=== PATIENT | female | born 1945 | race Caucasian/White ===

== ENCOUNTER 2016-08-18 09:17 | Emergency (ER) | payer MEDICARE, OTHER ==
[2016-08-18 09:34] VITALS: BP 166/71
--- NOTE | 2016-08-18 09:51 | ERNOTE ---
Upper Extremity HPI - General Extremities Pain Location: shoulder: left Time Seen by Provider: 08/18/16 09:39 Source: patient, family Exam Limitations: no limitations - Immun/Allergies/Home Medications Immunizations: IMMUNIZATION HX Immunizations Up to Date Yes History of Influenza Vaccine Yes Hx Pneumococcal Vaccination Yes Allergies/Adverse Reactions: Allergies Allergy/AdvReac Type Severity Reaction Status Date / Time morphine Allergy Intermediate Itching Verified 08/18/16 09:35 nortriptyline Allergy Verified 08/18/16 09:35 sulfamethoxazole AdvReac Verified 08/18/16 09:35 [From Bactrim] trimethoprim [From Bactrim] AdvReac Verified 08/18/16 09:35 Home Medications: HOME MEDICATIONS ALPRAZolam [Xanax] 1 mg PO QID PRN 12/14/14 [Last Taken Unknown] Amiodarone HCl [Cordarone] 100 mg PO DAILY 12/14/14 [Last Taken Unknown] Aspirin [Aspirin Enteric Coated] 81 mg PO DAILY 12/14/14 [Last Taken Unknown] Atorvastatin Calcium [Lipitor] 10 mg PO DAILY 12/14/14 [Last Taken Unknown] Diphenoxylate HCl/Atropine [Lomotil 2.5-0.025 mg Tablet] 2 each PO QID PRN 12/14 [Last Taken Unknown] Insulin Glargine,Hum.rec.anlog [Lantus] 14 units SC HS 12/14/14 [Last Taken Unknown] Mycophenolate Mofetil [Cellcept] 1,000 mg PO BID 12/14/14 [Last Taken Unknown] Saccharomyces Boulardii [Florastor] 250 mg PO BID 12/14/14 [Last Taken Unknown] Tacrolimus [Prograf] 2 mg PO BID 12/14/14 [Last Taken Unknown] Baclofen 10 mg PO Q6H PRN 01/24/15 [Last Taken Unknown] Calcium Phosphate Trib/Vit D3 [Citracal + D3 Gummies] 1 each PO QAM 01/24/15 [ Last Taken Unknown] Levothyroxine Sodium [Synthroid] 100 mcg PO DAILY 04/03/15 [Last Taken Unknown] Acetaminophen [Tylenol] 1,000 mg PO Q6H PRN #0 tablet 04/11/15 [Last Taken Unknown] Ferrous Sulfate 325 mg PO BIDWM #60 tablet 04/11/15 [Last Taken Unknown] Hydrocodone/Acetaminophen [Lorcet 5-325 mg Tablet] 1 each PO Q6H PRN #40 tablet 04/11/15 [Last Taken Unknown] Insulin Regular, Human [Humulin R] 10 unit SC AC #1 vial 04/11/15 [Last Taken Unknown] Multivitamins [Multivitamin Shawn] 1 cap PO DAILY #30 capsule 04/11/15 [Last Taken Unknown] Ondansetron HCl [Zofran] 4 mg PO Q6H PRN #100 tablet 04/11/15 [Last Taken Unknown] Lisinopril 5 mg PO DAILY 07/31/16 [Last Taken Unknown] Mirtazapine [Remeron] 30 mg PO HS 07/31/16 [Last Taken Unknown] - History of Present Illness Narrative: Patient tripped over a dog toy in the kitchen and hit her shoulder. The shoulder is bruised, pain 2/10 at rest 8/10 with movement. she thinks that she might have hit her head as well but denies any pain at this time. The patient has an extensive past history with diabetes, renal transplant and chronic neck pain. Most recently she was admitted for dehydration, UTI and tacrolimus toxicity Date (Duration): 08/18/16 Time (Timing): 01:30 Occurred: this morning Location of Incident: home Severity: moderate Method of Injury: Reports: fell Reason for Fall: Reports: tripped Loss of Consciousness: Reports: no loss of consciousness Modifying Factors - (Improves): Reports: rest Modifying Factors - (Worsens): Reports: movement Associated Symptoms: Denies: tingling, weakness, numbness distally, loss of power (rt arm) Other Injuries: Reports: none Prior Treament: Reports: recently hospitalized Review of Systems - Review of Systems Constitutional: Present: recent illness. Absent: fever, chills EYE: Absent: double vision ENT: Absent: sore throat, throat swelling Respiratory: Absent: shortness of breath Cardiology: Absent: chest pain Gastrointestinal/Abdominal: Absent: nausea, vomiting, abdominal pain Genitourinary: Present: no symptoms reported Musculoskeletal: Present: See HPI, neck pain - chronic, no new Skin: Absent: rash Neurological: Absent: weakness, numbness - Patient's Past Medical History Patient History - Medical: Anxiety, Arthritis, Diabetes Type 2, Depression, GERD , Hypothyroidism, Renal Disease, Renal Failure, UTI'S, Other Patient History - Cardiac/Respiratory: Atrial Fibrillation, Hypertension, Hyperlipidemia Patient History - Cancer: Kidney, Other Patient History - Surgical Procedures: Cataracts, Cholecystectomy, Hysterectomy , Total Hip Replacement, Total Knee Replacement, T & A, Other LMP (females 10-50): Menopausal - Social History Living Situations: home Smoking Status: Never smoker Alcohol Use: sober Drug Use: none - Immunizations Immunizations Up to Date: Yes Physical Exam - Physical Exam General Appearance: Present: wd/wn, alert, no apparent distress Eye Exam: Normal inspection: bilateral, PERRL: bilateral Ears, Nose, Throat: Present: other - superficial abrasion on left yarsani, no swelling, no bleeding Neck: Present: normal inspection, nontender, full range of motion Respiratory: Present: no respiratory distress, no accessory muscle use, lungs clear, decreased breath sounds Cardiovascular/Chest: Present: regular rate, rhythm, no murmur Gastrointestinal/Abdominal: Present: nontender, nondistended, soft Extremity Exam: Present: normal inspection, non-tender, no edema, normal range of motion, other - left shoulder ecchymosis and tenderness, normal passive ROM, pain on active ROM, other joint exams normal Neurological Exam: Present: alert, oriented, normal mood/affect, no motor/ sensory deficits Skin Exam: Present: normal color, warm/dry ED Progress - Vital Signs Patient's Vital Signs:: I have reviewed the patient's vital signs. Vital Signs: Vital Signs 08/18/16 09:29 Temperature 35.5 C L Pulse Rate 68 Respiratory 16 Rate Blood Pressure 166/71 O2 Sat by Pulse 98 Oximetry - X-Ray X-Ray #1 X-Ray: shoulder - clavicle fx Interpretation: Reviewed by me X-Ray #2 X-Ray: clavicle - clavicle fx Interpretation: Reviewed by me - Progress/Reassessment Chief Complaint: Shoulder Injury/Pain Progress Note-Subjective: 08/18/16 10:25 discussed Xray results with patient and 08/18/16 10:28 discussed with Williams Casillas, arm sling is okay, follow up in one week Departure Clinical Impression: Clavicle fracture Qualifiers: Encounter type: initial encounter Clavicle location: lateral end Fracture type : closed Fracture alignment: displaced Laterality: left Qualified Code(s): S42.032A - Displaced fracture of lateral end of left clavicle, initial encounter for closed fracture - Departure Disposition: Home self-care Condition: Good Instructions: Clavicle Fracture, [id number] Referrals: Frank Fisher, PAC [[facility]] - 08/26/16 2:00 pm
== END 2016-08-18 10:45 | disposition home or self-care (01) ==
LOC: ER 09:17
DX: S42.032A Displaced fracture of lateral end of left clavicle, initial encounter for closed fracture (principal); Z78.0 Asymptomatic menopausal state; Z90.710 Acquired absence of both cervix and uterus; Z90.49 Acquired absence of other specified parts of digestive tract; Z96.649 Presence of unspecified artificial hip joint; Z96.659 Presence of unspecified artificial knee joint; W18.09XA Striking against other object with subsequent fall, initial encounter; Y92.000 Kitchen of unspecified non-institutional (private) residence as the place of occurrence of the external cause

== ENCOUNTER 2016-09-21 15:27 | Emergency (ER) | payer MEDICARE, OTHER ==
--- OUTSIDE RECORDS SUMMARY | 2016-09-21 16:23 | XMS REPORT | Continuity of Care Document ---
:1945 Author Organization [facility] ([facility]) Address [address] [place] [address] Phone [phone] Care Team Providers Name Role Phone Dwaine Niño Primary Care Provider [phone] Source Comments This disclosure is being made pursuant to the Care Everywhere program, applicable federal and state laws, and may not contain all informaitonavailable regarding this patient.[facility] ([facility]) Active Allergies and Adverse Reactions Allergen Noted Date Severity Reactions Comments Nortriptyline Urticaria (Hives) Current Medications Prescription Sig. Disp. Refills Start Date End Date Status atorvastatin take 10 mg by mouth Active (LIPITOR) 10 mg at bedtime. tablet esomeprazole take 40 mg by mouth Active (NEXIUM) 40 mg every morning capsule before breakfast. glucose blood 1 Strip by 1 Each 11 01/22/2009 Active test strips Miscellaneous route (ACCU-CHEK RUBIO) before each meal strip and at bedtime. Indications: Abnormal Glucose Tolerance aspirin 81 mg tablet take 1 Tab by mouth Active daily. MULTIVITAMINS take 1 Tab by mouth Active (MULTIVITAMIN PO) daily. levothyroxine Take 100 mcg by Active (SYNTHROID) 100 mcg mouth every morning tablet before breakfast. Indications: Hypothyroidism amiodarone 200 mg Take 100 mg by Active tablet mouth daily CALCIUM PHOSPHATE Take 1 Tab by mouth Active TRIB/VIT D3 daily (CITRACAL + D3, CALCIUM PHOS, PO) Walker ( ROLLING 1 Device daily 1 Each 0 12/20/2014 Active WALKER) misc ALPRAZolam 1 mg Take 1 Tab (1 mg 90 Tab 0 12/22/2014 Active tablet total) by mouth 3 times daily as needed baclofen 10 mg Take 1 Tab (10 mg 60 Tab 0 12/22/2014 Active tablet total) by mouth 2 times daily as needed insulin glargine Inject 15 Units 1 Vial 11 12/22/2014 Active (LanTUS) 100 unit/mL subcutaneously at injection vial bedtime insulin regular Inject 2-10 Units 1 Vial 11 12/22/2014 Active (HumuLIN R) 100 subcutaneously 3 unit/mL injection times daily before vial meals 2 units for BS 150-200; 4 units for BS 201-250; 6 units for BS 251-300; 8 units for BS 301-350; 10 units for BS > 350 and call HYDROCODONE-ACETAMIN 12/14/2014 Active OPHEN 5-325 mg per tablet diphenoxylate-atropi Active ne PO lisinopril 5 mg Take 5 mg by mouth Active tablet daily. SERTraline 50 mg Take 100 mg by Active tablet mouth at bedtime. mirtazapine 30 mg Take 30 mg by mouth Active tablet at bedtime. ferrous sulfate 325 Take 325 mg by Active mg (65 mg iron) mouth 2 times tablet daily. ondansetron 4 mg Take 4 mg by mouth Active tablet 4 times daily as needed. HYDROmorphone 2 mg Take 2 mg by mouth 0 07/18/2015 Active tablet 2 times daily as needed. NOVOLOG FLEXPEN 100 5 09/07/2015 Active unit/mL (3 mL) injection pen FLORASTOR 250 mg Take 250 mg by 5 10/31/2015 Active capsule mouth 2 times daily. tacrolimus 0.5 mg Take 4 capsules (2 240 capsule 12/19/2015 Active capsule mg total) by mouth 2 times daily. mycophenolate Take 2 tablets 120 tablet 11 01/01/2016 Active mofetil 500 mg (1,000 mg total) by tablet mouth 2 times daily. ranitidine 150 mg Take 150 mg by 5 04/02/2016 Active tablet mouth 2 times daily. denosumab (PROLIA) Inject 1 mL (60 mg 1 Syringe 2 05/16/2016 Active 60 mg/mL injection total) subcutaneously once. Every 6 months. cholecalciferol Take 2,000 Units by Active (VITAMIN D3) 2,000 mouth daily. unit tablet acetaminophen 325 mg Take 325 mg by Active tablet mouth every 4 hours as needed. Active Problems Problem Noted Date Abdominal wall hernia 04/08/2016 Periprosthetic fracture around internal prosthetic left hip joint 01/18/2015 Fracture of left femur 12/14/2014 Left leg pain 09/07/2014 Cellulitis 09/07/2014 Venous stasis dermatitis of left lower extremity 09/07/2014 Facet arthropathy, cervical 06/21/2013 Small bowel obstruction, partial 09/07/2011 Aftercare following organ transplant 11/05/2009 Anemia associated with chronic renal failure 07/18/2009 Encounter for long-term (current) use of medications 04/09/2009 Overview: icd10 HTN 02/06/2009 Hyperlipidemia 02/06/2009 Type II DM 02/06/2009 IBD 02/06/2009 Depression 02/06/2009 Diverticulosis 02/06/2009 Sleep apnea 02/06/2009 Renal Cell Carcinoma s/p nephrectomy 10/10/2008 Kidney Transplant 08/14/2008 Overview: ESRD from Diabetic nephropathy. kidney transplant 01/18/2009 Headache(784.0) 08/20/2007 Cervical spondylosis without myelopathy 05/27/2007 Most Recent Encounters Date Type Specialty Providers Description 09/18/2016 Ancillary Orders Radiology Alhyari, Dx: Lymphadenopathy MD Yael (Primary Dx) 09/11/2016 Orders Only Transplant Praveen Forte, Dx: Aftercare MD following organ transplant (Primary Dx) 08/25/2016 Telephone Med GI/Hepatology Adeelc, Provider, Chief Comp: Results 08/12/2016 Nurse Triage Med GI/Hepatology Brianna Chief Comp: Post-op Huey Guzman RN Follow-up Call 08/11/2016 [facility] Med GI/Hepatology Sreedhar Zhou, Dx: Other iron Encounter deficiency anemias Provider, Ddc Capsule 08/04/2016 Telephone Renal and Stephanie Hoffman Chief Comp: Medication Hypertension MD Question 07/25/2016 - Hospital Patient Services 07/26/2016 Encounter 07/23/2016 Telephone Transplant Mary Anne Zuluaga Chief Comp: UNRULY Guzman Coordination Of Care 07/14/2016 Telephone Med GI/Hepatology Xavier Hunter, Chief Comp: Results 07/10/2016 Telephone Transplant Mary Anne Zuluaga Chief Comp: Megan RN Coordination Of Care 07/01/2016 Orders/Notes Med GI/Hepatology Sreedhar Zhou, Dx: Other iron MD deficiency anemias (Primary Dx) Immunizations Name Dates Previously Given Next Due Influenza 05/15/2009 Influenza, unspecified 06/03/2011 Pneumococcal, unspecified 04/03/2014 Social History Tobacco Use Types Packs/Day Years Used Date Never Smoker Smokeless Tobacco: Never Used Tobacco Cessation:Counseling Given: Yes Comments: Alcohol Use Drinks/Week oz/Week Comments No Last Filed Vital Signs Vital Sign Reading Time Taken Blood Pressure 148/55 06/12/2016 10:32 AM [facility] [employer] Pulse 64 06/12/2016 8:10 AM [employer] Temperature 36.8 C (98.2 F) 06/12/2016 8:10 AM [employer] [employer] Respiratory Rate 18 05/19/2016 3:18 PM CDT Height 1.753 m (5' 9") 06/12/2016 8:10 AM [employer] [employer] Weight 65 kg (143 lb 4.8 oz) 06/12/2016 8:10 AM [employer] Body Mass Index 21.15 06/12/2016 8:10 AM [employer] [employer] Oxygen Saturation 97% 06/12/2016 10:32 AM [facility] [employer] Plan of Care Date Type Specialty Providers Description 10/31/2016 Appointment Med GI/Hepatology Xavier Hunter MD Subj: Appointment [address] [place] [address] [phone] (Fax) 02/26/2017 Appointment Anesthesiology 1, [facility] Subj: Appointment Provider Scheduled Health Maintenance Due Date Last Done Comments Hepatitis B Vaccine (1 of 3 - 1945 Primary Series) Tdap Vaccine 01/12/1956 DIABETIC: Microalbumin 1963 Td Vaccine 1963 Mammogram 1985 Colonoscopy 1995 Zoster Vaccine 2005 Pneumococcal Vaccine (1 of 2 2010 - PCV13) DIABETIC: Hemoglobin A1C 02/18/2010 08/21/2009, 10/10/2008 DIABETIC: Cholesterol 12/11/2010 12/11/2009, Additional history exists 06/18/2009, 04/16/2009 Diabetic: Hdl 12/11/2010 12/11/2009, Additional history exists 06/18/2009, 04/16/2009 Diabetic: Ldl 12/11/2010 12/11/2009, Additional history exists 06/18/2009, 04/16/2009 DIABETIC: Triglycerides 12/11/2010 12/11/2009, Additional history exists 06/18/2009, 04/16/2009 DIABETIC: Foot Exam 01/14/2011 DIABETIC: Retinal Eye Exam 01/14/2011 Influenza Vaccine: Seasonal 03/03/2016 06/03/2011, (#1) 05/15/2009 [facility] Annual Coding Diabetes 08/03/2016 12/14/2014, Additional history exists without Complication 12/14/2014, 09/07/2014 [facility] Annual Coding Paraplegia 08/03/2016 HCV Screening Completed 10/10/2008, 04/22/2006 Osteoporosis Screening (DXA Completed 05/13/2016 Bone Density) Results from Last 3 Months EXTERNAL CO2 (09/15/2016) Component Value Range Ext CO2 27.4 24-32 MEQ/L EXTERNAL PLATELET COUNT (09/15/2016) Component Value Range Ext Platelet Count 148 EXTERNAL WBC (09/15/2016) Component Value Range Ext WBC 3.3 K/MM3 EXTERNAL HEMOGLOBIN (09/15/2016) Component Value Range Ext Hemoglobin 8.8 G/DL EXTERNAL POTASSIUM (09/15/2016) Component Value Range Ext Potassium 4.9 3.5-5.0 MEQ/L EXTERNAL CREATININE (09/15/2016) Component Value Range Ext Creatinine 0.99 0.7-1.4 MG/DL EXTERNAL BLOOD UREA NITROGEN (BUN) (09/15/2016) Component Value Range Ext BUN 22(A) 10-20 MG/DL EXTERNAL TACROLIMUS DRUG LEVEL (09/15/2016) Component Value Range Ext Tacrolimus 5.0 5-15 NG/ML ENDOSCOPY CAPSULE (08/12/2016 2:53 PM) Jackie Bowers MD 08/12/20162:53 PM ENDOSCOPY CAPSULE DATE OF PROCEDURE: 08/11/2016 OPERATION/PROCEDURE Video Capsule Endoscopy INDICATIONS: Iron deficiency anemia, chronic diarrhea ATTENDING STAFF Jackie Narvaez MD FELLOW Rafal Valadez MD REFERRING PHYSICIAN: Angel Quintanilla MD CONSENT FOR OPERATION OR PROCEDURE Informed consent was obtained from the patient. HISTORY OF PRESENT ILLNESS Briefly, Giselle Martino is a 71 y.o. female with ELI and chronic diarrhea, hx of renal transplantation, immunosuppressed EGD 01/2016: anteritis, gastric polyp Colon 01/2016: mild diverticulosis, small hemorrhoid PHYSICAL EXAM General: Alert, oriented and in no acute distress. HEENT: Oropharynx normal. Lungs clear bilaterally. Heart regular. Abdomen soft, nontender, nondistended, with normal bowel sounds. PROCEDURAL MEDICATIONS None DESCRIPTION OF OPERATION/PROCEDURE The patient was prepped in standard fashion prior to capsule administration. The capsule was administered on 08/11/2016 830AM. Images were recorded on a mobile recording device, and subsequently transferred to a computer, then analyzed with the use of proprietary software. FINDINGS Total recording time: 07:46:55 The first gastric image was at 00:01:04 The first duodenal image was at 02:51:54 The first cecal image was at 07:05:34 Limited views of the esophagus showed normal Limited views of the stomach showed gastritis Deformed pylorus with a fresh hematin Small bowel prep was good Duodenum, normal mucosa Normal mucosa, mid small bowel Normal mucosa, small bowel A solitary linear ulcer in the TI Colonic evaluation was limited by retained stool. Visualized mucosa appeared normal COMPLICATIONS None reported. IMPRESSIONS 1. Gastritis with deformed pylorus. A small fresh hematin was seen around the area. 2. A solitary linear ulcer in the TI Initial Reviewer Rafal Valadez MD Fellow Physician Department of Internal Medicine Division of Gastroenterology and Hepatology Teaching Statement I have personally reviewed images on this study and confirm the pertinent findings.I have discussed the case with the resident/fellow and agree with the findings and plan as documented. Final Reviewer: Jackie Narvaez MD
[2016-09-21 16:41] LABS: Hematocrit 28.2 % (37.0-47.0); Hemoglobin 8.7 gm/dL (12.5-16.0); Mean Cell Volume 94.3 fl (78-100); Mean Corpuscular Hemoglobin 29.1 pg (27-31); Mean Corpuscular Hgb Conc 30.9 g/dl (32-36); Neutrophil # 3.7 K/mm3 (1.3-6.0); Neutrophil % 72.5 % (42-75.0); Platelet Count 143 K/mm3 (150-450); Red Blood Count 2.99 M/mm3 (4.2-5.4); Red Cell Distribution Width 16.7 % (11.5-14.0); White Blood Count 5.1 K/mm3 (4.0-10.5)
[2016-09-21 17:01] LABS: Albumin * 3.6 gm/dl (3.4-5.0); Anion Gap 11.4 mmol/L (6.8-13.8); BUN/Creatinine Ratio 15.6 (9.0-21.6); Bilirubin, Total 0.2 mg/dL (0.0-1.1); Ca. Corrected For Albumin 8.2 mg/dL (8.4-10.2); Calcium * 8.2 mg/dL (7.9-10.9); Carbon Dioxide 28.2 mmol/L (24-32.6); Potassium 4.6 mmol/L (3.4-4.6); T4 Free * 1.22 ng/dL (0.76-1.46); TSH * 1.457 uIU/mL (0.358-3.74); Total Protein 6.9 gm/dL (6.2-8.2)
--- NOTE | 2016-09-21 17:06 | ERNOTE ---
Trauma/Assault HPI - Narrative Date of Service: 09/21/16 - General Stated Complaint: FALL ON THURSDAY - DIZZINESS, VOMITTING Time Seen by Provider: 09/21/16 16:12 Source: patient, family Exam Limitations: clinical condition - Immun/Allergies/Home Medications Immunizations: IMMUNIZATION HX Immunizations Up to Date Yes History of Influenza Vaccine Yes Hx Pneumococcal Vaccination Yes Allergies/Adverse Reactions: Allergies morphine Allergy (Intermediate, Verified 09/21/16 16:10) Itching nortriptyline Allergy (Verified 09/21/16 16:10) sulfamethoxazole [From Bactrim] Adverse Reaction (Verified 09/21/16 16:10) trimethoprim [From Bactrim] Adverse Reaction (Verified 09/21/16 16:10) Home Medications: HOME MEDICATIONS ALPRAZolam [Xanax] 1 mg PO QID PRN 12/14/14 [Last Taken Unknown] Amiodarone HCl [Cordarone] 100 mg PO DAILY 12/14/14 [Last Taken Unknown] Aspirin [Aspirin Enteric Coated] 81 mg PO DAILY 12/14/14 [Last Taken Unknown] Atorvastatin Calcium [Lipitor] 10 mg PO DAILY 12/14/14 [Last Taken Unknown] Diphenoxylate HCl/Atropine [Lomotil 2.5-0.025 mg Tablet] 2 each PO QID PRN 12/14 [Last Taken Unknown] Insulin Glargine,Hum.rec.anlog [Lantus] 14 units SC HS 12/14/14 [Last Taken Unknown] Mycophenolate Mofetil [Cellcept] 1,000 mg PO BID 12/14/14 [Last Taken Unknown] Saccharomyces Boulardii [Florastor] 250 mg PO BID 12/14/14 [Last Taken Unknown] Tacrolimus [Prograf] 2 mg PO BID 12/14/14 [Last Taken Unknown] Baclofen 10 mg PO Q6H PRN 01/24/15 [Last Taken Unknown] Calcium Phosphate Trib/Vit D3 [Citracal + D3 Gummies] 1 each PO QAM 01/24/15 [ Last Taken Unknown] Levothyroxine Sodium [Synthroid] 100 mcg PO DAILY 04/03/15 [Last Taken Unknown] Acetaminophen [Tylenol] 1,000 mg PO Q6H PRN #0 tablet 04/11/15 [Last Taken Unknown] Ferrous Sulfate 325 mg PO BIDWM #60 tablet 04/11/15 [Last Taken Unknown] Hydrocodone/Acetaminophen [Lorcet 5-325 mg Tablet] 1 each PO Q6H PRN #40 tablet 04/11/15 [Last Taken Unknown] Insulin Regular, Human [Humulin R] 10 unit SC AC #1 vial 04/11/15 [Last Taken Unknown] Multivitamins [Multivitamin Shawn] 1 cap PO DAILY #30 capsule 04/11/15 [Last Taken Unknown] Ondansetron HCl [Zofran] 4 mg PO Q6H PRN #100 tablet 04/11/15 [Last Taken Unknown] Lisinopril 5 mg PO DAILY 07/31/16 [Last Taken Unknown] Mirtazapine [Remeron] 30 mg PO HS 07/31/16 [Last Taken Unknown] - History of Present Illness Narrative: About one week ago she slipped on the carpet at home, falling backward, hitting the back of her head on the bathroom linoleum floor. Unknown if there was loss of consciousness. Disoriented for about a half hour afterwards. Headaches, neck pain and dizziness since, along with nausea. 3 or 4 days ago, vomited once. Today worse, so came by private vehicle to the [facility] ER. There is also ongoing investigation of anemia, as to where her blood is going. Hgb hanging out about 8. Gastroenterology involved in that process. Location Occurred: Reports: home Pain Location: Reports: head, neck Method of Injury: Reports: fall Severity: mild, moderate Modifying Factors - (Improves): Reports: other - nothing Modifying Factors - (Worsens): Reports: jarring, movement Loss of Consciousness: Reports: unsure Associated Symptoms - Trauma: Reports: headache, dizziness Review of Systems - Review of Systems Constitutional: Present: no symptoms reported EYE: Present: no symptoms reported ENT: Present: no symptoms reported Respiratory: Present: no symptoms reported Cardiology: Present: no symptoms reported Gastrointestinal/Abdominal: Present: nausea, vomiting Genitourinary: Present: no symptoms reported Musculoskeletal: Present: See HPI Skin: Present: no symptoms reported Neurological: Present: See HPI Endocrine: Present: no symptoms reported Hematologic/Lymphatic: Present: no symptoms reported Psych: Present: no symptoms reported All Other Systems: All systems neg except as marked - Patient's Past Medical History Patient History - Medical: Anxiety, Arthritis, Diabetes Type 2, Depression, GERD , Hypothyroidism, Renal Disease, Renal Failure, UTI'S Patient History - Cardiac/Respiratory: Atrial Fibrillation Patient History - Cancer: Kidney, Other Patient History - Surgical Procedures: Cataracts, Cholecystectomy, Hysterectomy , Total Hip Replacement, Total Knee Replacement, T & A, Other Patient History - Other: None LMP (females 10-50): Menopausal - Social History Living Situations: home Abuse History: No History of abuse Psych History: No pertinent hx Alcohol Use: sober Drug Use: none - Immunizations Immunizations Up to Date: Yes Hx Pneumococcal Vaccination: Yes History of Influenza Vaccine: Yes Physical Exam - Physical Exam General Appearance: Present: wd/wn, alert, no apparent distress Eye Exam: Normal inspection: bilateral, PERRL: bilateral, EOMI: bilateral Ears, Nose, Throat: Present: normal ENT inspection, hearing decreased Neck: Present: normal inspection, tender posterior midline Respiratory: Present: no respiratory distress, normal breath sounds Cardiovascular/Chest: Present: regular rate, rhythm, no murmur Gastrointestinal/Abdominal: Present: normal bowel sounds, nontender, nondistended, soft, no organomegaly Back Exam: Present: normal inspection, no CVA tenderness, no vertebral tenderness Extremity Exam: Present: normal inspection, no edema Neurological Exam: Present: alert, oriented, normal mood/affect, no motor/ sensory deficits Skin Exam: Present: normal color, warm/dry ED Progress - Results and Orders Patient's Lab Results:: I have reviewed the patient's lab results. - Vital Signs Patient's Vital Signs:: I have reviewed the patient's vital signs. Vital Signs: Vital Signs 09/21/16 16:03 Temperature 36.4 C L Pulse Rate 73 Respiratory 16 Rate Blood Pressure 121/58 O2 Sat by Pulse 99 Oximetry - CT/Ultrasound CT/Ultrasound Narrative: I spoke with the radiologist about her neck and head CT. Neck ok. Head CT shows a very small subarrachnoid hemorrhage with now mass effect. - Progress/Reassessment Chief Complaint: Fall Departure Clinical Impression: Subarachnoid hemorrhage Concussion Qualifiers: Encounter type: initial encounter Loss of consciousness presence/duration: with LOC of 30 min or less Qualified Code(s): S06.0X1A - Concussion with loss of consciousness of 30 minutes or less, initial encounter - Departure Disposition: Home self-care Condition: Good Instructions: Traumatic Brain Injury Additional Instructions: No aspirin till further notice. No medicine like ibuprofen till further notice. Followup with your doctor sometime next week. Rest. Referrals: Dwaine Niño MD [Primary Care Provider] -
[2016-09-21 18:10] VITALS: BP 121/52
== END 2016-09-21 18:20 | disposition home or self-care (01) ==
LOC: ER 15:27
DX: S06.5X1A Traumatic subdural hemorrhage with loss of consciousness of 30 minutes or less, initial encounter (principal); S06.0X1A Concussion with loss of consciousness of 30 minutes or less, initial encounter; W01.198A Fall on same level from slipping, tripping and stumbling with subsequent striking against other object, initial encounter; Y92.002 Bathroom of unspecified non-institutional (private) residence as the place of occurrence of the external cause; E03.9 Hypothyroidism, unspecified

== ENCOUNTER 2017-02-14 11:48 | Observation (INO) | payer MEDICARE, OTHER ==
[2017-02-14] MEDS ORDERED: DIPHTH,PERTUSS(ACELL),TET VAC 0.5 ML VIAL IM ONE ×2 (12:21→12:25)
[2017-02-14] MEDS ORDERED: NORMAL SALINE 500 ML IV ONE (13:39)
[2017-02-14 13:53] LABS: Hematocrit 32.5 % (37.0-47.0); Hemoglobin 9.9 gm/dL (12.5-16.0); Mean Corpuscular Hemoglobin 29.6 pg (27-31); Mean Corpuscular Hgb Conc 30.5 g/dl (32-36); Mean Platelet Volume 10.4 fl (6.0-9.5); Neutrophil # 4.1 K/mm3 (1.3-6.0); Neutrophil % 69.5 % (42-75.0); Platelet Count 135 K/mm3 (150-450); Red Blood Count 3.35 M/mm3 (4.2-5.4); Red Cell Distribution Width 14.6 % (11.5-14.0); White Blood Count 5.8 K/mm3 (4.0-10.5)
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
[2017-02-14 14:15] LABS: Albumin * 3.6 gm/dl (3.4-5.0); Anion Gap 10.9 mmol/L (6.8-13.8); BUN/Creatinine Ratio 18.8 (9.0-21.6); Bilirubin, Total 0.3 mg/dL (0.0-1.1); CKMB 2.5 ng/mL (0.0-9.0); Ca. Corrected For Albumin 9.5 mg/dL (8.4-10.2); Calcium * 9.5 mg/dL (7.9-10.9); Carbon Dioxide 31.5 mmol/L (24-32.6); Potassium 5.4 mmol/L (3.4-4.6); T4 Free * 1.27 ng/dL (0.76-1.46); TSH * 0.535 uIU/mL (0.358-3.74); Total Protein 6.9 gm/dL (6.2-8.2); Troponin I 0.022 ng/ml (0.00-0.10)
[2017-02-14] MEDS ORDERED: ENOXAPARIN SODIUM 30 MG/0.3 ML SYRG SC ONE ×3 (15:07→15:13)
[2017-02-14] MEDS ORDERED: METOPROLOL TARTRATE 25 MG TABLET PO ONE (15:08)
[2017-02-14] MEDS ORDERED: METOPROLOL TARTRATE 25 MG TABLET ONE (15:10)
[2017-02-14] MEDS ORDERED: AMIODARONE HCL 200 MG TABLET PO STA (15:34)
[2017-02-14] MEDS ORDERED: WARFARIN SODIUM 10 MG TABLET PO STA (15:36)
[2017-02-14] MEDS ORDERED: ACETAMINOPHEN 325 MG TABLET PO PRN (15:36)
[2017-02-14 15:41] LABS: INR 1.07 INR (0.90-1.10); Prothrombin Time (Patient) 11.1 Seconds (9.4-11.4)
[2017-02-14] MEDS ORDERED: ONDANSETRON HCL 4 MG TABLET PO PRN (15:43)
[2017-02-14] MEDS ORDERED: DIPHENOXYLATE HCL/ATROP SULF 2.5 MG TABLET PO PRN (15:43)
[2017-02-14] MEDS ORDERED: ALPRAZolam 1 MG TABLET PO PRN (15:43)
--- NOTE | 2017-02-14 15:58 | HP ---
Chief Complaint - Chief Complaint Date of Service: 02/14/17 Time of Service: 15:47 Chief Complaint: Fell History of Present Illness: The patient is a 72 year old female who presented to the [facility] ED with her ex . She stated she was sitting on the toilet last night and fell asleep, falling forward face first into the ground. She awoke when she hit ground and was able to crawl into her bedroom, but unable to get up off floor. She laid there from 2100 to about 0730 this morning until her ex found her. Her ex said she was awake and alert yet asking repetitive questions, but she has improved as the day has progressed. He stated he helped her back into bed and she "fell right asleep". She said she was feeling lightheaded and dizzy while sitting on the toilet. She has been alert and awake, and knows that she is in the ER, thinks the month is November, knows correct year and president. She follows all commands. Denies CP, SOB or neck tenderness. Her monitor however, showed uncontrolled atrial fibrillation 110-140. Her ex stated she was treated for a fib 2 years ago, but that it resolved. She has been on amiodarone to keep it controlled. She is not on an anticoagulant at the present time. Her usual sees Dr. Niño in [place] and her centrifuge separator tender is Dr. Schneider. - Patient's Past Medical History Patient History - Medical: Anxiety, Arthritis, Diabetes Type 2, Depression, GERD , Hypothyroidism, Renal Disease, Renal Failure, UTI'S Patient History - Cardiac/Respiratory: Atrial Fibrillation Patient History - Cancer: Kidney, Other Patient History - Surgical Procedures: Cataracts, Cholecystectomy, Hysterectomy , Total Hip Replacement, Total Knee Replacement, T & A, Other Patient History - Other: None LMP (females 10-50): Menopausal - Social History Living Situations: home Abuse History: No History of abuse Psych History: No pertinent hx Alcohol Use: sober Drug Use: none - Immunizations Immunizations Up to Date: Yes Hx Pneumococcal Vaccination: Yes History of Influenza Vaccine: Yes Review Of Systems (GEN) - Review of Systems Generalized/Overall Review: Present: Malaise EENTM: Present: No Symptoms Reported Respiratory: Present: No Symptoms Reported Cardiac: Present: No Symptoms Reported Abdominal: Present: No Symptoms Reported Genitourinary: Present: No Symptoms Reported Musculoskeletal: Present: No Symptoms Reported Neurological: Present: Headache Skin: Present: No Symptoms Reported Endocrine: Present: No Symptoms Reported Misc: All systems neg except as marked Allergies/Adverse Reactions: Allergies Allergy/AdvReac Type Severity Reaction Status Date / Time morphine Allergy Intermediate Itching Verified 02/14/17 11:58 nortriptyline Allergy Verified 02/14/17 11:58 sulfamethoxazole AdvReac Verified 02/14/17 11:58 [From Bactrim] trimethoprim [From Bactrim] AdvReac Verified 02/14/17 11:58 Home Medications: HOME MEDICATIONS ALPRAZolam [Xanax] 1 mg PO QID PRN 12/14/14 [Last Taken Unknown] Amiodarone HCl [Cordarone] 100 mg PO DAILY 12/14/14 [Last Taken Unknown] Aspirin [Aspirin Enteric Coated] 81 mg PO DAILY 12/14/14 [Last Taken Unknown] Atorvastatin Calcium [Lipitor] 10 mg PO DAILY 12/14/14 [Last Taken Unknown] Diphenoxylate HCl/Atropine [Lomotil 2.5-0.025 mg Tablet] 2 each PO QID PRN 12/14 [Last Taken Unknown] Insulin Glargine,Hum.rec.anlog [Lantus] 14 units SC HS 12/14/14 [Last Taken Unknown] Mycophenolate Mofetil [Cellcept] 1,000 mg PO BID 12/14/14 [Last Taken Unknown] Saccharomyces Boulardii [Florastor] 250 mg PO BID 12/14/14 [Last Taken Unknown] Tacrolimus [Prograf] 2 mg PO BID 12/14/14 [Last Taken Unknown] Baclofen 10 mg PO Q6H PRN 01/24/15 [Last Taken Unknown] Calcium Phosphate Trib/Vit D3 [Citracal + D3 Gummies] 1 each PO QAM 01/24/15 [ Last Taken Unknown] Levothyroxine Sodium [Synthroid] 100 mcg PO DAILY 04/03/15 [Last Taken Unknown] Acetaminophen [Tylenol] 1,000 mg PO Q6H PRN #0 tablet 04/11/15 [Last Taken Unknown] Ferrous Sulfate 325 mg PO BIDWM #60 tablet 04/11/15 [Last Taken Unknown] HYDROcodone/ACETAMINOPHEN [Lorcet 5-325 mg Tablet] 1 each PO Q6H PRN #40 tablet 04/11/15 [Last Taken Unknown] Insulin Regular, Human [Humulin R] 10 unit SC AC #1 vial 04/11/15 [Last Taken Unknown] Multivitamins [Multivitamin Shawn] 1 cap PO DAILY #30 capsule 04/11/15 [Last Taken Unknown] Ondansetron HCl [Zofran] 4 mg PO Q6H PRN #100 tablet 04/11/15 [Last Taken Unknown] Lisinopril 5 mg PO DAILY 07/31/16 [Last Taken Unknown] Mirtazapine [Remeron] 30 mg PO HS 07/31/16 [Last Taken Unknown] Exam - Exam Vital Signs: Vital Signs - Last Taken Temp 36.8 C 02/14/17 15:33 Pulse 129 H 02/14/17 15:33 Resp 18 02/14/17 15:33 BP 149/91 02/14/17 15:33 Pulse Ox 94 02/14/17 15:33 Constitutional: Present: Alert, Oriented x3, Cooperative, Well developed, Well nourished, No distress ENT Exam: Present: normal ENT inspection, hearing grossly normal Eye Exam: bilateral eye: normal inspection, PERRL, EOMI Neck: Present: normal inspection Back Exam: Present: normal inspection, no CVA tenderness, no vertebral tenderness Respiratory: Present: normal breath sounds, no respiratory distress Cardiovascular/Chest: Present: no chest tenderness, tachycardia, irregularly irregular Abdomen: Present: Normal bowel sounds, soft, nontender, nondistended, no rebound tenderness, no hepatospenomegaly, no masses Extremity: Present: normal range of motion, non-tender, normal inspection, no pedal edema Skin Exam: Present: no cyanosis, cool/dry Neurologic: Present: alert, oriented x 3 Appearance: Present: appropriate appearance, appropriate insight, neat, no memory impairment Eye contact: Present: cooperative, good eye contact, normal speech Thoughts: Present: normal thought pattern Diagnostic Studies: Laboratory Results WBC 5.8 K/mm3 (4.0-10.5) 02/14/17 13:43 RBC 3.35 M/mm3 (4.2-5.4) L 02/14/17 13:43 Hgb 9.9 gm/dL (12.5-16.0) L 02/14/17 13:43 Hct 32.5 % (37.0-47.0) L 02/14/17 13:43 MCV 97.0 fl (78-100) 02/14/17 13:43 MCH 29.6 pg (27-31) 02/14/17 13:43 MCHC 30.5 g/dl (32-36) L 02/14/17 13:43 RDW 14.6 % (11.5-14.0) H 02/14/17 13:43 Plt Count 135 K/mm3 (150-450) L 02/14/17 13:43 MPV 10.4 fl (6.0-9.5) H 02/14/17 13:43 Immature Gran % (Auto) 0.30 % (0.001-0.429) 02/14/17 13:43 Immature Gran # (Auto) 0.02 K/mm3 (0.000-0.0310) 02/14/17 13:43 Neutrophils % 69.5 % (42-75.0) 02/14/17 13:43 Lymphocytes % 18.4 % (20-51) L 02/14/17 13:43 Monocytes % 11.0 % (0.0-9) H 02/14/17 13:43 Eosinophils % 0.3 % (0.0-3.0) 02/14/17 13:43 Basophils % 0.5 % (0.0-1.0) 02/14/17 13:43 Nucleated RBC % 0.0 k/mm3 (0-1) 02/14/17 13:43 Neutrophils # 4.1 K/mm3 (1.3-6.0) 02/14/17 13:43 Lymphocytes # 1.1 k/mm3 (1.5-3.5) L 02/14/17 13:43 Monocytes # 0.6 k/mm3 (0.0-1.0) 02/14/17 13:43 Eosinophils # 0.0 k/mm3 (0.0-0.7) 02/14/17 13:43 Absolute Basophils 0.0 k/mm3 (0.0-0.1) 02/14/17 13:43 PT 11.1 Seconds (9.4-11.4) 02/14/17 13:43 INR (Anticoag Therapy) 1.07 INR (0.90-1.10) 02/14/17 13:43 PTT (Rachele) 28.8 Seconds (24-32) 02/14/17 13:43 Sodium 145 mmol/L (132-142) H 02/14/17 13:43 Plasma Sodium 145 mmol/L (130-142) H 02/14/17 13:43 Potassium 5.4 mmol/L (3.4-4.6) H 02/14/17 13:43 Chloride 108 mmol/L (97-106) H 02/14/17 13:43 Carbon Dioxide 31.5 mmol/L (24-32.6) 02/14/17 13:43 Anion Gap 10.9 mmol/L (6.8-13.8) 02/14/17 13:43 BUN 22 mg/dL (3-23) 02/14/17 13:43 Creatinine 1.17 mg/dL (0.4-1.4) 02/14/17 13:43 Est GFR (Non-Af Amer) 48 mL/min (60-130) L D 02/14/17 13:43 BUN/Creatinine Ratio 18.8 (9.0-21.6) 02/14/17 13:43 Random Glucose 112 mg/dL (70-110) H 02/14/17 13:43 Calcium 9.5 mg/dL (7.9-10.9) 02/14/17 13:43 Calcium Adj for Albumin 9.5 mg/dL (8.4-10.2) 02/14/17 13:43 Total Bilirubin 0.3 mg/dL (0.0-1.1) 02/14/17 13:43 AST 18 U/L (0-48) 02/14/17 13:43 ALT 19 U/L (19-67) 02/14/17 13:43 Alkaline Phosphatase 224 U/L (50-170) H 02/14/17 13:43 Creatine Kinase 141 U/L (0-259) 02/14/17 13:43 CK-MB (CK-2) 2.5 ng/mL (0.0-9.0) 02/14/17 13:43 Troponin I 0.022 ng/ml (0.00-0.10) 02/14/17 13:43 Total Protein 6.9 gm/dL (6.2-8.2) 02/14/17 13:43 Albumin 3.6 gm/dl (3.4-5.0) 02/14/17 13:43 TSH 0.535 uIU/mL (0.358-3.74) 02/14/17 13:43 Free T4 1.27 ng/dL (0.76-1.46) 02/14/17 13:43 Assessment/Plan - Narrative Narrative: Admit. Lovenox. Coumadin. Follow labs. Control rate. Increase amiodarone. - Assessment/Plan (1) Atrial fibrillation with RVR Problem: Acute (2) Fall Problem: Acute Qualifiers: Encounter type: initial encounter Qualified Code(s): W19.XXXA - Unspecified fall, initial encounter (3) Head contusion Problem: Acute Qualifiers: Encounter type: initial encounter Contusion of head detail: other part of head Qualified Code(s): S00.83XA - Contusion of other part of head, initial encounter (4) Hyperlipidemia Problem: Chronic (5) Hypertension Problem: Chronic (6) Hypothyroidism Problem: Chronic (7) SARAH (obstructive sleep apnea) Problem: Chronic (8) Renal transplant recipient Problem: Chronic
[2017-02-14 16:22] LABS: Urine Appearance Clear; Urine Bacteria 1+; Urine Bilirubin Negative (NEGATIVE); Urine Blood Negative /ul (NEGATIVE); Urine Color Yellow; Urine Ketone Negative (NEGATIVE); Urine Nitrite Negative (NEGATIVE); Urine Protein Negative (NEGATIVE); Urine RBC None Seen /hpf (0-5); Urine Urobilinogen Normal (NORMAL); Urine WBC None Seen /hpf (0-5); Urine pH 5.5 pH (5.0-7.0)
[2017-02-14] MEDS: INSULIN REGULAR, HUMAN 100 UNITS/ML VIAL SC SCH (18:10)
--- NOTE | 2017-02-14 18:11 | OR ---
Anesthesia Procedure Note - Anesthesia Procedure Note Narrative: Vital Signs - Last Taken Temp 36.8 C 02/14/17 15:33 Pulse 129 H 02/14/17 15:33 Resp 18 02/14/17 15:33 BP 149/91 02/14/17 15:33 Pulse Ox 94 02/14/17 15:33 O2 Oxygen Delivery Method Room Air 02/14/17 18:08 ANESTHESIA PROCEDURE NOTE Date of procedure: 02/14/2017. Time of procedure: 1750. Performed by: Malcolm Cash CRNA Track Production Engineer: None . Preprocedure diagnosis: A. fib. Difficult venous access.. Post procedure diagnosis: Same. Procedure: IV start Indications: Difficult venous access. Findings: 22-gauge Angiocath IV started in right wrist. EBL: Minimal. Fluids: N/A. Specimen: N/A. Post procedure condition: The patient tolerated the procedure well. No complications were noted. Thank you for this consultation Malcolm Cash CRNA
[2017-02-14] MEDS: FERROUS SULFATE 325 MG TABLET PO SCH ×2 (18:15→18:16)
[2017-02-14] MEDS ORDERED: AMIODARONE HCL 200 MG TABLET ONE (18:37)
[2017-02-14] MEDS ORDERED: WARFARIN SODIUM 5 MG TABLET ONE (18:37)
[2017-02-14] MEDS: HYDROcodone/ACETAMINOPHEN 1 EACH TABLET PO PRN (18:57)
[2017-02-14] MEDS: METOPROLOL TARTRATE 50 MG TABLET PO SCH (20:43)
[2017-02-14] MEDS ORDERED: MIRTAZAPINE 15 MG TABLET PO SCH (21:00)
[2017-02-14] MEDS ORDERED: INSULIN GLARGINE,HUM.REC.ANLOG 100 UNITS/ML VIAL SC SCH (21:00)
[2017-02-14] MEDS: TACROLIMUS ANHYDROUS 0.5 MG CAPSULE PO SCH (21:45)
[2017-02-14] MEDS: MYCOPHENOLATE MOFETIL 500 MG TABLET PO SCH (21:45)
[2017-02-14] MEDS: SACCHAROMYCES BOULARDII 250 MG CAPSULE PO SCH (21:46)
[2017-02-15] MEDS ORDERED: ENOXAPARIN SODIUM 30 MG/0.3 ML SYRG SC ONE (02:50)
[2017-02-15] MEDS: HYDROcodone/ACETAMINOPHEN 1 EACH TABLET PO PRN (02:51)
[2017-02-15] MEDS ORDERED: ENOXAPARIN SODIUM 60 MG/0.6 ML SYRG SC SCH (03:00)
[2017-02-15 06:17] LABS: Hematocrit 30.6 % (37.0-47.0); Hemoglobin 9.3 gm/dL (12.5-16.0); Mean Cell Volume 96.8 fl (78-100); Mean Corpuscular Hemoglobin 29.4 pg (27-31); Mean Corpuscular Hgb Conc 30.4 g/dl (32-36); Neutrophil # 2.4 K/mm3 (1.3-6.0); Neutrophil % 58.1 % (42-75.0); Platelet Count 134 K/mm3 (150-450); Red Blood Count 3.16 M/mm3 (4.2-5.4); Red Cell Distribution Width 14.7 % (11.5-14.0); White Blood Count 4.2 K/mm3 (4.0-10.5)
[2017-02-15 06:23] LABS: Anion Gap 8.8 mmol/L (6.8-13.8); BUN/Creatinine Ratio 17.6 (9.0-21.6); Calcium * 8.6 mg/dL (7.9-10.9); Carbon Dioxide 31.4 mmol/L (24-32.6); Estimated Creat Clear 49.2; Potassium 5.2 mmol/L (3.4-4.6); Prothrombin Time (Patient) 13.8 Seconds (9.4-11.4)
[2017-02-15 06:24] LABS: INR 1.33 INR (0.90-1.10)
[2017-02-15 06:35] VITALS: BP 144/76
[2017-02-15] MEDS ORDERED: LEVOTHYROXINE SODIUM 100 MCG TABLET PO SCH (07:00)
[2017-02-15] MEDS: INSULIN REGULAR, HUMAN 100 UNITS/ML VIAL SC SCH (07:12)
[2017-02-15] MEDS: FERROUS SULFATE 325 MG TABLET PO SCH (08:38)
[2017-02-15] MEDS: MYCOPHENOLATE MOFETIL 500 MG TABLET PO SCH (08:40)
[2017-02-15] MEDS: SACCHAROMYCES BOULARDII 250 MG CAPSULE PO SCH (08:40)
[2017-02-15] MEDS: METOPROLOL TARTRATE 50 MG TABLET PO SCH (08:40)
[2017-02-15] MEDS: TACROLIMUS ANHYDROUS 0.5 MG CAPSULE PO SCH (08:42)
--- NOTE | 2017-02-15 08:46 | DS ---
(1) Atrial fibrillation with RVR Problem: Acute (2) Fall Problem: Acute Qualifiers: Encounter type: initial encounter Qualified Code(s): W19.XXXA - Unspecified fall, initial encounter (3) Head contusion Problem: Acute Qualifiers: Encounter type: initial encounter Contusion of head detail: other part of head Qualified Code(s): S00.83XA - Contusion of other part of head, initial encounter (4) Hyperlipidemia Problem: Chronic (5) Hypertension Problem: Chronic (6) Hypothyroidism Problem: Chronic (7) SARAH (obstructive sleep apnea) Problem: Chronic (8) Renal transplant recipient Problem: Chronic (9) Hyperkalemia Problem: Acute Description of Stay: Following admission, amiodarone increased to 200 mg daily. Remained in a fib. Given therapeutic doses of lovenox. Started on coumadin. Is to followup with Dr. Schneider no later than tomorrow or the next day. Procedures Performed: see notes below - Anesthesia placed peripheral IV Discharge Disposition: Home self care Disposition: Home self-care Condition: Good Discharge Activity: Activity as tolerated Discharge Diet: General/regular food Referrals: Dwaine Niño MD [Primary Care Provider] - Problem Oriented Discharge Instructions to Patient/Family: Fall Prevention in the Home, [id number], Atrial Fibrillation, [id number] Additional Patient Instructions (free text): Followup with Dr. Schneider no later than tomorrow or the next day Prescriptions (Any new or edited meds): Amiodarone HCl [Cordarone] 200 mg PO DAILY #1 tablet Enoxaparin Sodium [Lovenox] 60 mg SC Q12H #6 disp.syrin Ferrous Sulfate 325 mg PO BIDWM #60 tablet Metoprolol Tartrate [Lopressor] 50 mg PO Q12H #60 tablet Warfarin Sodium [Coumadin] 2 mg PO DAILY #30 tablet Complete Home Medications List: Complete Home Medication List: ALPRAZolam [Xanax] 1 mg PO QID PRN 12/14/14 Atorvastatin Calcium [Lipitor] 10 mg PO DAILY 12/14/14 Diphenoxylate HCl/Atropine [Lomotil 2.5-0.025 mg Tablet] 2 each PO QID PRN 12/14 Insulin Glargine,Hum.rec.anlog [Lantus] 14 units SC 12/14/14 Mycophenolate Mofetil [Cellcept] 1,000 mg PO BID 12/14/14 Saccharomyces Boulardii [Florastor] 250 mg PO BID 12/14/14 Tacrolimus [Prograf] 2 mg PO BID 12/14/14 Baclofen 10 mg PO Q6H PRN 01/24/15 Calcium Phosphate Trib/Vit D3 [Citracal + D3 Gummies] 1 each PO QAM 01/24/15 Levothyroxine Sodium [Synthroid] 100 mcg PO DAILY 04/03/15 HYDROcodone/ACETAMINOPHEN [Lorcet 5-325 mg Tablet] 1 each PO Q6H PRN #40 tablet 04/11/15 Insulin Regular, Human [Humulin R] 10 unit SC AC #1 vial 04/11/15 Multivitamins [Multivitamin Shawn] 1 cap PO DAILY #30 capsule 04/11/15 Ondansetron HCl [Zofran] 4 mg PO Q6H PRN #100 tablet 04/11/15 Mirtazapine [Remeron] 30 mg PO HS 07/31/16 Vitamin D 2,000 PO BID 02/14/17 Acetaminophen [Tylenol] 650 mg PO QID PRN #0 tablet 02/15/17 Amiodarone HCl [Cordarone] 200 mg PO DAILY #1 tablet 02/15/17 Enoxaparin Sodium [Lovenox] 60 mg SC Q12H #6 disp.syrin 02/15/17 Ferrous Sulfate 325 mg PO BIDWM #60 tablet 02/15/17 Metoprolol Tartrate [Lopressor] 50 mg PO Q12H #60 tablet 02/15/17 Warfarin Sodium [Coumadin] 2 mg PO DAILY #30 tablet 02/15/17
[2017-02-15] MEDS ORDERED: ATORVASTATIN CALCIUM 10 MG TABLET PO SCH (09:00)
[2017-02-15] MEDS ORDERED: CALCIUM CARBONATE/VITAMIN D3 1 TAB TABLET PO SCH (09:00)
[2017-02-15] MEDS ORDERED: MULTIVITAMINS 1 CAP CAPSULE PO SCH (09:00)
[2017-02-15] MEDS ORDERED: ROSUVASTATIN CALCIUM 10 MG TABLET PO SCH (21:00)
== END 2017-02-15 09:59 | disposition home or self-care (01) ==
LOC: ER 11:48 → MS 15:28
PROVIDERS: ADMIT Family Medicine; ATTEND Family Medicine
DX: I48.2 Chronic atrial fibrillation (principal); S00.03XA Contusion of scalp, initial encounter; S50.01XA Contusion of right elbow, initial encounter; S80.02XA Contusion of left knee, initial encounter; S80.01XA Contusion of right knee, initial encounter; W18.11XA Fall from or off toilet without subsequent striking against object, initial encounter; Y92.002 Bathroom of unspecified non-institutional (private) residence as the place of occurrence of the external cause; E11.9 Type 2 diabetes mellitus without complications; Z79.4 Long term (current) use of insulin; E03.9 Hypothyroidism, unspecified; F41.8 Other specified anxiety disorders; I10 Essential (primary) hypertension; K21.9 Gastro-esophageal reflux disease without esophagitis; G47.33 Obstructive sleep apnea (adult) (pediatric); E78.5 Hyperlipidemia, unspecified; Z94.0 Kidney transplant status; Z23 Encounter for immunization
CPT/HCPCS: 36415; 70450; 73080; 80048; 80053; 81001; 82550; 82553; 84439; 84443; 84484; 85025; 85610; 85730; 90471; 90715; 93005; 96372; 99285; G0378

== ENCOUNTER 2017-03-26 17:30 | Emergency (ER) | payer MEDICARE, OTHER ==
[2017-03-26 19:00] VITALS: BP 164/63
--- NOTE | 2017-03-26 19:00 | ERNOTE ---
Upper Extremity HPI - Narrative Date of Service: 03/26/17 - General Extremities Pain Location: elbow: right Time Seen by Provider: 03/26/17 17:54 Source: patient Exam Limitations: no limitations - Immun/Allergies/Home Medications Immunizations: IMMUNIZATION HX Immunizations Up to Date Yes History of Influenza Vaccine Yes Hx Pneumococcal Vaccination Yes Allergies/Adverse Reactions: Allergies Allergy/AdvReac Type Severity Reaction Status Date / Time morphine Allergy Intermediate Itching Verified 03/26/17 17:50 nortriptyline Allergy Verified 03/26/17 17:50 sulfamethoxazole AdvReac Verified 03/26/17 17:50 [From Bactrim] trimethoprim [From Bactrim] AdvReac Verified 03/26/17 17:50 Home Medications: HOME MEDICATIONS ALPRAZolam [Xanax] 1 mg PO QID PRN 12/14/14 [Last Taken 02/14/17 01:00] Atorvastatin Calcium [Lipitor] 10 mg PO DAILY 12/14/14 [Last Taken 02/13/17 20: 00] Diphenoxylate HCl/Atropine [Lomotil 2.5-0.025 mg Tablet] 2 each PO QID PRN 12/14 [Last Taken 02/11/17 06:00] Insulin Glargine,Hum.rec.anlog [Lantus] 14 units SC HS 12/14/14 [Last Taken Unknown] Mycophenolate Mofetil [Cellcept] 1,000 mg PO BID 12/14/14 [Last Taken 02/13/17 20:00] Saccharomyces Boulardii [Florastor] 250 mg PO BID 12/14/14 [Last Taken 02/13/17 20:00] Tacrolimus [Prograf] 2 mg PO BID 12/14/14 [Last Taken 02/13/17 20:00] Baclofen 10 mg PO Q6H PRN 01/24/15 [Last Taken 02/13/17 20:00] Calcium Phosphate Trib/Vit D3 [Citracal + D3 Gummies] 1 each PO QAM 01/24/15 [ Last Taken 02/13/17 08:00] Levothyroxine Sodium [Synthroid] 100 mcg PO DAILY 04/03/15 [Last Taken 02/13/17 08:00] HYDROcodone/ACETAMINOPHEN [Lorcet 5-325 mg Tablet] 1 each PO Q6H PRN #40 tablet 04/11/15 [Last Taken 02/13/17 20:00] Insulin Regular, Human [Humulin R] 10 unit SC AC #1 vial 04/11/15 [Last Taken Unknown] Multivitamins [Multivitamin Shawn] 1 cap PO DAILY #30 capsule 04/11/15 [Last Taken 02/13/17 08:00] Ondansetron HCl [Zofran] 4 mg PO Q6H PRN #100 tablet 04/11/15 [Last Taken 20:00] Mirtazapine [Remeron] 30 mg PO HS 07/31/16 [Last Taken 02/13/17 20:00] Vitamin D 2,000 PO BID 02/14/17 [Last Taken 02/13/17 20:00] Acetaminophen [Tylenol] 650 mg PO QID PRN #0 tablet 02/15/17 [Last Taken Unknown ] Amiodarone HCl [Cordarone] 200 mg PO DAILY #1 tablet 02/15/17 [Last Taken Unknown] Enoxaparin Sodium [Lovenox] 60 mg SC Q12H #6 disp.syrin 02/15/17 [Last Taken Unknown] Ferrous Sulfate 325 mg PO BIDWM #60 tablet 02/15/17 [Last Taken Unknown] Metoprolol Tartrate [Lopressor] 50 mg PO Q12H #60 tablet 02/15/17 [Last Taken Unknown] Warfarin Sodium [Coumadin] 2 mg PO DAILY #30 tablet 02/15/17 [Last Taken Unknown ] - History of Present Illness Narrative: Patient presents to the ED for right elbow pain. She relates that she was going to the dentist this am and tripped falling onto her right elbow. dT UTD. She noticed increased swelling and pain right elbow since this am so came in to get checked. Denies other injuries. No fever. No shoulder, wrist or hand pain. She has not seen anyone else for this. No acute focal N/T/W. No CP or SOB. No head injury. No new neck or back pain. Occurred: this morning Location of Incident: other - dentist office Severity: mild Method of Injury: Reports: fell Reason for Fall: Reports: tripped Loss of Consciousness: Reports: no loss of consciousness Modifying Factors - (Improves): Reports: rest Modifying Factors - (Worsens): Reports: movement Associated Symptoms: Denies: tingling, weakness, numbness distally, loss of feeling Other Injuries: Reports: none Prior Treament: Denies: recently hospitalized Review of Systems - Review of Systems Constitutional: Absent: fever Respiratory: Absent: shortness of breath Cardiology: Absent: chest pain Gastrointestinal/Abdominal: Absent: abdominal pain Neurological: Absent: weakness - Patient's Past Medical History Patient History - Medical: Anxiety, Arthritis, Diabetes Type 2, Depression, GERD , Hypothyroidism, Renal Disease, Renal Failure, UTI'S Patient History - Cardiac/Respiratory: Atrial Fibrillation Patient History - Cancer: Kidney, Other Patient History - Surgical Procedures: Cataracts, Cholecystectomy, Hysterectomy , Total Hip Replacement, Total Knee Replacement, T & A, Other Patient History - Other: None - Family History Mother Family History - Medical: , History Unknown Family History - Cardiac/Respiratory: CHF Family History - Cancer: History Unknown Brother Family History - Medical: Diabetes Type 2 Family History - Cardiac/Respiratory: History Unknown Family History - Cancer: Other - Social History Living Situations: spouse Abuse History: No History of abuse Psych History: No pertinent hx Alcohol Use: sober Drug Use: none - Immunizations Immunizations Up to Date: Yes Hx Pneumococcal Vaccination: Yes History of Influenza Vaccine: Yes Physical Exam - Physical Exam General Appearance: Present: alert, no apparent distress Head Exam: Present: normal inspection Eye Exam: Normal inspection: bilateral Ears, Nose, Throat: Present: other - had dental work today Neck: Present: nontender. Absent: tender posterior midline Respiratory: Present: no respiratory distress, normal breath sounds, no accessory muscle use, lungs clear Cardiovascular/Chest: Present: regular rate, rhythm, normal peripheral pulses, other - strong radial pulse. Gastrointestinal/Abdominal: Present: normal bowel sounds, nontender, soft Extremity Exam: Present: non-tender, other - No right shoulder or wrist/hand tendenress. Right elbow with mild diffuse tenderness noted. Moderate elbow swelling. No clnical dislocation. No compartment syndrome. No acute neuro/ vascular deficits.. Absent: bony tenderness Neurological Exam: Present: alert, normal mood/affect, no motor/sensory deficits , other - No acute focal motor or sensory deficits noted. Skin Exam: Present: normal color, warm/dry ED Progress - Vital Signs Patient's Vital Signs:: I have reviewed the patient's vital signs. Vital Signs: Vital Signs 03/26/17 17:38 Temperature 37.2 C Pulse Rate 69 Respiratory 16 Rate Blood Pressure 215/82 O2 Sat by Pulse 89 L Oximetry - X-Ray X-Ray #1 X-Ray: elbow Interpretation: Interp. by me X-ray Comments: No clear fracture. i reviweed official radiology report - Progress/Reassessment Chief Complaint: Upper Extremity Injury/Problem Progress Note-Subjective: 03/26/17 18:57 I was going to splint the arm, hwever I spoke with Dr Leija who is pest control pilot for ortho and instead recommends Sling with ortho office follow- up. She is comfortable with this. i discussed warning signs and reasons to return as well as the need for close f/u. Departure Clinical Impression: Elbow injury - Departure Disposition: Home self-care Condition: Stable Instructions: How to Use a Sling, [id number] Additional Instructions: I have spoken to Dr Leija. he would like you to use the sling. You are to call the orthopedics office in the morning to schedule follow-up. Please return here for increased pain, fever, numbness, tingling, weakness or if your condition worsens or changes in any way. Referrals: Dwaine Niño MD [Primary Care Provider] -
== END 2017-03-26 19:09 | disposition home or self-care (01) ==
LOC: ER 17:30
DX: S59.901A Unspecified injury of right elbow, initial encounter (principal); Z87.440 Personal history of urinary (tract) infections; Z85.528 Personal history of other malignant neoplasm of kidney; W01.0XXA Fall on same level from slipping, tripping and stumbling without subsequent striking against object, initial encounter; Y92.89 Other specified places as the place of occurrence of the external cause

== ENCOUNTER 2019-07-18 11:05 | Inpatient (IN) ==
[2019-07-18 11:53] LABS: Hematocrit 34.2 % (37.0-47.0); Hemoglobin 10.5 gm/dL (12.5-16.0); Mean Cell Volume 96.9 fl (78-100); Mean Corpuscular Hemoglobin 29.7 pg (27-31); Mean Corpuscular Hgb Conc 30.7 g/dl (32-36); Mean Platelet Volume 10.4 fl (8-12.5); Neutrophil # 13.2 K/mm3 (1.3-6.0); Neutrophil % 86.7 % (42-75.0); Platelet Count 188 K/mm3 (150-450); Red Blood Count 3.53 M/mm3 (4.2-5.4); Red Cell Distribution Width 13.9 % (11.5-14.0); White Blood Count 15.2 K/mm3 (4.0-10.5)
[2019-07-18 12:01] LABS: Urine Bilirubin Negative (NEGATIVE); Urine Blood Negative /ul (NEGATIVE); Urine Ketone Negative (NEGATIVE); Urine Protein Negative (NEGATIVE); Urine Specific Gravity 1.025 SP.GR. (1.005-1.010); Urine Urobilinogen Normal (NORMAL); Urine pH 5.5 pH (5.0-7.0)
[2019-07-18 12:14] LABS: Urine Appearance Clear (CLEAR); Urine Bacteria TRACE; Urine Color Yellow; Urine Nitrite Positive (NEGATIVE); Urine RBC None Seen /hpf (0-5)
[2019-07-18 12:36] LABS: Albumin * 2.7 gm/dl (3.4-5.0); Anion Gap 14.2 mmol/L (6.8-13.8); BUN/Creatinine Ratio 23.9 (9.0-21.6); Bilirubin, Total 0.3 mg/dL (0.0-1.1); Ca. Corrected For Albumin 10.5 mg/dL (8.4-10.2); Calcium * 9.8 mg/dL (7.9-10.9); Carbon Dioxide 27.6 mmol/L (24-32.6); Potassium 3.8 mmol/L (3.4-4.6); Total Protein 5.4 gm/dL (6.2-8.2)
--- NOTE | 2019-07-18 12:59 | ERNOTE ---
Neuro HPI ER Record Date of Service: 07/18/19 Presenting Symptoms: difficulty walking, falling, other - lethargy Time Seen by Provider: 07/18/19 11:15 Source: patient, family, RN notes reviewed, past records Exam Limitations: clinical condition Immunizations: IMMUNIZATION HX Immunizations Up to Date Yes History of Influenza Vaccine No Hx Pneumococcal Vaccination Yes Allergies/Adverse Reactions: Allergies Allergy/AdvReac Type Severity Reaction Status Date / Time morphine Allergy Intermediate Itching Verified 06/27/19 13:53 nortriptyline Allergy Mild RASH Verified 06/27/19 13:53 sulfamethoxazole AdvReac Mild severe Verified 06/27/19 13:53 [From Bactrim] diarrhea trimethoprim [From Bactrim] AdvReac Mild severe Verified 06/27/19 13:53 diarrhea Home Medications: HOME MEDICATIONS Diphenoxylate HCl/Atropine [Lomotil 2.5-0.025 mg Tablet] 2 ea PO QID PRN 12/14/14 [Last Taken 02/11/17 06:00] Insulin Glargine,Hum.rec.anlog [Lantus] 28 units SC HS 12/14/14 [Last Taken Unknown] Mycophenolate Mofetil [Cellcept] 1,000 mg PO BID 12/14/14 [Last Taken 02/13/17 20:00] Saccharomyces Boulardii [Florastor] 250 mg PO BID 12/14/14 [Last Taken 02/13/17 20:00] Tacrolimus [Prograf] 2 mg PO BID 12/14/14 [Last Taken 02/13/17 20:00] Baclofen 10 mg PO Q6H PRN 01/24/15 [Last Taken 02/13/17 20:00] Levothyroxine Sodium [Synthroid] 100 mcg PO DAILY 04/03/15 [Last Taken 02/13/17 08:00] HYDROcodone/ACETAMINOPHEN [Lorcet 5-325 mg Tablet] 1 ea PO Q6H PRN #40 tab 04/11/15 [Last Taken 02/13/17 20:00] Insulin Regular, Human [Humulin R] 10 unit SC AC #1 vial 04/11/15 [Last Taken Unknown] Multivitamins [Multivitamin Shawn] 1 cap PO DAILY #30 cap 04/11/15 [Last Taken 02/13/17 08:00] atorvastatin 10 mg tablet 10 mg PO DAILY 03/19/18 [Last Taken Unknown] aspirin 325 mg tablet,delayed release 325 mg PO DAILY 07/07/18 [Last Taken Unknown] calcium phosphate-vitamin D3 250 mg calcium-500 unit chewable tablet 1 tab PO BID tab 07/07/18 [Last Taken Unknown] cholecalciferol (vitamin D3) 2,000 unit capsule 2,000 unit PO DAILY 07/07/18 [Last Taken Unknown] cranberry concentrate-ascorbic acid 140 mg-100 mg capsule 1 cap PO DAILY cap 07/07/18 [Last Taken Unknown] ondansetron HCl 4 mg tablet 4 mg PO QID PRN 07/07/18 [Last Taken Unknown] amiodarone 200 mg tablet 100 mg PO DAILY tab 10/26/18 [Last Taken Unknown] fesoterodine 8 mg tablet,extended release 24 hr 8 mg PO DAILY 10/26/18 [Last Taken Unknown] metoprolol tartrate 25 mg tablet 25 mg PO BID tab 10/26/18 [Last Taken Unknown] aripiprazole 10 mg tablet 10 mg PO DAILY #30 tab 05/30/19 [Last Taken Unknown] mirtazapine 30 mg tablet 30 mg PO HS #30 tab 05/30/19 [Last Taken Unknown] sertraline 100 mg tablet 150 mg PO DAILY #45 tab 07/08/19 [Last Taken Unknown] Alprazolam 1 mg PO QID PRN 07/18/19 [Last Taken Unknown] - History of Present Illness Narrative: Giselle is a 74 year old female brought to the ED by ambulance from her home for altered mental status. She lives alone and has home health. She and her are but he has been trying to care for her. He reports that her mentation and alertness have gradually declined over the past several days. She has had similar symptoms in the past that were due to a UTI. She has also had diarrhea for 10 days. She has had several falls. She is diabetic and her blood sugars have been in the 200's despite her not eating. She has been seeing podiatry for a wound on her left great toe. This is healing. - Character of Deficits New weakness: Present: general (diffuse) Additional Deficits: Present: decrease ability to stand, decrease ability to walk, falling, cannot walk Baseline Cognition: Present: alert, oriented x 4 Baseline Gait: Present: walks only w/ assistance Associated Symptoms: Reports: fever/chills, confused, decreased responsiveness Prior Treament: Reports: similar symptoms before. Denies: recently seen Review of Systems - Narrative Narrative: ROS provided by - Review of Systems Constitutional: Present: chills, fatigue, decreased activity level EYE: Present: no symptoms reported ENT: Present: no symptoms reported Respiratory: Absent: shortness of breath, cough Cardiology: Absent: syncope Gastrointestinal/Abdominal: Present: diarrhea, eating less, drinking less. Absent: vomiting Genitourinary: Present: other - incontinent Musculoskeletal: Present: no symptoms reported Skin: Present: lesions. Absent: rash Neurological: Present: weakness. Absent: seizure, pre-existing deficit Endocrine: Present: no symptoms reported Hematologic/Lymphatic: Absent: easy bruising, easy bleeding Psych: Present: no symptoms reported Medical History (Last Reviewed 07/18/19 @ 12:57 by Sabra Reyes NP) Generalized anxiety disorder (Chronic) Major depression (Chronic) Influenza vaccine refused patient states she will receive at pharm on later date. 06/04/18 Melanoma Onset Date: 2018 left lower extremity Neck pain Onset Date: Unknown sees pain clinic IC Acute pain of both shoulders Anxiety Arthropathy Atrial fibrillation Bipolar disorder Chronic headaches Chronic kidney disease Chronic pain syndrome Colitis Depression Diabetes mellitus GERD (gastroesophageal reflux disease) Heart disease Hemodialysis patient Hypercholesteremia Hypertension Hypothyroidism Insomnia due to other mental disorder Irritable bowel syndrome with diarrhea Major depression, recurrent Neck pain, chronic Panic attacks Vitamin D deficiency Cancer of kidney Fracture closed, humerus Hernia of abdominal wall Hip fracture Humeral fracture Intestinal obstruction Small bowel obstruction Visual disturbance Surgical History: Surgical History (Last Reviewed 07/18/19 @ 12:57 by Sabra Reyes NP) Status post surgical removal of malignant neoplasm of skin Onset Date: 2018 left lower leg-[place] Cataract unknown date Fracture of anatomical neck of right humerus History of arthroscopy of knee unknown date History of cholecystectomy unknown date History of colonoscopy 2016 History of esophagogastroduodenoscopy 2016 History of hernia repair unknown date History of hysterectomy unknown date History of resection of small bowel 06/26/2009 History of retained foreign body fully removed 06/26/2009 History of revision of total hip arthroplasty Left December 2014 Right Apr 2015 History of tonsillectomy as a child Kidney replaced by transplant Kidney replaced by transplant 01/17/2009 Presence of surgically created AV shunt for hemodialysis 2005 S/p cadaver renal transplant 2008 Family History: Family History (Last Reviewed 07/18/19 @ 12:57 by Sabra Reyes NP) Brother CVA (cerebral vascular accident) Heart disease Cancer Diabetes Dementia Father Heart disease Diabetes Alcohol abuse Sister Thyroid disease Irritable bowel syndrome (IBS) Mother Diabetes Daughter Diabetes Social History: (Last Reviewed 07/18/19 @ 12:57 by Sabra Reyes NP) Social History: Marital status: lives independently: Yes household members: spouse current occupational status: retired Service: No Tobacco: Smoking Status: Never smoker Alcohol: alcohol intake: former Substance Use: substance use type: does not use Dietary Habits: caffeine: Yes caffeine comment: occasional Type: other, carbonated beverages Physical Exam - Physical Exam General Appearance: Present: wd/wn, lethargic - arouseable for short periods of time Head Exam: Present: normal inspection Eye Exam: Normal inspection: bilateral Neck: Present: nontender, supple, other - severe kyphosis Respiratory: Present: no respiratory distress, normal breath sounds, no accessory muscle use, lungs clear Cardiovascular/Chest: Present: regular rate, rhythm, normal peripheral pulses, systolic murmur Gastrointestinal/Abdominal: Present: nontender, nondistended, soft Extremity Exam: Present: normal inspection, non-tender, no edema Neurological Exam: Present: no motor/sensory deficits. Absent: alert Skin Exam: Present: warm/dry, pallor, other - healing ulceration to left great toe Paul Coma Scale - Assess Eye Opening: To Voice Motor: Obeys Commands Verbal: Confused - Total Coma Scale Total: 13 Progress - Results and Orders Patient's Lab Results:: I have reviewed the patient's lab results. - Vital Signs Patient's Vital Signs:: I have reviewed the patient's vital signs. Vital Signs: Vital Signs 07/18/19 11:08 07/18/19 11:41 07/18/19 11:42 Temperature 36.5 C Pulse Rate 74 75 75 Respiratory Rate 27 H 14 Blood Pressure 108/52 O2 Sat by Pulse Oximetry 98 97 07/18/19 12:04 07/18/19 12:30 Temperature Pulse Rate 77 77 Respiratory Rate 16 16 Blood Pressure 120/63 112/59 O2 Sat by Pulse Oximetry 96 94 - Progress/Reassessment Chief Complaint: Altered Mental Status Progress:: Unchanged Plan - Plan Plan: Dr. Sirucek contacted, patient will be admitted to observation. IV Rocephin and fluids ordered. Blood and urine cultures are pending. Departure Clinical Impression: Urinary tract infection Qualifiers: Urinary tract infection type: site unspecified Hematuria presence: without hematuria Qualified Code(s): N39.0 - Urinary tract infection, site not specified Altered mental status Qualifiers: Altered mental status type: somnolence Qualified Code(s): R40.0 - Somnolence - Departure Disposition: Still a patient Condition: Stable
[2019-07-18] MEDS ORDERED: NORMAL SALINE 1,000 ML IV ONE (13:34)
[2019-07-18] MEDS ORDERED: ceFAZolin SODIUM 1 GM VIAL IV ONE (13:34)
[2019-07-18] MEDS ORDERED: ceFAZolin SODIUM 1 GM in DEXTROSE 5 % IN WATER 100 ML IV ONE ×2 (14:15)
[2019-07-18] MEDS: NORMAL SALINE 1,000 ML IV PRN (17:50)
[2019-07-18] MEDS ORDERED: CEPHALEXIN MONOHYDRATE 250 MG CAPSULE ONE (21:48)
[2019-07-18] MEDS: CEPHALEXIN MONOHYDRATE 500 MG CAPSULE PO SCH (21:52)
[2019-07-19] MEDS: NORMAL SALINE 1,000 ML IV PRN ×3 (03:46→23:59)
[2019-07-19] MEDS: INSULIN LISPRO 100 UNITS/ML VIAL SC SCH ×4 (06:51→22:01)
[2019-07-19] MEDS: LEVOTHYROXINE SODIUM 100 MCG TABLET PO SCH (06:51)
[2019-07-19 07:18] LABS: Hematocrit 33.4 % (37.0-47.0); Hemoglobin 10.4 gm/dL (12.5-16.0); Mean Cell Volume 95.7 fl (78-100); Mean Corpuscular Hemoglobin 29.8 pg (27-31); Mean Corpuscular Hgb Conc 31.1 g/dl (32-36); Mean Platelet Volume 10.9 fl (8-12.5); Neutrophil # 16.4 K/mm3 (1.3-6.0); Neutrophil % 90.7 % (42-75.0); Platelet Count 163 K/mm3 (150-450); Red Blood Count 3.49 M/mm3 (4.2-5.4); Red Cell Distribution Width 13.7 % (11.5-14.0)
[2019-07-19 07:24] LABS: Anion Gap 13.9 mmol/L (6.8-13.8); BUN/Creatinine Ratio 26.7 (9.0-21.6); Carbon Dioxide 23.1 mmol/L (24-32.6); Estimated Creat Clear 42.9
[2019-07-19] MEDS: TACROLIMUS ANHYDROUS 0.5 MG CAPSULE PO SCH ×2 (08:59→22:05)
[2019-07-19] MEDS: ARIPiprazole 10 MG TABLET PO SCH (08:59)
[2019-07-19] MEDS: CEPHALEXIN MONOHYDRATE 500 MG CAPSULE PO SCH ×3 (09:00→22:09)
[2019-07-19] MEDS: AMIODARONE HCL 200 MG TABLET PO SCH (09:00)
[2019-07-19] MEDS: METOPROLOL TARTRATE 25 MG TABLET PO SCH ×2 (09:00→22:07)
[2019-07-19] MEDS ORDERED: FESOTERODINE FUMARATE 8 MG PO SCH (09:00)
[2019-07-19] MEDS: ASPIRIN 325 MG TABLET.DR PO SCH (09:00)
[2019-07-19] MEDS ORDERED: ROSUVASTATIN CALCIUM 10 MG TABLET PO SCH (09:00)
[2019-07-19] MEDS: TOLTERODINE TARTRATE 4 MG CAPSULE PO SCH (09:24)
[2019-07-19] MEDS: MYCOPHENOLATE MOFETIL 500 MG TABLET PO SCH ×2 (11:35→22:06)
--- NOTE | 2019-07-19 13:07 | HP ---
Chief Complaint - Chief Complaint Date of Service: 07/19/19 Time of Service: 12:38 Chief Complaint: UTI, altered mental status History of Present Illness: 74-year-old female brought into the ER by ex- who found her to be slightly altered and weak. states that she is unable to care for self right now and feels like she has an infection which this is usually how she acts when she gets this way. In the ER patient had blood work that showed her to have a white count of 15 with a left shift as well as a urine positive for nitrites and leukocyte esterase and bacteria. She is placed under observation for UTI and started on Ancef. Patient's vital signs have been stable and she is been afebrile. Patient currently denies any urinary symptoms. She does endorse diarrhea for the last 10 days but denies abdominal pain/nausea/vomiting/fevers. Medical History (Last Reviewed 07/18/19 @ 14:21 by Benjamin Baeza RN) Generalized anxiety disorder (Chronic) Major depression (Chronic) Influenza vaccine refused patient states she will receive at pharm on later date. 06/04/18 Melanoma Onset Date: 2018 left lower extremity Neck pain Onset Date: Unknown sees pain clinic IC Acute pain of both shoulders Anxiety Arthropathy Atrial fibrillation Bipolar disorder Chronic headaches Chronic kidney disease Chronic pain syndrome Colitis Depression Diabetes mellitus GERD (gastroesophageal reflux disease) Heart disease Hemodialysis patient Hypercholesteremia Hypertension Hypothyroidism Insomnia due to other mental disorder Irritable bowel syndrome with diarrhea Major depression, recurrent Neck pain, chronic Panic attacks Vitamin D deficiency Cancer of kidney Fracture closed, humerus Hernia of abdominal wall Hip fracture Humeral fracture Intestinal obstruction Small bowel obstruction Visual disturbance Surgical History: Surgical History (Last Reviewed 07/18/19 @ 14:21 by Benjamin Baeza RN) Status post surgical removal of malignant neoplasm of skin Onset Date: 2018 left lower leg-[place] Cataract unknown date Fracture of anatomical neck of right humerus History of arthroscopy of knee unknown date History of cholecystectomy unknown date History of colonoscopy 2016 History of esophagogastroduodenoscopy 2016 History of hernia repair unknown date History of hysterectomy unknown date History of resection of small bowel 06/26/2009 History of retained foreign body fully removed 06/26/2009 History of revision of total hip arthroplasty Left December 2014 Right Apr 2015 History of tonsillectomy as a child Kidney replaced by transplant Kidney replaced by transplant 01/17/2009 Presence of surgically created AV shunt for hemodialysis 2005 S/p cadaver renal transplant 2008 Family History: Family History (Last Reviewed 07/18/19 @ 14:21 by Benjamin Baeza RN) Brother CVA (cerebral vascular accident) Heart disease Cancer Diabetes Dementia Father Heart disease Diabetes Alcohol abuse Sister Thyroid disease Irritable bowel syndrome (IBS) Mother Diabetes Daughter Diabetes Social History: (Last Reviewed 07/18/19 @ 14:21 by Benjamin Baeza RN) Social History: Marital status: lives independently: Yes household members: spouse current occupational status: retired Service: No Tobacco: Smoking Status: Never smoker Alcohol: alcohol intake: former Substance Use: substance use type: does not use Dietary Habits: caffeine: Yes caffeine comment: occasional Type: other, carbonated beverages Review Of Systems (GEN) - Review of Systems Generalized/Overall Review: Present: Weakness. Absent: Chills EENTM: Present: No Symptoms Reported Respiratory: Absent: Cough, Shortness of Breath Cardiac: Absent: Chest Pain, Edema, Palpitations Abdominal: Present: Diarrhea. Absent: Nausea, Vomiting Genitourinary: Present: No Symptoms Reported Musculoskeletal: Present: No Symptoms Reported Neurological: Absent: Headache, Numbness, Tingling Immunizations: IMMUNIZATION HX Immunizations Up to Date Yes History of Influenza Vaccine No Hx Pneumococcal Vaccination Yes Allergies/Adverse Reactions: Allergies Allergy/AdvReac Type Severity Reaction Status Date / Time morphine Allergy Intermediate Itching Verified 07/18/19 14:22 nortriptyline Allergy Mild RASH Verified 07/18/19 14:22 sulfamethoxazole AdvReac Mild severe Verified 07/18/19 14:22 [From Bactrim] diarrhea trimethoprim [From Bactrim] AdvReac Mild severe Verified 07/18/19 14:22 diarrhea Home Medications: HOME MEDICATIONS Diphenoxylate HCl/Atropine [Lomotil 2.5-0.025 mg Tablet] 2 ea PO QID PRN 12/14/14 [Last Taken 02/11/17 06:00] Mycophenolate Mofetil [Cellcept] 1,000 mg PO BID 12/14/14 [Last Taken 02/13/17 20:00] Tacrolimus [Prograf] 2 mg PO BID 12/14/14 [Last Taken 02/13/17 20:00] Baclofen 10 mg PO Q6H PRN 01/24/15 [Last Taken 02/13/17 20:00] Levothyroxine Sodium [Synthroid] 100 mcg PO DAILY 04/03/15 [Last Taken 02/13/17 08:00] HYDROcodone/ACETAMINOPHEN [[place] 5-325 mg Tablet] 1 ea PO Q6H PRN #40 tab 04/11/15 [Last Taken 02/13/17 20:00] Multivitamins [Multivitamin Shawn] 1 cap PO DAILY #30 cap 04/11/15 [Last Taken 02/13/17 08:00] atorvastatin 10 mg tablet 10 mg PO DAILY 03/19/18 [Last Taken Unknown] aspirin 325 mg tablet,delayed release 325 mg PO DAILY 07/07/18 [Last Taken Unknown] calcium phosphate-vitamin D3 250 mg calcium-500 unit chewable tablet 1 tab PO BID tab 07/07/18 [Last Taken Unknown] cholecalciferol (vitamin D3) 2,000 unit capsule 2,000 unit PO DAILY 07/07/18 [Last Taken Unknown] cranberry concentrate-ascorbic acid 140 mg-100 mg capsule 4,200 mg PO DAILY cap 07/07/18 [Last Taken Unknown] ondansetron HCl 4 mg tablet 4 mg PO QID PRN 07/07/18 [Last Taken Unknown] amiodarone 200 mg tablet 100 mg PO DAILY tab 10/26/18 [Last Taken Unknown] fesoterodine 8 mg tablet,extended release 24 hr 8 mg PO DAILY 10/26/18 [Last Taken Unknown] metoprolol tartrate 25 mg tablet 25 mg PO BID tab 10/26/18 [Last Taken Unknown] aripiprazole 10 mg tablet 10 mg PO DAILY #30 tab 05/30/19 [Last Taken Unknown] mirtazapine 30 mg tablet 30 mg PO HS #30 tab 05/30/19 [Last Taken Unknown] Acetaminophen [Tylenol] 1 - 2 tab PO Q6H PRN 07/18/19 [Last Taken Unknown] Alprazolam 1 mg PO QID PRN 07/18/19 [Last Taken Unknown] Insulin Detemir [Levemir] 28 unit SQ HS 07/18/19 [Last Taken Unknown] Insulin Regular, Human [Novolin R] See Protocol SC AC 07/18/19 [Last Taken Unknown] Peppermint Oil [Ibgard] 90 mg PO PRN PRN 07/18/19 [Last Taken Unknown] Saccharomyces Boulardii [Florastor] 250 mg PO BID 07/18/19 [Last Taken Unknown] Sertraline HCl [Zoloft] 150 mg PO HS 07/18/19 [Last Taken Unknown] Exam - Exam Vital Signs: Vital Signs - Last Taken Temp 37.6 C 07/19/19 01:41 Pulse 84 07/19/19 09:00 Resp 20 07/19/19 01:41 BP 141/58 07/19/19 09:00 Pulse Ox 91 L 07/19/19 06:27 Constitutional: Present: Alert, Oriented x3, Cooperative, Elderly. Absent: Acute distress, Lethargic, Somnolent ENT Exam: Present: hearing grossly normal. Absent: nasal drainage Eye Exam: bilateral eye: normal inspection, EOMI Neck: Present: non-tender, supple. Absent: lymphadenopathy (R), lymphadenopathy (L) Respiratory: Present: lungs clear, normal breath sounds Cardiovascular/Chest: Present: normal peripheral pulses, regular rate, rhythm Abdomen: Present: Normal bowel sounds, soft, nontender, nondistended, no rebound tenderness /Rectal: Present: Exam deferred Skin Exam: Present: normal color, warm/dry Appearance: Present: appropriate appearance, appropriate insight Eye contact: Present: cooperative, good eye contact, normal speech Thoughts: Present: normal thought pattern, normal mood /affect Diagnostic Studies: Abnormal Lab Results 07/18/19 07/19/19 07/19/19 Range/Units 11:41 07:00 07:00 WBC 18.0 H (4.0-10.5) K/mm3 RBC 3.49 L (4.2-5.4) M/mm3 Hgb 10.4 L (12.5-16.0) gm/dL Hct 33.4 L (37.0-47.0) % MCHC 31.1 L (32-36) g/dl Immature Gran % (Auto) 0.50 H (0.001-0.429) % Immature Gran # (Auto) 0.09 H (0.000-0.0310) K/mm3 Neutrophils % 90.7 H (42-75.0) % Lymphocytes % 2.7 L (20-51) % Neutrophils # 16.4 H (1.3-6.0) K/mm3 Lymphocytes # 0.48 L (1.5-3.5) k/mm3 Sodium 143 H (132-142) mmol/L Plasma Sodium 143 H (130-142) mmol/L Chloride 107 H (97-106) mmol/L Carbon Dioxide 23.1 L (24-32.6) mmol/L Anion Gap 14.2 H 13.9 H (6.8-13.8) mmol/L BUN 38 H 31 H (3-23) mg/dL Creatinine 1.59 H (0.4-1.4) mg/dL Est GFR (Non-Af Amer) 34 L D 49 L D (60-130) mL/min BUN/Creatinine Ratio 23.9 H 26.7 H (9.0-21.6) Random Glucose 121 H 146 H (70-110) mg/dL Calcium Adj for Albumin 10.5 H (8.4-10.2) mg/dL ALT 17 L (19-67) U/L Total Protein 5.4 L (6.2-8.2) gm/dL Albumin 2.7 L (3.4-5.0) gm/dl Microbiology 07/18/19 12:05 Blood Culture - Preliminary Blood NO GROWTH 24 HOURS 07/18/19 11:41 Blood Culture - Preliminary Blood NO GROWTH 24 HOURS 07/18/19 14:52 - Final Nares MRSA Negative 07/18/19 11:30 Urine Culture - Preliminary Urine,Catheterized Gram Negative Bacilli Laboratory Results WBC 18.0 K/mm3 (4.0-10.5) H 07/19/19 07:00 RBC 3.49 M/mm3 (4.2-5.4) L 07/19/19 07:00 Hgb 10.4 gm/dL (12.5-16.0) L 07/19/19 07:00 Hct 33.4 % (37.0-47.0) L 07/19/19 07:00 MCV 95.7 fl (78-100) 07/19/19 07:00 MCH 29.8 pg (27-31) 07/19/19 07:00 MCHC 31.1 g/dl (32-36) L 07/19/19 07:00 RDW 13.7 % (11.5-14.0) 07/19/19 07:00 Plt Count 163 K/mm3 (150-450) 07/19/19 07:00 MPV 10.9 fl (8-12.5) 07/19/19 07:00 Immature Gran % (Auto) 0.50 % (0.001-0.429) H 07/19/19 07:00 Immature Gran # (Auto) 0.09 K/mm3 (0.000-0.0310) H 07/19/19 07:00 Neutrophils % 90.7 % (42-75.0) H 07/19/19 07:00 Lymphocytes % 2.7 % (20-51) L 07/19/19 07:00 Monocytes % 5.7 % (0.0-9) 07/19/19 07:00 Eosinophils % 0.2 % (0.0-3.0) 07/19/19 07:00 Basophils % 0.2 % (0.0-1.0) 07/19/19 07:00 Nucleated RBC % 0.0 k/mm3 (0-1) 07/19/19 07:00 Neutrophils # 16.4 K/mm3 (1.3-6.0) H 07/19/19 07:00 Lymphocytes # 0.48 k/mm3 (1.5-3.5) L 07/19/19 07:00 Monocytes # 1.0 k/mm3 (0.0-1.0) 07/19/19 07:00 Eosinophils # 0.0 k/mm3 (0.0-0.7) 07/19/19 07:00 Absolute Basophils 0.0 k/mm3 (0.0-0.1) 07/19/19 07:00 Sodium 140 mmol/L (132-142) 07/19/19 07:00 Plasma Sodium 141 mmol/L (130-142) 07/19/19 07:00 Potassium 4.0 mmol/L (3.4-4.6) 07/19/19 07:00 Chloride 107 mmol/L (97-106) H 07/19/19 07:00 Carbon Dioxide 23.1 mmol/L (24-32.6) L 07/19/19 07:00 Anion Gap 13.9 mmol/L (6.8-13.8) H 07/19/19 07:00 BUN 31 mg/dL (3-23) H 07/19/19 07:00 Creatinine 1.16 mg/dL (0.4-1.4) 07/19/19 07:00 Est GFR (Non-Af Amer) 49 mL/min (60-130) L D 07/19/19 07:00 BUN/Creatinine Ratio 26.7 (9.0-21.6) H 07/19/19 07:00 Random Glucose 146 mg/dL (70-110) H 07/19/19 07:00 Lactic Acid, Venous 0.8 mmol/L (0.4-2.0) 07/18/19 11:41 Calcium 9.0 mg/dL (7.9-10.9) 07/19/19 07:00 Calcium Adj for Albumin 10.5 mg/dL (8.4-10.2) H 07/18/19 11:41 Total Bilirubin 0.3 mg/dL (0.0-1.1) 07/18/19 11:41 AST 9 U/L (0-48) 07/18/19 11:41 ALT 17 U/L (19-67) L 07/18/19 11:41 Alkaline Phosphatase 114 U/L (50-170) 07/18/19 11:41 Total Protein 5.4 gm/dL (6.2-8.2) L 07/18/19 11:41 Albumin 2.7 gm/dl (3.4-5.0) L 07/18/19 11:41 Urine Color Yellow 07/18/19 11:30 Urine Appearance Clear (CLEAR) 07/18/19 11:30 Urine pH 5.5 pH (5.0-7.0) 07/18/19 11:30 Ur Specific [place] 1.025 SP.GR. (1.005-1.010) 07/18/19 11:30 Urine Protein Negative mg/dL (NEGATIVE) 07/18/19 11:30 Urine Glucose (UA) Negative mg/dL (NEGATIVE) 07/18/19 11:30 Urine Ketones Negative mg/dL (NEGATIVE) 07/18/19 11:30 Urine Blood Negative /ul (NEGATIVE) 07/18/19 11:30 Urine Nitrate Positive (NEGATIVE) H 07/18/19 11:30 Urine Bilirubin Negative mg/dl (NEGATIVE) 07/18/19 11:30 Urine Urobilinogen Normal EU/dl (NORMAL) 07/18/19 11:30 Ur Leukocyte Esterase 25 /ul (NEGATIVE) H 07/18/19 11:30 Urine RBC None seen /hpf (0-5) 07/18/19 11:30 Urine WBC 5-10 /hpf (0-5) H 07/18/19 11:30 Ur Epithelial Cells None seen /hpf (0-5) 07/18/19 11:30 Urine Bacteria Trace (NONE) 07/18/19 11:30 Urine Culture Comments Culture to follow 07/18/19 11:30 Assessment/Plan - Narrative Narrative: 74-year-old placed in observation for UTI and deconditioning. Apparently she was slightly altered in the ER but she was back to baseline when I saw her in her room. She was started on Ancef, will switch over to Keflex. Waiting for culture to return. She was given 1 L bolus of fluid in the ER which I will continue normal saline at 100 due to her acute kidney injury as her creatinine is 1.6. She also apparently has had diarrhea for the last 10 days, though her belly exam is normal and she denies blood in her stool. We will send her stool for routine work-up. Home medications restarted aside from any altering medications including her Xanax. Nurse will call with questions or concerns. No DVT prophylaxis as her stay would likely be less than 48 hours. - Assessment/Plan (1) Urinary tract infection Problem: Acute Qualifiers: Urinary tract infection type: site unspecified Hematuria presence: without hematuria Qualified Code(s): N39.0 - Urinary tract infection, site not specified (2) Acute kidney injury Problem: Acute (3) Diarrhea Problem: Acute (4) Hypertension Problem: Chronic
[2019-07-19] MEDS: VANCOMYCIN HCL 50 MG/ML BTL PO SCH ×2 (19:12→23:57)
[2019-07-19] MEDS ORDERED: SERTRALINE HCL 100 MG TABLET PO SCH (21:00)
[2019-07-19] MEDS: INSULIN DETEMIR 100 UNITS/ML VIAL SC SCH (22:02)
[2019-07-19] MEDS: ROSUVASTATIN CALCIUM 10 MG TABLET PO SCH (22:07)
[2019-07-19] MEDS: SERTRALINE HCL 50 MG TABLET PO SCH (22:08)
[2019-07-19] MEDS: MIRTAZAPINE 15 MG TABLET PO SCH (22:08)
[2019-07-20] MEDS: VANCOMYCIN HCL 50 MG/ML BTL PO SCH ×4 (05:40→23:56)
[2019-07-20] MEDS: INSULIN LISPRO 100 UNITS/ML VIAL SC SCH ×4 (07:00→21:35)
[2019-07-20] MEDS: CEPHALEXIN MONOHYDRATE 500 MG CAPSULE PO SCH ×3 (07:01→21:41)
[2019-07-20] MEDS: LEVOTHYROXINE SODIUM 100 MCG TABLET PO SCH (07:01)
[2019-07-20 09:48] LABS: Hematocrit 31.7 % (37.0-47.0); Mean Cell Volume 96.9 fl (78-100); Mean Corpuscular Hemoglobin 30.6 pg (27-31); Mean Corpuscular Hgb Conc 31.5 g/dl (32-36); Mean Platelet Volume 10.1 fl (8-12.5); Neutrophil # 13.1 K/mm3 (1.3-6.0); Platelet Count 172 K/mm3 (150-450); Red Blood Count 3.27 M/mm3 (4.2-5.4); White Blood Count 14.6 K/mm3 (4.0-10.5)
[2019-07-20] MEDS: ARIPiprazole 10 MG TABLET PO SCH (09:50)
[2019-07-20] MEDS: TACROLIMUS ANHYDROUS 0.5 MG CAPSULE PO SCH ×2 (09:50→21:40)
[2019-07-20] MEDS: MYCOPHENOLATE MOFETIL 500 MG TABLET PO SCH ×2 (09:50→21:36)
[2019-07-20] MEDS: AMIODARONE HCL 200 MG TABLET PO SCH (09:50)
[2019-07-20] MEDS: METOPROLOL TARTRATE 25 MG TABLET PO SCH ×2 (09:50→21:39)
[2019-07-20] MEDS: TOLTERODINE TARTRATE 4 MG CAPSULE PO SCH (09:50)
[2019-07-20] MEDS: ASPIRIN 325 MG TABLET.DR PO SCH (09:50)
[2019-07-20 10:13] LABS: Anion Gap 14.3 mmol/L (6.8-13.8); BUN/Creatinine Ratio 23.8 (9.0-21.6); Calcium * 8.4 mg/dL (7.9-10.9); Carbon Dioxide 22.9 mmol/L (24-32.6); Estimated Creat Clear 47.4; Potassium 3.2 mmol/L (3.4-4.6)
[2019-07-20] MEDS: NORMAL SALINE 1,000 ML IV PRN (10:22)
[2019-07-20] MEDS: POTASSIUM CHLORIDE 40 MEQ/15 ML LIQUID PO SCH (12:43)
--- NOTE | 2019-07-20 18:27 | PN ---
Subjective - Date and Time Seen Date: 07/20/19 Time: 18:22 Subjective Narrative: No acute events overnight, patient sitting comfortably in her chair. Patient tolerating p.o. well. Patient C. difficile screen came back positive and patient started on vancomycin the day before orally. She denies abdominal pain. She still endorses significant diarrhea, 3 spells up to the point seen this morning. She denies nausea or vomiting. She is afebrile and her vital signs b een stable. Objective - Review of Systems Generalized/Overall Review: Denies: Weakness, Chills, Fever EENTM: Reports: No Symptoms Reported Respiratory: Denies: Cough, Shortness of Breath Cardiac: Denies: Chest Pain, Edema Abdominal: Reports: Diarrhea. Denies: Nausea, Vomiting, Abdominal Pain Genitourinary Symptoms: Denies: Burning, Urgency, Frequency Neurological: Reports: No Symptoms Reported Skin: Reports: No Symptoms Reported Endocrine: Reports: No Symptoms Reported - Vitals Vitals: Last Vital Signs Temp 36.5 C 07/20/19 14:59 Pulse 74 07/20/19 14:59 Resp 18 07/20/19 14:59 BP 127/60 07/20/19 14:59 Pulse Ox 96 07/20/19 14:59 - Abnormal Lab Findings Abnormal Lab Findings: Abnormal Lab Results 07/20/19 07/20/19 Range/Units 09:45 09:45 WBC 14.6 H (4.0-10.5) K/mm3 RBC 3.27 L (4.2-5.4) M/mm3 Hgb 10.0 L (12.5-16.0) gm/dL Hct 31.7 L (37.0-47.0) % MCHC 31.5 L (32-36) g/dl Immature Gran % (Auto) 0.50 H (0.001-0.429) % Immature Gran # (Auto) 0.07 H (0.000-0.0310) K/mm3 Neutrophils % 90.0 H (42-75.0) % Lymphocytes % 4.3 L (20-51) % Neutrophils # 13.1 H (1.3-6.0) K/mm3 Lymphocytes # 0.62 L (1.5-3.5) k/mm3 Sodium 144 H (132-142) mmol/L Plasma Sodium 145 H (130-142) mmol/L Potassium 3.2 L (3.4-4.6) mmol/L Chloride 110 H (97-106) mmol/L Carbon Dioxide 22.9 L (24-32.6) mmol/L Anion Gap 14.3 H (6.8-13.8) mmol/L BUN 25 H (3-23) mg/dL Est GFR (Non-Af Amer) 54 L (60-130) mL/min BUN/Creatinine Ratio 23.8 H (9.0-21.6) Random Glucose 141 H (70-110) mg/dL - Exam Constitutional: Present: Alert, Oriented x3, Cooperative ENT Exam: Present: hearing grossly normal, moist mucous membranes. Absent: nasal congestion, nasal drainage Neck: Present: non-tender, supple, other - Significant kyphosis of her C-spine Respiratory: Present: lungs clear, normal breath sounds Cardiovascular/Chest: Present: regular rate, rhythm, no murmur Abdomen: Present: soft, nontender, nondistended, high pitched bowel sounds /Rectal: Present: Exam deferred Skin Exam: Present: normal color, warm/dry Neurologic: Present: alert, normal mood/affect, oriented x 3. Absent: motor weakness, sensory deficit Appearance: Present: appropriate appearance, appropriate insight Eye contact: Present: cooperative, good eye contact Thoughts: Present: normal thought pattern, normal mood /affect Assessment/Plan Plan Narrative: Patient feeling better today. Acute kidney injury is resolved. She is still being treated for UTI, speciation and sensitivities appropriate on antibiotic she is on. Patient was started on vancomycin orally for positive C. difficile. She will be on this for close to 10 days. White count is trending down. Patient's blood pressure stable and well-controlled. Patient or nurse will notify me of any questions or concerns he may have. - Problems/Diagnosis (1) Urinary tract infection Problem: Acute Qualifiers: Urinary tract infection type: site unspecified Hematuria presence: without hematuria Qualified Code(s): N39.0 - Urinary tract infection, site not specified (2) Diarrhea Problem: Acute Qualifiers: Diarrhea type: infectious Qualified Code(s): A09 - Infectious gastroenteritis and colitis, unspecified (3) Acute kidney injury Problem: Resolved (4) Hypertension Problem: Chronic
[2019-07-20] MEDS: ROSUVASTATIN CALCIUM 10 MG TABLET PO SCH (21:36)
[2019-07-20] MEDS: INSULIN DETEMIR 100 UNITS/ML VIAL SC SCH (21:37)
[2019-07-20] MEDS: MIRTAZAPINE 15 MG TABLET PO SCH (21:40)
[2019-07-20] MEDS: SERTRALINE HCL 50 MG TABLET PO SCH (21:40)
[2019-07-20] MEDS: ALPRAZolam 1 MG TABLET PO PRN (21:41)
[2019-07-21] MEDS: VANCOMYCIN HCL 50 MG/ML BTL PO SCH ×4 (05:03→23:47)
[2019-07-21] MEDS: INSULIN LISPRO 100 UNITS/ML VIAL SC SCH ×4 (06:40→21:21)
[2019-07-21] MEDS: LEVOTHYROXINE SODIUM 100 MCG TABLET PO SCH (06:41)
[2019-07-21] MEDS: CEPHALEXIN MONOHYDRATE 500 MG CAPSULE PO SCH ×3 (06:41→21:30)
[2019-07-21 06:47] LABS: Anion Gap 12.9 mmol/L (6.8-13.8); Calcium * 8.3 mg/dL (7.9-10.9); Carbon Dioxide 22.4 mmol/L (24-32.6); Estimated Creat Clear 47.4; Potassium 3.3 mmol/L (3.4-4.6)
[2019-07-21 06:50] LABS: Hematocrit 31.3 % (37.0-47.0); Hemoglobin 9.8 gm/dL (12.5-16.0); Mean Cell Volume 96.9 fl (78-100); Mean Corpuscular Hemoglobin 30.3 pg (27-31); Mean Corpuscular Hgb Conc 31.3 g/dl (32-36); Mean Platelet Volume 10.2 fl (8-12.5); Neutrophil # 5.2 K/mm3 (1.3-6.0); Neutrophil % 76.2 % (42-75.0); Platelet Count 198 K/mm3 (150-450); Red Blood Count 3.23 M/mm3 (4.2-5.4); Red Cell Distribution Width 14.2 % (11.5-14.0); White Blood Count 6.8 K/mm3 (4.0-10.5)
[2019-07-21] MEDS: MYCOPHENOLATE MOFETIL 500 MG TABLET PO SCH ×2 (08:36→22:48)
[2019-07-21] MEDS: ASPIRIN 325 MG TABLET.DR PO SCH (08:36)
[2019-07-21] MEDS: AMIODARONE HCL 200 MG TABLET PO SCH (08:36)
[2019-07-21] MEDS: ARIPiprazole 10 MG TABLET PO SCH (08:36)
[2019-07-21] MEDS: POTASSIUM CHLORIDE 40 MEQ/15 ML LIQUID PO SCH (08:37)
[2019-07-21] MEDS: TOLTERODINE TARTRATE 4 MG CAPSULE PO SCH (08:37)
[2019-07-21] MEDS: METOPROLOL TARTRATE 25 MG TABLET PO SCH ×2 (08:37→21:27)
[2019-07-21] MEDS: TACROLIMUS ANHYDROUS 0.5 MG CAPSULE PO SCH ×2 (08:39→21:28)
--- NOTE | 2019-07-21 17:07 | PN ---
Subjective - Date and Time Seen Date: 07/21/19 Time: 17:07 Subjective Narrative: Pt continues to have diarrhea but has no abdominal discomfort . She states that she is starting to feel better. Her vital signs have been stable and she has been afebrile. Her kidney function is appropriate. Objective - Review of Systems Generalized/Overall Review: Reports: Weakness. Denies: Chills, Fever EENTM: Reports: No Symptoms Reported Respiratory: Denies: Cough, Shortness of Breath Cardiac: Denies: Chest Pain, Edema, Palpitations Abdominal: Reports: Diarrhea. Denies: Nausea, Vomiting, Abdominal Pain Genitourinary Symptoms: Denies: Burning, Urgency, Frequency Musculoskeletal Complaints: Reports: No Symptoms Reported Neurological: Reports: No Symptoms Reported Skin: Reports: No Symptoms Reported Endocrine: Reports: No Symptoms Reported - Vitals Vitals: Last Vital Signs Temp 36.4 C 07/21/19 15:31 Pulse 68 07/21/19 15:31 Resp 17 07/21/19 15:31 BP 127/57 07/21/19 15:31 Pulse Ox 96 07/21/19 15:31 - Abnormal Lab Findings Abnormal Lab Findings: Abnormal Lab Results 07/21/19 07/21/19 Range/Units 06:10 06:15 RBC 3.23 L (4.2-5.4) M/mm3 Hgb 9.8 L (12.5-16.0) gm/dL Hct 31.3 L (37.0-47.0) % MCHC 31.3 L (32-36) g/dl RDW 14.2 H (11.5-14.0) % Immature Gran % (Auto) 0.60 H (0.001-0.429) % Immature Gran # (Auto) 0.04 H (0.000-0.0310) K/mm3 Neutrophils % 76.2 H (42-75.0) % Lymphocytes % 13.5 L (20-51) % Eosinophils % 3.5 H (0.0-3.0) % Lymphocytes # 0.92 L (1.5-3.5) k/mm3 Sodium 147 H (132-142) mmol/L Plasma Sodium 146 H (130-142) mmol/L Potassium 3.3 L (3.4-4.6) mmol/L Chloride 115 H (97-106) mmol/L Carbon Dioxide 22.4 L (24-32.6) mmol/L Est GFR (Non-Af Amer) 54 L (60-130) mL/min Random Glucose 55 L D (70-110) mg/dL - Exam Constitutional: Present: Alert, Oriented x3, Cooperative, Elderly ENT Exam: Present: hearing grossly normal, moist mucous membranes Neck: Present: other - hyperkyphosis Respiratory: Present: lungs clear, normal breath sounds Cardiovascular/Chest: Present: regular rate, rhythm, no murmur Abdomen: Present: Normal bowel sounds, soft, nontender, nondistended Skin Exam: Present: normal color, warm/dry Appearance: Present: appropriate appearance, appropriate insight Eye contact: Present: cooperative, good eye contact Thoughts: Present: normal thought pattern, normal mood /affect Assessment/Plan Plan Narrative: Continue oral vanc for C. Dif diarrhea. Afebrile and vss. No abdominal pain. Once diarrhea starts to decrease in frequency she will be good to go back home but currently not ready. CBC back to normal . Repeat test in the AM. Continue abx for UTI. Kidney Function stable. Repeat BMP in the AM HTN stable - Problems/Diagnosis (1) Diarrhea Problem: Acute Qualifiers: Diarrhea type: infectious Qualified Code(s): A09 - Infectious gastroenteritis and colitis, unspecified (2) Urinary tract infection Problem: Acute Qualifiers: Urinary tract infection type: site unspecified Hematuria presence: without hematuria Qualified Code(s): N39.0 - Urinary tract infection, site not specified (3) Acute kidney injury Problem: Resolved (4) Hypertension Problem: Chronic
[2019-07-21] MEDS: ALPRAZolam 1 MG TABLET PO PRN (17:36)
[2019-07-21] MEDS: ROSUVASTATIN CALCIUM 10 MG TABLET PO SCH (21:25)
[2019-07-21] MEDS: INSULIN DETEMIR 100 UNITS/ML VIAL SC SCH (21:26)
[2019-07-21] MEDS: MIRTAZAPINE 15 MG TABLET PO SCH (21:29)
[2019-07-21] MEDS: SERTRALINE HCL 50 MG TABLET PO SCH (21:29)
[2019-07-22] MEDS: VANCOMYCIN HCL 50 MG/ML BTL PO SCH ×2 (05:32→12:09)
[2019-07-22 07:19] LABS: Hemoglobin 9.8 gm/dL (12.5-16.0); Mean Cell Volume 98.2 fl (78-100); Mean Corpuscular Hemoglobin 30.1 pg (27-31); Mean Corpuscular Hgb Conc 30.6 g/dl (32-36); Mean Platelet Volume 9.8 fl (8-12.5); Neutrophil # 4.6 K/mm3 (1.3-6.0); Neutrophil % 77.2 % (42-75.0); Platelet Count 187 K/mm3 (150-450); Red Blood Count 3.26 M/mm3 (4.2-5.4); Red Cell Distribution Width 14.4 % (11.5-14.0)
[2019-07-22 07:25] LABS: Anion Gap 11.4 mmol/L (6.8-13.8); BUN/Creatinine Ratio 23.8 (9.0-21.6); Carbon Dioxide 23.8 mmol/L (24-32.6); Estimated Creat Clear 49.3; Potassium 4.2 mmol/L (3.4-4.6)
[2019-07-22] MEDS: LEVOTHYROXINE SODIUM 100 MCG TABLET PO SCH (07:31)
[2019-07-22] MEDS: CEPHALEXIN MONOHYDRATE 500 MG CAPSULE PO SCH (07:31)
[2019-07-22] MEDS: INSULIN LISPRO 100 UNITS/ML VIAL SC SCH (07:32)
[2019-07-22] MEDS: ASPIRIN 325 MG TABLET.DR PO SCH (09:47)
[2019-07-22] MEDS: MYCOPHENOLATE MOFETIL 500 MG TABLET PO SCH (09:47)
[2019-07-22] MEDS: ARIPiprazole 10 MG TABLET PO SCH (09:47)
[2019-07-22] MEDS: TOLTERODINE TARTRATE 4 MG CAPSULE PO SCH (09:47)
[2019-07-22] MEDS: TACROLIMUS ANHYDROUS 0.5 MG CAPSULE PO SCH (09:47)
[2019-07-22] MEDS: AMIODARONE HCL 200 MG TABLET PO SCH (09:47)
[2019-07-22] MEDS: POTASSIUM CHLORIDE 40 MEQ/15 ML LIQUID PO SCH (09:48)
[2019-07-22] MEDS: METOPROLOL TARTRATE 25 MG TABLET PO SCH (09:48)
--- NOTE | 2019-07-22 10:38 | DS ---
(1) Diarrhea Problem: Acute Qualifiers: Diarrhea type: infectious Qualified Code(s): A09 - Infectious gastroenteritis and colitis, unspecified (2) Urinary tract infection Problem: Acute Qualifiers: Urinary tract infection type: site unspecified Hematuria presence: without hematuria Qualified Code(s): N39.0 - Urinary tract infection, site not specified (3) Acute kidney injury Problem: Resolved (4) Hypertension Problem: Chronic Date of Discharge:: 07/22/19 Hospital Course: 74-year-old female presented to the ER with weakness dehydration. She has had had acute kidney injury at the time. Urine came back growing Klebsiella which was sensitive to Keflex which is what she initially was started on. The day after admission she admitted to having diarrhea for last 10 days having upwards to 10 loose stools a day. Stool studies came back positive for C. difficile, she was started on oral vancomycin which she responded well to. On the day of discharge she had no longer had any stools night before or the morning of. Her acute kidney injury resolved which was followed closely due to history of renal transplant. Her white count was initially 15 with a left shift, trended downward to 6.0 on day of discharge. Her vital signs are stable and she was afebrile. She has felt much better, responded well to PT, and ready to be discharged home. She will go home with 2 more days of Keflex and 6 more days of oral vancomycin. Procedures Performed: none Results and Findings: Pending Mircobiology Results 07/18/19 12:05 Blood Blood Culture - Preliminary NO GROWTH AFTER 48 HOURS 07/18/19 11:41 Blood Blood Culture - Preliminary NO GROWTH AFTER 48 HOURS 07/19/19 14:54 Stool Stool Culture - Preliminary No Pathogens Isolated Lab Pending Results 07/18/19 11:30: Urine Color Yellow, Urine Appearance Clear, Urine pH 5.5, Ur Specific [place] 1.025, Urine Protein Negative, Urine Glucose (UA) Negative, Urine Ketones Negative, Urine Blood Negative, Urine Nitrate Positive H, Urine Bilirubin Negative, Urine Urobilinogen Normal, Ur Leukocyte Esterase 25 H, Urine RBC None seen, Urine WBC 5-10 H, Ur Epithelial Cells None seen, Urine Bacteria Trace, Urine Culture Comments Culture to follow 07/18/19 11:41: WBC 15.2 H, RBC 3.53 L, Hgb 10.5 L, Hct 34.2 L, MCV 96.9, MCH 29.7, MCHC 30.7 L, RDW 13.9, Plt Count 188, MPV 10.4, Immature Gran % (Auto) 0.30, Immature Gran # (Auto) 0.05 H, Neutrophils % 86.7 H, Lymphocytes % 3.7 L, Monocytes % 8.8, Eosinophils % 0.4, Basophils % 0.1, Nucleated RBC % 0.0, Neutrophils # 13.2 H, Lymphocytes # 0.56 L, Monocytes # 1.3 H, Eosinophils # 0.1, Absolute Basophils 0.0 07/18/19 11:41: Sodium 143 H, Plasma Sodium 143 H, Potassium 3.8, Chloride 105, Carbon Dioxide 27.6, Anion Gap 14.2 H, BUN 38 H, Creatinine 1.59 H, Est GFR (Non-Af Amer) 34 L D, BUN/Creatinine Ratio 23.9 H, Random Glucose 121 H, Calcium 9.8, Calcium Adj for Albumin 10.5 H, Total Bilirubin 0.3, AST 9, ALT 17 L, Alkaline Phosphatase 114, Total Protein 5.4 L, Albumin 2.7 L 07/18/19 11:41: Lactic Acid, Venous 0.8 07/19/19 07:00: WBC 18.0 H, RBC 3.49 L, Hgb 10.4 L, Hct 33.4 L, MCV 95.7, MCH 29.8, MCHC 31.1 L, RDW 13.7, Plt Count 163, MPV 10.9, Immature Gran % (Auto) 0.50 H, Immature Gran # (Auto) 0.09 H, Neutrophils % 90.7 H, Lymphocytes % 2.7 L, Monocytes % 5.7, Eosinophils % 0.2, Basophils % 0.2, Nucleated RBC % 0.0, Neutrophils # 16.4 H, Lymphocytes # 0.48 L, Monocytes # 1.0, Eosinophils # 0.0, Absolute Basophils 0.0 07/19/19 07:00: Sodium 140, Plasma Sodium 141, Potassium 4.0, Chloride 107 H, Carbon Dioxide 23.1 L, Anion Gap 13.9 H, BUN 31 H, Creatinine 1.16, Est GFR (Non-Af Amer) 49 L D, BUN/Creatinine Ratio 26.7 H, Random Glucose 146 H, Calcium 9.0 07/19/19 14:45: Stl C.difficile Tox A&B Positive H 07/20/19 09:45: WBC 14.6 H, RBC 3.27 L, Hgb 10.0 L, Hct 31.7 L, MCV 96.9, MCH 30.6, MCHC 31.5 L, RDW 14.0, Plt Count 172, MPV 10.1, Immature Gran % (Auto) 0.50 H, Immature Gran # (Auto) 0.07 H, Neutrophils % 90.0 H, Lymphocytes % 4.3 L, Monocytes % 4.5, Eosinophils % 0.6, Basophils % 0.1, Nucleated RBC % 0.0, Neutrophils # 13.1 H, Lymphocytes # 0.62 L, Monocytes # 0.7, Eosinophils # 0.1, Absolute Basophils 0.0 07/20/19 09:45: Sodium 144 H, Plasma Sodium 145 H, Potassium 3.2 L, Chloride 110 H, Carbon Dioxide 22.9 L, Anion Gap 14.3 H, BUN 25 H, Creatinine 1.05, Est GFR (Non-Af Amer) 54 L, BUN/Creatinine Ratio 23.8 H, Random Glucose 141 H, Calcium 8.4 07/21/19 06:10: Sodium 147 H, Plasma Sodium 146 H, Potassium 3.3 L, Chloride 115 H, Carbon Dioxide 22.4 L, Anion Gap 12.9, BUN 22, Creatinine 1.05, Est GFR (Non- Af Amer) 54 L, BUN/Creatinine Ratio 21.0, Random Glucose 55 L D, Calcium 8.3 07/21/19 06:15: WBC 6.8 D, RBC 3.23 L, Hgb 9.8 L, Hct 31.3 L, MCV 96.9, MCH 30.3, MCHC 31.3 L, RDW 14.2 H, Plt Count 198, MPV 10.2, Immature Gran % (Auto) 0.60 H, Immature Gran # (Auto) 0.04 H, Neutrophils % 76.2 H, Lymphocytes % 13.5 L, Monocytes % 5.9, Eosinophils % 3.5 H, Basophils % 0.3, Nucleated RBC % 0.0, Neutrophils # 5.2, Lymphocytes # 0.92 L, Monocytes # 0.4, Eosinophils # 0.2, Absolute Basophils 0.0 07/22/19 07:10: WBC 6.0, RBC 3.26 L, Hgb 9.8 L, Hct 32.0 L, MCV 98.2, MCH 30.1, MCHC 30.6 L, RDW 14.4 H, Plt Count 187, MPV 9.8, Immature Gran % (Auto) 0.50 H, Immature Gran # (Auto) 0.03, Neutrophils % 77.2 H, Lymphocytes % 11.7 L, Monocytes % 6.5, Eosinophils % 3.8 H, Basophils % 0.3, Nucleated RBC % 0.0, Neutrophils # 4.6, Lymphocytes # 0.70 L, Monocytes # 0.4, Eosinophils # 0.2, Absolute Basophils 0.0 07/22/19 07:10: Sodium 147 H, Plasma Sodium 146 H, Potassium 4.2 D, Chloride 116 H, Carbon Dioxide 23.8 L, Anion Gap 11.4, BUN 24 H, Creatinine 1.01, Est GFR (Non-Af Amer) 57 L, BUN/Creatinine Ratio 23.8 H, Random Glucose 62 L, Calcium 8.0 Discharge Location: Home Disposition: Home Health Service Condition: Stable Discharge Activity: Activity as tolerated Discharge Diet: General/regular food Referrals: Dwaine Niño MD [Primary Care Provider] - Two Weeks Problem Oriented Discharge Instructions to Patient/Family: Clostridium Difficile FAQs - QUILES, Clostridium Difficile Infection, [id number] Additional Patient Instructions (free text): [facility] Home Health ongoing, please call and fax discharge information. Prescriptions (Any new or edited meds): Cephalexin Monohydrate [Keflex] 500 mg PO Q8H #4 cap Transmission Status: Pending to [place], [place] Vancomycin HCl 125 mg PO Q6H #28 cap Transmission Status: Pending to [place], [place] Complete Home Medications List: Complete Home Medication List: Diphenoxylate HCl/Atropine [Lomotil 2.5-0.025 mg Tablet] 2 ea PO QID PRN 12/14/14 Mycophenolate Mofetil [Cellcept] 1,000 mg PO BID 12/14/14 Tacrolimus [Prograf] 2 mg PO BID 12/14/14 Baclofen 10 mg PO Q6H PRN 01/24/15 Levothyroxine Sodium [Synthroid] 100 mcg PO DAILY 04/03/15 HYDROcodone/ACETAMINOPHEN [Lorcet 5-325 mg Tablet] 1 ea PO Q6H PRN #40 tab 04/11/15 Multivitamins [Multivitamin Shawn] 1 cap PO DAILY #30 cap 04/11/15 atorvastatin 10 mg tablet 10 mg PO DAILY 03/19/18 aspirin 325 mg tablet,delayed release 325 mg PO DAILY 07/07/18 calcium phosphate-vitamin D3 250 mg calcium-500 unit chewable tablet 1 tab PO BID tab 07/07/18 cholecalciferol (vitamin D3) 2,000 unit capsule 2,000 unit PO DAILY 07/07/18 cranberry concentrate-ascorbic acid 140 mg-100 mg capsule 4,200 mg PO DAILY cap 07/07/18 ondansetron HCl 4 mg tablet 4 mg PO QID PRN 07/07/18 amiodarone 200 mg tablet 100 mg PO DAILY tab 10/26/18 fesoterodine 8 mg tablet,extended release 24 hr 8 mg PO DAILY 10/26/18 metoprolol tartrate 25 mg tablet 25 mg PO BID tab 10/26/18 aripiprazole 10 mg tablet 10 mg PO DAILY #30 tab 05/30/19 mirtazapine 30 mg tablet 30 mg PO HS #30 tab 05/30/19 Acetaminophen [Tylenol] 1 - 2 tab PO Q6H PRN 07/18/19 Alprazolam 1 mg PO QID PRN 07/18/19 Insulin Detemir [Levemir] 28 unit SQ HS 07/18/19 Insulin Regular, Human [Novolin R] See Protocol SC AC 07/18/19 Peppermint Oil [Ibgard] 90 mg PO PRN PRN 07/18/19 Saccharomyces Boulardii [Florastor] 250 mg PO BID 07/18/19 Sertraline HCl [Zoloft] 150 mg PO HS 07/18/19 Cephalexin Monohydrate [Keflex] 500 mg PO Q8H #4 cap 07/22/19 Vancomycin HCl 125 mg PO Q6H #28 cap 07/22/19
[2019-07-22 12:13] VITALS: BP 142/69
== END 2019-07-22 12:41 | disposition home health service (06) | DRG 372 ==
LOC: ER 11:05 → MS 11:05 → OBSVTOIN 13:31 → MS 14:19
PROVIDERS: ADMIT Family Medicine; ATTEND Family Medicine
DX: A04.72 Enterocolitis due to Clostridium difficile, not specified as recurrent; N17.9 Acute kidney failure, unspecified; E86.0 Dehydration; B96.1 Klebsiella pneumoniae [K. pneumoniae] as the cause of diseases classified elsewhere; T86.19 Other complication of kidney transplant; R41.82 Altered mental status, unspecified; E03.9 Hypothyroidism, unspecified; N39.0 Urinary tract infection, site not specified; Z94.0 Kidney transplant status; I10 Essential (primary) hypertension
CPT/HCPCS: 36415; 80048; 80053; 81001; 82705; 83605; 83631; 85025; 87040; 87045; 87046; 87077; 87081; 87086; 87186; 87493; 97110; 97116; 97161; 99285

== ENCOUNTER 2020-10-26 10:47 | Inpatient (IN) ==
--- NOTE | 2020-10-26 11:33 | ERNOTE ---
Medical Problem HPI - Narrative Date of Service: 10/26/20 - General Chief Complaint: General Assessment Time Seen by Provider: 10/26/20 11:06 Source: patient, family, EMS Exam Limitations: no limitations - Immun/Allergies/Home Medications Immunizations: IMMUNIZATION HX Immunizations Up to Date Yes History of Influenza Vaccine Yes Hx Pneumococcal Vaccination Yes Allergies/Adverse Reactions: Allergies morphine Allergy (Intermediate, Verified 10/26/20 10:52) Itching nortriptyline Allergy (Mild, Verified 10/26/20 10:52) RASH sulfamethoxazole [From Bactrim] Adverse Reaction (Mild, Verified 10/26/20 10:52) severe diarrhea trimethoprim [From Bactrim] Adverse Reaction (Mild, Verified 10/26/20 10:52) severe diarrhea Home Medications: HOME MEDICATIONS Diphenoxylate HCl/Atropine [Lomotil 2.5-0.025 mg Tablet] 2 ea PO QID PRN 12/14/14 [Last Taken 02/11/17 06:00] Mycophenolate Mofetil [Cellcept] 1,000 mg PO BID 12/14/14 [Last Taken 02/13/17 20:00] Tacrolimus [Prograf] 2 mg PO BID 12/14/14 [Last Taken 02/13/17 20:00] Baclofen 10 mg PO QID PRN 01/24/15 [Last Taken 02/13/17 20:00] Levothyroxine Sodium [Synthroid] 100 mcg PO DAILY 04/03/15 [Last Taken 02/13/17 08:00] HYDROcodone/ACETAMINOPHEN [Lorcet 5-325 mg Tablet] 1 ea PO Q6H PRN #40 tab 04/11/15 [Last Taken 02/13/17 20:00] Multivitamins [Multivitamin Shawn] 1 cap PO DAILY #30 cap 04/11/15 [Last Taken 02/13/17 08:00] aspirin 325 mg tablet,delayed release 325 mg PO DAILY 07/07/18 [Last Taken Unknown] calcium phosphate 250 mg-vit D3 12.5 mcg (500 unit) chewable tablet 1 tab PO BID tab 07/07/18 [Last Taken Unknown] cholecalciferol (vitamin D3) 50 mcg (2,000 unit) capsule 2,000 unit PO DAILY 07/07/18 [Last Taken Unknown] cranberry concentrate-ascorbic acid 140 mg-100 mg capsule 4,200 mg PO DAILY cap 07/07/18 [Last Taken Unknown] ondansetron HCl 4 mg tablet 4 mg PO QID PRN 07/07/18 [Last Taken Unknown] fesoterodine 8 mg tablet,extended release 24 hr 8 mg PO DAILY 10/26/18 [Last Taken Unknown] metoprolol tartrate 25 mg tablet 25 mg PO BID tab 10/26/18 [Last Taken Unknown] Acetaminophen [Tylenol] 1 - 2 tab PO Q6H PRN 07/18/19 [Last Taken Unknown] Insulin Detemir [Levemir] 28 unit SQ HS 07/18/19 [Last Taken Unknown] Insulin Regular, Human [Novolin R] See Protocol SC AC 07/18/19 [Last Taken Unknown] Peppermint Oil [Ibgard] 90 mg PO PRN PRN 07/18/19 [Last Taken Unknown] Saccharomyces Boulardii [Florastor] 250 mg PO BID 07/18/19 [Last Taken Unknown] alprazolam 1 mg tablet 1 mg PO TID PRN #90 tab 07/13/20 [Last Taken Unknown] aripiprazole 10 mg tablet 10 mg PO DAILY #30 tab 07/13/20 [Last Taken Unknown] mirtazapine 30 mg tablet 30 mg PO HS #30 tab 07/13/20 [Last Taken Unknown] sertraline 100 mg tablet 150 mg PO HS #45 tab 07/13/20 [Last Taken Unknown] Amiodarone HCl [Pacerone] 100 mg PO DAILY 10/26/20 [Last Taken Unknown] Cefuroxime Axetil [Cefuroxime] 250 mg PO BID 10/26/20 [Last Taken Unknown] - History of Present History Narrative: This patient is a 75-year-old female who arrived by ambulance. She has a few concerns. Shehas a history of what sounds like restrictive lung disease due to skeletal deformity. She has had a kidney transplant. She has a history of atrial fibrillation and is on a blood thinner. She has had diarrhea for the past 2 days. She has a history of C. difficile. She is currently being treated for a urinary tract infection and the diarrhea started with the antibiotics. Her oxygen levels been low. She uses 2 L of oxygen at night. It usually is up during the day, unless she falls asleep. There is more difficulty keeping the oxygen up today. She feels better wearing the oxygen. She has had no fever, cough or cold symptoms. She has no chest pain. Review of Systems - Narrative Narrative: She has felt like her balance has been off. She has a rash or dry skin of the left forearm. She has chronic neck pain. Her weight has been stable. All others are negative. - Review of Systems All Other Systems: All systems neg except as marked Medical History (Last Reviewed 10/26/20 @ 11:29 by Jignesh Haddad MD) Generalized anxiety disorder (Chronic) Major depression (Chronic) Influenza vaccine refused patient states she will receive at pharm on later date. 06/04/18 Melanoma Onset Date: 2018 left lower extremity Neck pain Onset Date: Unknown sees pain clinic IC Acute pain of both shoulders Anxiety Arthropathy Atrial fibrillation Bipolar disorder Chronic headaches Chronic kidney disease Chronic pain syndrome Colitis Depression Diabetes mellitus GERD (gastroesophageal reflux disease) Heart disease Hemodialysis patient Hypercholesteremia Hypertension Hypothyroidism Insomnia due to other mental disorder Irritable bowel syndrome with diarrhea Major depression, recurrent Neck pain, chronic Panic attacks Vitamin D deficiency Cancer of kidney Fracture closed, humerus Hernia of abdominal wall Hip fracture Humeral fracture Intestinal obstruction Small bowel obstruction Visual disturbance Surgical History: Surgical History (Last Reviewed 10/26/20 @ 11:29 by Jignesh Haddad MD) Status post surgical removal of malignant neoplasm of skin Onset Date: 2018 left lower leg-fort supply Cataract unknown date Fracture of anatomical neck of right humerus History of arthroscopy of knee unknown date History of cholecystectomy unknown date History of colonoscopy 2016 History of esophagogastroduodenoscopy 2016 History of hernia repair unknown date History of hysterectomy unknown date History of resection of small bowel 06/26/2009 History of retained foreign body fully removed 06/26/2009 History of revision of total hip arthroplasty Left December 2014 Right Apr 2015 History of tonsillectomy as a child Kidney replaced by transplant Kidney replaced by transplant 01/17/2009 Presence of surgically created AV shunt for hemodialysis 2005 S/p cadaver renal transplant 2008 Family History: Family History (Last Reviewed 10/26/20 @ 11:29 by Jignesh Haddad MD) Brother CVA (cerebral vascular accident) Heart disease Cancer Diabetes Dementia Father Heart disease Diabetes Alcohol abuse Sister Thyroid disease Irritable bowel syndrome (IBS) Mother Diabetes Daughter Diabetes Social History: (Last Reviewed 10/26/20 @ 11:29 by Jignesh Haddad MD) Social History: Marital status: lives independently: Yes household members: spouse current occupational status: retired Service: No Tobacco: Smoking Status: Never smoker Alcohol: alcohol intake: former Substance Use: substance use type: does not use Dietary Habits: caffeine: Yes caffeine comment: occasional Type: other Physical Exam - Physical Exam General Appearance: Present: alert, no apparent distress Head Exam: Present: normal inspection, no evidence of injury Eye Exam: Normal inspection: bilateral Ears, Nose, Throat: Present: normal ENT inspection Neck: Present: other - Severely kyphotic and turned to the left. Decreased range of motion. Respiratory: Present: no respiratory distress, no accessory muscle use, other - There was some crackles in the left base on initial auscultation. They resolved later. Cardiovascular/Chest: Present: regular rate, rhythm, no murmur Gastrointestinal/Abdominal: Present: normal bowel sounds, nontender, nondistended, soft, no organomegaly Pelvic Exam: Present: other - There is excoriation, per the nursing report. Back Exam: Present: normal inspection. Absent: normal range of motion Extremity Exam: Present: normal inspection, pedal edema Neurological Exam: Present: alert, oriented, normal mood/affect Skin Exam: Present: normal color, warm/dry Progress - Date and Time Seen: Date and Time: 10/26/20 13:31 She is having some hypoxia and possible CO2 retention from her restrictive lung disease. Her white count is elevated. It is likely due to the diarrhea or UTI. It seems that she should be hospitalized for treatment and further work-up. The patient is agreeable to staying here. Dr. Medrano agreed to observe the patient. - Results and Orders Patient's Lab Results:: I have reviewed the patient's lab results. Results and Orders: Laboratory Tests 10/26/20 10/26/20 10/26/20 11:20 11:29 11:45 WBC 16.3 H RBC 3.68 L Hgb 10.5 L Hct 35.1 L MCV 95.4 MCH 28.5 MCHC 29.9 L RDW 14.7 H Plt Count 123 L MPV 10.1 Neutrophils % (Manual) 80 H Band Neuts % (Manual) 4 H Lymphocytes % (Manual) 5 L Monocytes % (Manual) 4 Neutrophils # (Manual) 13.0 H Lymphocytes # (Manual) 0.8 L Monocytes # (Manual) 0.7 Atypic/Reactive Lymphs 7 H Platelet Estimate Normal RBC Morphology Normal pCO2 48.0 H pO2 76.3 L HCO3 24.7 Total CO2 26.2 H Base Excess -1.5 ABG pH 7.33 L ABG O2 Sat (Measured) 94.3 Sodium Plasma Sodium Potassium Chloride Carbon Dioxide Anion Gap BUN Creatinine Est GFR (Non-Af Amer) BUN/Creatinine Ratio Random Glucose Lactic Acid, Venous Calcium Calcium Adj for Albumin Total Bilirubin AST ALT Alkaline Phosphatase Total Protein Albumin Urine Color Yellow Urine Appearance Clear Urine pH 5.5 Ur Specific [place] 1.025 Urine Protein 15 H Urine Glucose (UA) Negative Urine Ketones Negative Urine Blood 50 H Urine Nitrate Positive H Urine Bilirubin Negative Urine Urobilinogen Normal Ur Leukocyte Esterase Negative Urine RBC 5-10 H Urine WBC 0-5 Ur Epithelial Cells Trace Urine Bacteria 2+ H Urine Culture Comments Culture to follow 10/26/20 10/26/20 11:45 11:45 WBC RBC Hgb Hct MCV MCH MCHC RDW Plt Count MPV Neutrophils % (Manual) Band Neuts % (Manual) Lymphocytes % (Manual) Monocytes % (Manual) Neutrophils # (Manual) Lymphocytes # (Manual) Monocytes # (Manual) Atypic/Reactive Lymphs Platelet Estimate RBC Morphology pCO2 pO2 HCO3 Total CO2 Base Excess ABG pH ABG O2 Sat (Measured) Sodium 143 H Plasma Sodium 144 H Potassium 3.8 Chloride 105 Carbon Dioxide 29.6 Anion Gap 12.2 BUN 26 H Creatinine 1.16 Est GFR (Non-Af Amer) 48 L D BUN/Creatinine Ratio 22.4 H Random Glucose 158 H Lactic Acid, Venous 0.8 Calcium 9.2 Calcium Adj for Albumin 9.5 Total Bilirubin 0.4 AST 19 ALT 35 Alkaline Phosphatase 150 Total Protein 6.6 Albumin 3.2 L Urine Color Urine Appearance Urine pH Ur Specific [place] Urine Protein Urine Glucose (UA) Urine Ketones Urine Blood Urine Nitrate Urine Bilirubin Urine Urobilinogen Ur Leukocyte Esterase Urine RBC Urine WBC Ur Epithelial Cells Urine Bacteria Urine Culture Comments - Vital Signs Patient's Vital Signs:: I have reviewed the patient's vital signs. Vital Signs: Vital Signs 10/26/20 10:48 Temperature 37.5 C Pulse Rate 79 Respiratory Rate 29 H Blood Pressure 133/55 O2 Sat by Pulse Oximetry 84 L - EKG EKG #1 EKG read: Interp. by me EKG Comments: Normal sinus rhythm Rate 78 Normal-appearing EKG Compared to an EKG dated 02/14/2017, she is no longer in atrial fibrillation and the rate is slower. - X-Ray X-Ray #1 X-Ray: chest Interpretation: Reviewed by me X-ray Comments: Chest Single View *~ Exam Date: 10/26/2020 11:39 Ordering Physician: Jignesh Haddad MD HISTORY: Hypoxia ONE VIEW CHEST Comparison: 07/31/2016 Technique: A single portable upright AP view of the chest were obtained. Findings: The cardiac silhouette is at least borderline in size. The mediastinum and hilum are with in normal limits. The left retrocardiac area is difficult to assess and consolidation cannot be totally excluded the left lung base. The remaining lung lord are clear. IMPRESSION: 1. BORDERLINE CARDIAC SIZE. 2. CONSOLIDATION CANNOT EXCLUDED THE LEFT LUNG BASE. FOLLOW-UP 2 VIEW CHEST RECOMMENDED. 3. REMAINING LUNG LORD ARE CLEAR. Electronically signed by Dwaine Hogan M.D.. X-Ray #2 X-Ray: chest Interpretation: Reviewed by me X-ray Comments: Chest PA & Lateral *~ Exam Date: 10/26/2020 12:20 Ordering Physician: Jignesh Haddad MD HISTORY: hypoxia 2 VIEW CHEST Comparison: 10/26/2020 Technique: Frontal and lateral views of the chest were obtained. Findings: The cardiac silhouette is borderline in size. The mediastinum and hilum are with in normal limits. There is elevation left hemidiaphragm with adjacent linear density/atelectasis. I do not see evidence for definable consolidation or effusion. The remaining lung lord are clear. IMPRESSION: 1. BORDERLINE CARDIAC SIZE. 2. ELEVATED LEFT HEMIDIAPHRAGM WITH ADJACENT LINEAR DENSITY/ ATELECTASIS. NO DEFINABLE CONSOLIDATION OR EFFUSION Electronically signed by Dwaine Hogan M.D.. - Progress/Reassessment Chief Complaint: General Assessment Departure Clinical Impression: Urinary tract infection, Diarrhea, Renal transplant recipient, Hypoxia, Obstructive lung disease - Departure Disposition: Still a patient Condition: Fair Referrals: Dwaine Niño MD [Primary Care Provider] -
[2020-10-26 12:02] LABS: Hematocrit 35.1 % (37.0-47.0); Hemoglobin 10.5 gm/dL (12.5-16.0); Mean Cell Volume 95.4 fl (78-100); Mean Corpuscular Hemoglobin 28.5 pg (27-31); Mean Corpuscular Hgb Conc 29.9 g/dl (32-36); Mean Platelet Volume 10.1 fl (8-12.5); Platelet Count 123 K/mm3 (150-450); Red Blood Count 3.68 M/mm3 (4.2-5.4); Red Cell Distribution Width 14.7 % (11.5-14.0); White Blood Count 16.3 K/mm3 (4.0-10.5)
[2020-10-26 12:04] LABS: Total Cells Counted 100
[2020-10-26 12:10] LABS: Urine Bilirubin Negative (NEGATIVE); Urine Blood 50 /ul (NEGATIVE); Urine Ketone Negative (NEGATIVE); Urine Protein 15 mg/dL (NEGATIVE); Urine Specific Gravity 1.025 SP.GR. (1.005-1.010); Urine Urobilinogen Normal (NORMAL); Urine pH 5.5 pH (5.0-7.0)
[2020-10-26 12:17] LABS: Albumin * 3.2 gm/dl (3.4-5.0); Anion Gap 12.2 mmol/L (6.8-13.8); BUN/Creatinine Ratio 22.4 (9.0-21.6); Bilirubin, Total 0.4 mg/dL (0.0-1.1); Ca. Corrected For Albumin 9.5 mg/dL (8.4-10.2); Calcium * 9.2 mg/dL (7.9-10.9); Carbon Dioxide 29.6 mmol/L (24-32.6); Potassium 3.8 mmol/L (3.4-4.6); Total Protein 6.6 gm/dL (6.2-8.2)
[2020-10-26 12:18] LABS: Urine Nitrite Positive (NEGATIVE)
[2020-10-26 12:19] LABS: Urine Appearance Clear (CLEAR); Urine Bacteria 2+; Urine Color Yellow; Urine WBC 0-5 /hpf (0-5)
[2020-10-26 12:29] LABS: Atypical (Reactive) Lymph 7 % (0-2); Band 4 % (0-2.0); Lymphocyte 5 % (20-51); Monocyte 4 % (0-9); Neutrophil 80 % (42-75); Platelet Estimate Normal (NORMAL); RBC Morphology Normal (NORMAL)
[2020-10-26] MEDS ORDERED: NORMAL SALINE 1,000 ML IV ONE (13:15)
[2020-10-26] MEDS ORDERED: ACETAMINOPHEN 325 MG TABLET PO PRN (15:51)
[2020-10-26] MEDS ORDERED: HYDROcodone/ACETAMINOPHEN 1 EACH TABLET PO PRN (15:59)
[2020-10-26] MEDS ORDERED: BACLOFEN 10 MG TABLET PO PRN (15:59)
[2020-10-26] MEDS ORDERED: ALPRAZolam 1 MG TABLET PO PRN (15:59)
[2020-10-26] MEDS ORDERED: ONDANSETRON HCL 4 MG TABLET PO PRN (15:59)
[2020-10-26] MEDS ORDERED: ARIPiprazole 10 MG TABLET PO SCH ×2 (16:00→21:00)
[2020-10-26] MEDS: LEVOTHYROXINE SODIUM 100 MCG TABLET PO SCH (16:21)
[2020-10-26] MEDS: ASPIRIN 325 MG TABLET.DR PO SCH (16:21)
[2020-10-26] MEDS: MULTIVITAMINS 1 CAP CAPSULE PO SCH (16:21)
[2020-10-26] MEDS: AMIODARONE HCL 200 MG TABLET PO SCH (16:21)
[2020-10-26] MEDS: ALBUTEROL SULFATE/IPRATROPIUM 3 ML NEBU IH SCH ×3 (16:55→22:36)
--- NOTE | 2020-10-26 17:34 | HP ---
Chief Complaint - Chief Complaint Date of Service: 10/26/20 Time of Service: 17:16 Chief Complaint: I have had shortness of breath, diarrhea, weakness, and a UTI over the past week. History of Present Illness: 75-year-old female with past medical history of atrial fibrillation, type 2 diabetes, hypertension, CKD, kidney transplant, osteoarthritis, hyperlipidemia, anxiety disorder, depression, obstructive lung disease, SARAH, was evaluated in the ER for malaise weakness, dehydration, intractable diarrhea, and UTI earlier this morning. Patient reports over the past few days she has been acutely ill due to growing increasingly weak secondary to ongoing diarrhea. Patient was recently diagnosed with a UTI and was started on oral antibiotics but shortly after starting the medication she developed profuse diarrhea, she reports having 5-6 watery stools per day for several days. Because the patient to go increasingly weak and unable to carry out her activities of daily living. She denies any fever chills but says she has been having difficulty breathing and a higher oxygen requirement. The patient has a restrictive lung disease due to a skeletal deformity which makes breathing difficult. She reports using oxygen at night. The patient has not completed her oral antibiotics but we will discontinue them and switch him to another to treat her UTI as well as her C. difficile which was confirmed on stool culture. During physical exam she was also discovered to have cellulitis of the right lower extremity, she reports this redness and tenderness started several days ago but she has not been seen by a doctor for it. Medical History (Last Reviewed 10/26/20 @ 15:36 by Kandice Solis RN) Generalized anxiety disorder (Chronic) Major depression (Chronic) Influenza vaccine refused patient states she will receive at pharm on later date. 06/04/18 Melanoma Onset Date: 2018 left lower extremity Neck pain Onset Date: Unknown sees pain clinic IC Acute pain of both shoulders Anxiety Arthropathy Atrial fibrillation Bipolar disorder Chronic headaches Chronic kidney disease Chronic pain syndrome Colitis Depression Diabetes mellitus GERD (gastroesophageal reflux disease) Heart disease Hemodialysis patient Hypercholesteremia Hypertension Hypothyroidism Insomnia due to other mental disorder Irritable bowel syndrome with diarrhea Major depression, recurrent Neck pain, chronic Panic attacks Vitamin D deficiency Cancer of kidney Fracture closed, humerus Hernia of abdominal wall Hip fracture Humeral fracture Intestinal obstruction Small bowel obstruction Visual disturbance Surgical History: Surgical History (Last Reviewed 10/26/20 @ 15:37 by Kandice Solis RN) Status post surgical removal of malignant neoplasm of skin Onset Date: 2018 left lower leg-colbert Cataract unknown date Fracture of anatomical neck of right humerus History of arthroscopy of knee unknown date History of cholecystectomy unknown date History of colonoscopy 2016 History of esophagogastroduodenoscopy 2016 History of hernia repair unknown date History of hysterectomy unknown date History of resection of small bowel 06/26/2009 History of retained foreign body fully removed 06/26/2009 History of revision of total hip arthroplasty Left December 2014 Right Apr 2015 History of tonsillectomy as a child Kidney replaced by transplant Kidney replaced by transplant 01/17/2009 Presence of surgically created AV shunt for hemodialysis 2005 S/p cadaver renal transplant 2008 Family History: Family History (Last Reviewed 10/26/20 @ 15:38 by Kandice Solis RN) Brother CVA (cerebral vascular accident) Heart disease Cancer Diabetes Dementia Father Heart disease Diabetes Alcohol abuse Sister Thyroid disease Irritable bowel syndrome (IBS) Mother Diabetes Daughter Diabetes Social History: (Last Reviewed 10/26/20 @ 15:39 by Kandice Solis RN) Social History: longterm: No Marital status: lives independently: Yes household members: spouse current occupational status: retired Highest level of school completed/degree received: high school graduate Service: No Tobacco: Smoking Status: Never smoker Alcohol: alcohol intake: never Substance Use: substance use type: does not use Dietary Habits: caffeine: Yes caffeine comment: occasional Type: other Peds Patient Hx - Developmental: No Pertinent Hx Peds Patient Hx - Medical: No Pertinent Hx Peds Patient Hx - Cardiac/Respiratory: No Pertinent Hx Peds Patient Hx - Surgical: No Surgical History Patient History - Cancer: No Hx of Cancer Review Of Systems (GEN) - Review of Systems Generalized/Overall Review: Present: Weakness, Malaise EENTM: Present: No Symptoms Reported Respiratory: Present: Shortness of Breath Cardiac: Present: No Symptoms Reported Abdominal: Present: Diarrhea Genitourinary: Present: Burning, Frequency Musculoskeletal: Present: No Symptoms Reported Neurological: Present: No Symptoms Reported Skin: Present: Change in Color - Erythema of right lower extremity Endocrine: Present: No Symptoms Reported Immunizations: IMMUNIZATION HX Immunizations Up to Date Yes History of Influenza Vaccine Yes Hx Pneumococcal Vaccination Yes Allergies/Adverse Reactions: Allergies Allergy/AdvReac Type Severity Reaction Status Date / Time morphine Allergy Intermediate Itching Verified 10/26/20 15:39 nortriptyline Allergy Mild RASH Verified 10/26/20 15:39 sulfamethoxazole AdvReac Mild severe Verified 10/26/20 15:39 [From Bactrim] diarrhea trimethoprim [From Bactrim] AdvReac Mild severe Verified 10/26/20 15:39 diarrhea Home Medications: HOME MEDICATIONS Diphenoxylate HCl/Atropine [Lomotil 2.5-0.025 mg Tablet] 2 ea PO QID PRN [Last Taken 02/11/17 06:00] Mycophenolate Mofetil [Cellcept] 1,000 mg PO BID 12/14/14 [Last Taken 02/13/17 20:00] Tacrolimus [Prograf] 2 mg PO BID 12/14/14 [Last Taken 02/13/17 20:00] Baclofen 10 mg PO QID PRN 01/24/15 [Last Taken 02/13/17 20:00] Levothyroxine Sodium [Synthroid] 100 mcg PO DAILY 04/03/15 [Last Taken 02/13/17 08:00] HYDROcodone/ACETAMINOPHEN [Lorcet 5-325 mg Tablet] 1 ea PO Q6H PRN #40 tab 04/11/15 [Last Taken 02/13/17 20:00] Multivitamins [Multivitamin Shawn] 1 cap PO DAILY #30 cap 04/11/15 [Last Taken 02/13/17 08:00] aspirin 325 mg tablet,delayed release 325 mg PO DAILY 07/07/18 [Last Taken Unknown] cholecalciferol (vitamin D3) 50 mcg (2,000 unit) capsule 2,000 unit PO DAILY 07/07/18 [Last Taken Unknown] cranberry concentrate-ascorbic acid 140 mg-100 mg capsule 4,200 mg PO DAILY cap 07/07/18 [Last Taken Unknown] ondansetron HCl 4 mg tablet 4 mg PO QID PRN 07/07/18 [Last Taken Unknown] metoprolol tartrate 25 mg tablet 25 mg PO BID tab 10/26/18 [Last Taken Unknown] Acetaminophen [Tylenol] 1 - 2 tab PO Q6H PRN 07/18/19 [Last Taken Unknown] Insulin Detemir [Levemir] 28 unit SQ HS 07/18/19 [Last Taken Unknown] Insulin Regular, Human [Novolin R] See Protocol SC AC 07/18/19 [Last Taken Unknown] Saccharomyces Boulardii [Florastor] 250 mg PO BID 07/18/19 [Last Taken Unknown] alprazolam 1 mg tablet 1 mg PO TID PRN #90 tab 07/13/20 [Last Taken Unknown] aripiprazole 10 mg tablet 10 mg PO DAILY #30 tab 07/13/20 [Last Taken Unknown] mirtazapine 30 mg tablet 30 mg PO HS #30 tab 07/13/20 [Last Taken Unknown] sertraline 100 mg tablet 150 mg PO HS #45 tab 07/13/20 [Last Taken Unknown] Amiodarone HCl [Pacerone] 100 mg PO DAILY 10/26/20 [Last Taken Unknown] Calcium Citrate/Vitamin D3 [Calcium Citrate - Vit D Tablet] 1 ea PO BID 10/26/20 [Last Taken Unknown] Cefuroxime Axetil [Cefuroxime] 250 mg PO BID 10/26/20 [Last Taken Unknown] Exam - Exam Vital Signs: Vital Signs - Last Taken Temp 36.6 C 10/26/20 15:49 Pulse 64 10/26/20 17:01 Resp 28 H 10/26/20 17:01 BP 130/54 10/26/20 15:49 Pulse Ox 96 10/26/20 16:55 Constitutional: Present: Alert, Oriented x3, Cooperative, Well developed, No distress, Elderly ENT Exam: Present: normal ENT inspection, hearing grossly normal Eye Exam: bilateral eye: normal inspection, PERRL, EOMI Neck: Present: non-tender, full range of motion, supple, normal inspection, trachea midline Back Exam: Present: no CVA tenderness, no vertebral tenderness, other - Loss of cervical lordosis and deformity of thorax Breasts: Present: Exam deferred Respiratory: Present: chest non-tender, no respiratory distress, no accessory muscle use, decreased breath sounds Cardiovascular/Chest: Present: normal peripheral pulses, regular rate, rhythm, no chest tenderness, no edema, no gallop, no JVD, no murmur Peripheral Pulses: dorsalis-pedis (R): 2+, dorsalis-pedis (L): 2+ Abdomen: Present: Normal bowel sounds, soft, nontender, nondistended, no rebound tenderness, no hepatospenomegaly, no masses /Rectal: Present: Exam deferred Extremity: Present: other - Circumferential erythema warmth and tenderness of right lower extremity. Externally rotated deformity of lower extremities Skin Exam: Present: other - Erythema of right lower extremity Lymphatic: Present: no adenopathy Neurologic: Present: central station operator II-XII nml as tested, no motor/sensory deficits, alert, normal mood/affect, oriented x 3 Appearance: Present: appropriate appearance, appropriate insight, neat, no memory impairment Eye contact: Present: cooperative, good eye contact, normal speech Thoughts: Present: normal thought pattern, no apparent hallucination Diagnostic Studies: Abnormal Lab Results 10/26/20 10/26/20 10/26/20 Range/Units 11:20 11:29 11:45 WBC 16.3 H (4.0-10.5) K/mm3 RBC 3.68 L (4.2-5.4) M/mm3 Hgb 10.5 L (12.5-16.0) gm/dL Hct 35.1 L (37.0-47.0) % MCHC 29.9 L (32-36) g/dl RDW 14.7 H (11.5-14.0) % Plt Count 123 L (150-450) K/mm3 Neutrophils % (Manual) 80 H (42-75) % Band Neuts % (Manual) 4 H (0-2.0) % Lymphocytes % (Manual) 5 L (20-51) % Neutrophils # (Manual) 13.0 H (1.3-6.0) K/mm3 Lymphocytes # (Manual) 0.8 L (1.5-3.5) k/mm3 Atypic/Reactive Lymphs 7 H (0-2) % pCO2 48.0 H (32.0-45.0) mmHg pO2 76.3 L (83.0-108.0) mmHg Total CO2 26.2 H (19.0-24.0) mmol/L ABG pH 7.33 L (7.35-7.45) Sodium (132-142) mmol/L Plasma Sodium (130-142) mmol/L BUN (3-23) mg/dL Est GFR (Non-Af Amer) (60-130) mL/min BUN/Creatinine Ratio (9.0-21.6) Random Glucose (70-110) mg/dL Albumin (3.4-5.0) gm/dl Urine Protein 15 H (NEGATIVE) mg/dL Urine Blood 50 H (NEGATIVE) /ul Urine Nitrate Positive H (NEGATIVE) Urine RBC 5-10 H (0-5) /hpf Urine Bacteria 2+ H (NONE) Stl C.difficile Tox A&B (Negative) 10/26/20 10/26/20 Range/Units 11:45 14:00 WBC (4.0-10.5) K/mm3 RBC (4.2-5.4) M/mm3 Hgb (12.5-16.0) gm/dL Hct (37.0-47.0) % MCHC (32-36) g/dl RDW (11.5-14.0) % Plt Count (150-450) K/mm3 Neutrophils % (Manual) (42-75) % Band Neuts % (Manual) (0-2.0) % Lymphocytes % (Manual) (20-51) % Neutrophils # (Manual) (1.3-6.0) K/mm3 Lymphocytes # (Manual) (1.5-3.5) k/mm3 Atypic/Reactive Lymphs (0-2) % pCO2 (32.0-45.0) mmHg pO2 (83.0-108.0) mmHg Total CO2 (19.0-24.0) mmol/L ABG pH (7.35-7.45) Sodium 143 H (132-142) mmol/L Plasma Sodium 144 H (130-142) mmol/L BUN 26 H (3-23) mg/dL Est GFR (Non-Af Amer) 48 L D (60-130) mL/min BUN/Creatinine Ratio 22.4 H (9.0-21.6) Random Glucose 158 H (70-110) mg/dL Albumin 3.2 L (3.4-5.0) gm/dl Urine Protein (NEGATIVE) mg/dL Urine Blood (NEGATIVE) /ul Urine Nitrate (NEGATIVE) Urine RBC (0-5) /hpf Urine Bacteria (NONE) Stl C.difficile Tox A&B Positive H (Negative) Laboratory Results WBC 16.3 K/mm3 (4.0-10.5) H 10/26/20 11:45 RBC 3.68 M/mm3 (4.2-5.4) L 10/26/20 11:45 Hgb 10.5 gm/dL (12.5-16.0) L 10/26/20 11:45 Hct 35.1 % (37.0-47.0) L 10/26/20 11:45 MCV 95.4 fl (78-100) 10/26/20 11:45 MCH 28.5 pg (27-31) 10/26/20 11:45 MCHC 29.9 g/dl (32-36) L 10/26/20 11:45 RDW 14.7 % (11.5-14.0) H 10/26/20 11:45 Plt Count 123 K/mm3 (150-450) L 10/26/20 11:45 MPV 10.1 fl (8-12.5) 10/26/20 11:45 Neutrophils % (Manual) 80 % (42-75) H 10/26/20 11:45 Band Neuts % (Manual) 4 % (0-2.0) H 10/26/20 11:45 Lymphocytes % (Manual) 5 % (20-51) L 10/26/20 11:45 Monocytes % (Manual) 4 % (0-9) 10/26/20 11:45 Neutrophils # (Manual) 13.0 K/mm3 (1.3-6.0) H 10/26/20 11:45 Lymphocytes # (Manual) 0.8 k/mm3 (1.5-3.5) L 10/26/20 11:45 Monocytes # (Manual) 0.7 k/mm3 (0.0-1.0) 10/26/20 11:45 Atypic/Reactive Lymphs 7 % (0-2) H 10/26/20 11:45 Platelet Estimate Normal (NORMAL) 10/26/20 11:45 RBC Morphology Normal (NORMAL) 10/26/20 11:45 pCO2 48.0 mmHg (32.0-45.0) H 10/26/20 11:20 pO2 76.3 mmHg (83.0-108.0) L 10/26/20 11:20 HCO3 24.7 mmol/L (21.0-28.0) 10/26/20 11:20 Total CO2 26.2 mmol/L (19.0-24.0) H 10/26/20 11:20 Base Excess -1.5 mmol/L (-2.0-3.0) 10/26/20 11:20 ABG pH 7.33 (7.35-7.45) L 10/26/20 11:20 ABG O2 Sat (Measured) 94.3 % (94.0-98.0) 10/26/20 11:20 Sodium 143 mmol/L (132-142) H 10/26/20 11:45 Plasma Sodium 144 mmol/L (130-142) H 10/26/20 11:45 Potassium 3.8 mmol/L (3.4-4.6) 10/26/20 11:45 Chloride 105 mmol/L (97-106) 10/26/20 11:45 Carbon Dioxide 29.6 mmol/L (24-32.6) 10/26/20 11:45 Anion Gap 12.2 mmol/L (6.8-13.8) 10/26/20 11:45 BUN 26 mg/dL (3-23) H 10/26/20 11:45 Creatinine 1.16 mg/dL (0.4-1.4) 10/26/20 11:45 Est GFR (Non-Af Amer) 48 mL/min (60-130) L D 10/26/20 11:45 BUN/Creatinine Ratio 22.4 (9.0-21.6) H 10/26/20 11:45 Random Glucose 158 mg/dL (70-110) H 10/26/20 11:45 Lactic Acid, Venous 0.8 mmol/L (0.4-2.0) 10/26/20 11:45 Calcium 9.2 mg/dL (7.9-10.9) 10/26/20 11:45 Calcium Adj for Albumin 9.5 mg/dL (8.4-10.2) 10/26/20 11:45 Total Bilirubin 0.4 mg/dL (0.0-1.1) 10/26/20 11:45 AST 19 U/L (0-48) 10/26/20 11:45 ALT 35 U/L (19-67) 10/26/20 11:45 Alkaline Phosphatase 150 U/L (50-170) 10/26/20 11:45 Total Protein 6.6 gm/dL (6.2-8.2) 10/26/20 11:45 Albumin 3.2 gm/dl (3.4-5.0) L 10/26/20 11:45 Urine Color Yellow 10/26/20 11:29 Urine Appearance Clear (CLEAR) 10/26/20 11:29 Urine pH 5.5 pH (5.0-7.0) 10/26/20 11:29 Ur Specific [place] 1.025 SP.GR. (1.005-1.010) 10/26/20 11:29 Urine Protein 15 mg/dL (NEGATIVE) H 10/26/20 11:29 Urine Glucose (UA) Negative mg/dL (NEGATIVE) 10/26/20 11: Urine Ketones Negative mg/dL (NEGATIVE) 10/26/20 11:29 Urine Blood 50 /ul (NEGATIVE) H 10/26/20 11: Urine Nitrate Positive (NEGATIVE) H 10/26/20 11: Urine Bilirubin Negative mg/dl (NEGATIVE) 10/26/20 11: Urine Urobilinogen Normal EU/dl (NORMAL) 10/26/20 11:29 Ur Leukocyte Esterase Negative /ul (NEGATIVE) 10/26/20 11: Urine RBC 5-10 /hpf (0-5) H 10/26/20 11:29 Urine WBC 0-5 /hpf (0-5) 10/26/20 11:29 Ur Epithelial Cells Trace /hpf (0-5) 10/26/20 11:29 Urine Bacteria 2+ (NONE) H 10/26/20 11:29 Urine Culture Comments Culture to follow 10/26/20 11:29 Stl C.difficile Tox A&B Positive (Negative) H 10/26/20 14:00 SARS-CoV-2 (PCR) Not detected (NotDetected) 10/26/20 13:27 Assessment/Plan - Narrative Narrative: Patient was evaluated and medical chart was reviewed and decision to admit to [facility] for diagnosis and treatment of C. difficile colitis, UTI, dehydration, and cellulitis of the right lower extremity was made. The patient is resting comfortably on the [facility] floor, she has been started on antibiotics to treat her C. difficile as well IV hydration. We will treat her with oral vancomycin which is a first choice for C. difficile colitis but will also add ceftriaxone to treat her UTI as well as her cellulitis. Repeat labs have been ordered for tomorrow morning. The patient will also be treated with breathing treatment around the clock to address her difficulty breathing and tomorrow morning we will attempt to wean her off of the oxygen. Urine culture as well as stool culture was sent to lab for susceptibility report. We will reevaluate her in the morning. - Assessment/Plan (1) Colitis, Clostridium difficile Problem: Acute (2) Urinary tract infection Problem: Acute Qualifiers: (3) Diarrhea Problem: Acute Qualifiers: (4) Acute kidney injury Problem: Resolved (5) Obstructive lung disease Problem: Acute (6) Generalized anxiety disorder Problem: Chronic (7) Major depression Problem: Chronic Qualifiers: (8) SARAH (obstructive sleep apnea) Problem: Chronic (9) Atrial fibrillation Problem: Chronic (10) Dehydration with hypernatremia Problem: Acute (11) Cellulitis of right lower extremity Problem: Acute (12) H/O kidney transplant Problem: Acute
[2020-10-26] MEDS: INSULIN REGULAR, HUMAN 100 UNITS/ML VIAL SC SCH (17:37)
[2020-10-26] MEDS: VANCOMYCIN HCL 125 MG CAPSULE PO SCH ×2 (17:38→21:15)
[2020-10-26] MEDS ORDERED: NORMAL SALINE 1,000 ML IV PRN (19:50)
[2020-10-26] MEDS: CALCIUM CARBONATE/VITAMIN D3 1 TAB TABLET PO SCH (20:58)
[2020-10-26] MEDS: MYCOPHENOLATE MOFETIL 500 MG TABLET PO SCH (20:59)
[2020-10-26] MEDS: SACCHAROMYCES BOULARDII 250 MG CAPSULE PO SCH (20:59)
[2020-10-26] MEDS ORDERED: CEFUROXIME AXETIL 250 MG TABLET PO SCH (21:00)
[2020-10-26] MEDS ORDERED: SERTRALINE HCL 50 MG TABLET PO SCH (21:00)
[2020-10-26] MEDS: METOPROLOL TARTRATE 25 MG TABLET PO SCH (21:00)
[2020-10-26] MEDS ORDERED: INSULIN GLARGINE,HUM.REC.ANLOG 100 UNITS/ML VIAL SC SCH (21:00)
[2020-10-26] MEDS ORDERED: MIRTAZAPINE 15 MG TABLET PO SCH (21:00)
[2020-10-26] MEDS: TACROLIMUS ANHYDROUS 0.5 MG CAPSULE PO SCH (21:02)
[2020-10-27] MEDS: ALBUTEROL SULFATE/IPRATROPIUM 3 ML NEBU IH SCH ×6 (03:13→22:28)
[2020-10-27] MEDS: VANCOMYCIN HCL 125 MG CAPSULE PO SCH ×4 (03:38→21:10)
[2020-10-27] MEDS: LEVOTHYROXINE SODIUM 100 MCG TABLET PO SCH (06:38)
[2020-10-27] MEDS: INSULIN REGULAR, HUMAN 100 UNITS/ML VIAL SC SCH ×3 (07:21→16:36)
[2020-10-27 07:23] LABS: Hemoglobin 9.2 gm/dL (12.5-16.0); Mean Cell Volume 97.2 fl (78-100); Mean Corpuscular Hemoglobin 28.8 pg (27-31); Mean Corpuscular Hgb Conc 29.7 g/dl (32-36); Mean Platelet Volume 10.5 fl (8-12.5); Neutrophil # 7.1 K/mm3 (1.3-6.0); Neutrophil % 79.6 % (42-75.0); Platelet Count 104 K/mm3 (150-450); Red Blood Count 3.19 M/mm3 (4.2-5.4); Red Cell Distribution Width 14.9 % (11.5-14.0); White Blood Count 8.9 K/mm3 (4.0-10.5)
[2020-10-27 07:39] LABS: Albumin * 2.4 gm/dl (3.4-5.0); Anion Gap 8.5 mmol/L (6.8-13.8); BUN/Creatinine Ratio 22.9 (9.0-21.6); Bilirubin, Total 0.2 mg/dL (0.0-1.1); Ca. Corrected For Albumin 9.7 mg/dL (8.4-10.2); Calcium * 8.7 mg/dL (7.9-10.9); Carbon Dioxide 28.1 mmol/L (24-32.6); Potassium 3.6 mmol/L (3.4-4.6); Total Protein 5.3 gm/dL (6.2-8.2)
[2020-10-27] MEDS: SACCHAROMYCES BOULARDII 250 MG CAPSULE PO SCH ×2 (08:25→21:03)
[2020-10-27] MEDS: ASPIRIN 325 MG TABLET.DR PO SCH (08:25)
[2020-10-27] MEDS: MYCOPHENOLATE MOFETIL 500 MG TABLET PO SCH ×2 (08:26→21:02)
[2020-10-27] MEDS: MULTIVITAMINS 1 CAP CAPSULE PO SCH (08:26)
[2020-10-27] MEDS: TACROLIMUS ANHYDROUS 0.5 MG CAPSULE PO SCH ×2 (08:26→21:04)
[2020-10-27] MEDS: CHOLECALCIFEROL 1,000 UNIT CAPSULE PO SCH (08:26)
[2020-10-27] MEDS: METOPROLOL TARTRATE 25 MG TABLET PO SCH ×2 (08:27→21:14)
[2020-10-27] MEDS: CALCIUM CARBONATE/VITAMIN D3 1 TAB TABLET PO SCH ×2 (08:27→21:01)
[2020-10-27] MEDS: AMIODARONE HCL 200 MG TABLET PO SCH (08:35)
--- NOTE | 2020-10-27 12:10 | PN ---
Subjective - Date and Time Seen Date: 10/27/20 Time: 12:02 Subjective Narrative: I feel somewhat better, but still have diarrhea Objective Objective Narrative: 75-year-old female admitted for dehydration secondary to diarrhea caused by C. difficile colitis, UTI, right lower extremity cellulitis, JULIANNA on CKD, and generalized weakness was evaluated at bedside this morning was found to be afebrile and in no acute distress. Patient has shown some clinical improvement since arriving at [facility], this morning she reports feeling better and stronger. Physical therapy has been ordered and start her first session this morning which she tolerated without any issues. Labs revealed resolution of her leukocytosis and left shift and improvement in her renal function. Her breathing has also improved, and she is saturating adequately on room air and no longer requires oxygen. These are all good signs however the patient continues to have diarrhea and residual weakness, therefore we will keep her for an additional day for intrahospital treatment with dual antibiotics to address the C. difficile, UTI, and cellulitis and reevaluate her in the morning. - Review of Systems Generalized/Overall Review: Reports: Weakness EENTM: Reports: No Symptoms Reported Respiratory: Reports: No Symptoms Reported Cardiac: Reports: No Symptoms Reported Abdominal: Reports: Diarrhea Genitourinary Symptoms: Reports: Burning Musculoskeletal Complaints: Reports: No Symptoms Reported Neurological: Reports: No Symptoms Reported Skin: Reports: No Symptoms Reported Endocrine: Reports: No Symptoms Reported - Vitals Vitals: Last Vital Signs Temp 36.2 C 10/27/20 09:48 Pulse 68 10/27/20 10:14 Resp 24 H 10/27/20 10:14 BP 140/39 10/27/20 09:48 Pulse Ox 90 L 10/27/20 10:06 - Abnormal Lab Findings Abnormal Lab Findings: Abnormal Lab Results 10/26/20 10/26/20 10/26/20 Range/Units 11:29 11:45 11:45 WBC 16.3 H (4.0-10.5) K/mm3 RBC 3.68 L (4.2-5.4) M/mm3 Hgb 10.5 L (12.5-16.0) gm/dL Hct 35.1 L (37.0-47.0) % MCHC 29.9 L (32-36) g/dl RDW 14.7 H (11.5-14.0) % Plt Count 123 L (150-450) K/mm3 Immature Gran # (Auto) (0.000-0.0310) K/mm3 Neutrophils % (42-75.0) % Neutrophils % (Manual) 80 H (42-75) % Band Neuts % (Manual) 4 H (0-2.0) % Lymphocytes % (20-51) % Lymphocytes % (Manual) 5 L (20-51) % Monocytes % (0.0-9) % Neutrophils # (1.3-6.0) K/mm3 Neutrophils # (Manual) 13.0 H (1.3-6.0) K/mm3 Lymphocytes # (1.5-3.5) k/mm3 Lymphocytes # (Manual) 0.8 L (1.5-3.5) k/mm3 Atypic/Reactive Lymphs 7 H (0-2) % Sodium 143 H (132-142) mmol/L Plasma Sodium 144 H (130-142) mmol/L Chloride (97-106) mmol/L BUN 26 H (3-23) mg/dL Est GFR (Non-Af Amer) 48 L D (60-130) mL/min BUN/Creatinine Ratio 22.4 H (9.0-21.6) Random Glucose 158 H (70-110) mg/dL Total Protein (6.2-8.2) gm/dL Albumin 3.2 L (3.4-5.0) gm/dl Urine Protein 15 H (NEGATIVE) mg/dL Urine Blood 50 H (NEGATIVE) /ul Urine Nitrate Positive H (NEGATIVE) Urine RBC 5-10 H (0-5) /hpf Urine Bacteria 2+ H (NONE) Stl C.difficile Tox A&B (Negative) 10/26/20 10/27/20 10/27/20 Range/Units 14:00 07:15 07:15 WBC (4.0-10.5) K/mm3 RBC 3.19 L (4.2-5.4) M/mm3 Hgb 9.2 L (12.5-16.0) gm/dL Hct 31.0 L (37.0-47.0) % MCHC 29.7 L (32-36) g/dl RDW 14.9 H (11.5-14.0) % Plt Count 104 L (150-450) K/mm3 Immature Gran # (Auto) 0.04 H (0.000-0.0310) K/mm3 Neutrophils % 79.6 H (42-75.0) % Neutrophils % (Manual) (42-75) % Band Neuts % (Manual) (0-2.0) % Lymphocytes % 8.1 L (20-51) % Lymphocytes % (Manual) (20-51) % Monocytes % 10.5 H (0.0-9) % Neutrophils # 7.1 H (1.3-6.0) K/mm3 Neutrophils # (Manual) (1.3-6.0) K/mm3 Lymphocytes # 0.72 L (1.5-3.5) k/mm3 Lymphocytes # (Manual) (1.5-3.5) k/mm3 Atypic/Reactive Lymphs (0-2) % Sodium 144 H (132-142) mmol/L Plasma Sodium 145 H (130-142) mmol/L Chloride 111 H (97-106) mmol/L BUN 24 H (3-23) mg/dL Est GFR (Non-Af Amer) 54 L (60-130) mL/min BUN/Creatinine Ratio 22.9 H (9.0-21.6) Random Glucose 141 H (70-110) mg/dL Total Protein 5.3 L (6.2-8.2) gm/dL Albumin 2.4 L (3.4-5.0) gm/dl Urine Protein (NEGATIVE) mg/dL Urine Blood (NEGATIVE) /ul Urine Nitrate (NEGATIVE) Urine RBC (0-5) /hpf Urine Bacteria (NONE) Stl C.difficile Tox A&B Positive H (Negative) - Exam Constitutional: Present: Alert, Oriented x3, Cooperative, No distress, Elderly ENT Exam: Present: normal ENT inspection, hearing grossly normal Neck: Present: non-tender, full range of motion, supple, normal inspection, trachea midline /Rectal: Present: Exam deferred Extremity: Present: non-tender, no pedal edema, no calf tenderness, other - Circumferential erythema of right lower extremity Lymphatic: Present: no adenopathy Appearance: Present: appropriate appearance, appropriate insight, neat, no memory impairment Eye contact: Present: cooperative, good eye contact, normal speech Thoughts: Present: normal thought pattern, no apparent hallucination Assessment/Plan Plan Narrative: Patient has been made inpatient for additional day of treatment for C. difficile colitis, refractory diarrhea, UTI, and weakness. We will keep her on her current treatment with dual antibiotics and reevaluate tomorrow morning with labs. - Problems/Diagnosis (1) Colitis, Clostridium difficile Problem: Acute (2) Urinary tract infection Problem: Acute Qualifiers: (3) Diarrhea Problem: Acute Qualifiers: (4) Acute kidney injury Problem: Resolved (5) Obstructive lung disease Problem: Acute (6) Generalized anxiety disorder Problem: Chronic (7) Major depression Problem: Chronic Qualifiers: (8) SARAH (obstructive sleep apnea) Problem: Chronic (9) Atrial fibrillation Problem: Chronic (10) Dehydration with hypernatremia Problem: Acute (11) Cellulitis of right lower extremity Problem: Acute (12) H/O kidney transplant Problem: Acute
[2020-10-27] MEDS ORDERED: ACETAMINOPHEN 325 MG TABLET PO PRN (12:51)
[2020-10-27] MEDS ORDERED: ALPRAZolam 1 MG TABLET PO PRN (12:55)
[2020-10-27] MEDS ORDERED: BACLOFEN 10 MG TABLET PO PRN (12:57)
[2020-10-27] MEDS ORDERED: HYDROcodone/ACETAMINOPHEN 1 EACH TABLET PO PRN (12:59)
[2020-10-27] MEDS ORDERED: ONDANSETRON HCL 4 MG TABLET PO PRN (13:03)
[2020-10-27] MEDS ORDERED: MIRTAZAPINE 15 MG TABLET PO SCH (21:00)
[2020-10-27] MEDS ORDERED: ARIPiprazole 10 MG TABLET PO SCH (21:00)
[2020-10-27] MEDS ORDERED: SERTRALINE HCL 100 MG TABLET PO SCH (21:00)
[2020-10-27] MEDS ORDERED: INSULIN GLARGINE,HUM.REC.ANLOG 100 UNITS/ML VIAL SC SCH (21:00)
[2020-10-28] MEDS: ALBUTEROL SULFATE/IPRATROPIUM 3 ML NEBU IH SCH ×3 (02:19→10:25)
[2020-10-28] MEDS: VANCOMYCIN HCL 125 MG CAPSULE PO SCH ×2 (03:36→09:17)
[2020-10-28 07:00] LABS: Albumin * 2.5 gm/dl (3.4-5.0); Anion Gap 7.7 mmol/L (6.8-13.8); BUN/Creatinine Ratio 18.1 (9.0-21.6); Bilirubin, Total 0.3 mg/dL (0.0-1.1); Ca. Corrected For Albumin 10.4 mg/dL (8.4-10.2); Calcium * 9.5 mg/dL (7.9-10.9); Carbon Dioxide 29.6 mmol/L (24-32.6); Potassium 3.3 mmol/L (3.4-4.6); Total Protein 5.5 gm/dL (6.2-8.2)
[2020-10-28] MEDS ORDERED: LEVOTHYROXINE SODIUM 100 MCG TABLET PO SCH (07:00)
[2020-10-28] MEDS: INSULIN REGULAR, HUMAN 100 UNITS/ML VIAL SC SCH (07:13)
[2020-10-28] MEDS ORDERED: MULTIVITAMINS 1 CAP CAPSULE PO SCH (09:00)
[2020-10-28] MEDS ORDERED: ASPIRIN 325 MG TABLET.DR PO SCH (09:00)
[2020-10-28] MEDS ORDERED: AMIODARONE HCL 200 MG TABLET PO SCH (09:00)
[2020-10-28] MEDS: CALCIUM CARBONATE/VITAMIN D3 1 TAB TABLET PO SCH (09:16)
[2020-10-28] MEDS: METOPROLOL TARTRATE 25 MG TABLET PO SCH (09:17)
[2020-10-28] MEDS: CHOLECALCIFEROL 1,000 UNIT CAPSULE PO SCH (09:17)
[2020-10-28] MEDS: SACCHAROMYCES BOULARDII 250 MG CAPSULE PO SCH (09:17)
[2020-10-28] MEDS: TACROLIMUS ANHYDROUS 0.5 MG CAPSULE PO SCH (09:18)
[2020-10-28] MEDS: MYCOPHENOLATE MOFETIL 500 MG TABLET PO SCH (09:18)
[2020-10-28 11:02] VITALS: BP 159/63
[2020-10-28] MEDS ORDERED: POTASSIUM CHLORIDE 20 MEQ TABLET.SA PO ONE (11:08)
--- NOTE | 2020-10-28 11:30 | DS ---
(1) Colitis, Clostridium difficile Problem: Acute (2) Urinary tract infection Problem: Acute Qualifiers: (3) Diarrhea Problem: Resolved Qualifiers: (4) Acute kidney injury Problem: Resolved (5) Obstructive lung disease Problem: Acute (6) Generalized anxiety disorder Problem: Chronic (7) Major depression Problem: Chronic Qualifiers: (8) SARAH (obstructive sleep apnea) Problem: Chronic (9) Atrial fibrillation Problem: Chronic (10) Dehydration with hypernatremia Problem: Acute (11) Cellulitis of right lower extremity Problem: Acute (12) H/O kidney transplant Problem: Acute Date of Discharge:: 10/28/20 Hospital Course: 75-year-old female admitted for Clostridium difficile colitis, JULIANNA on CKD, generalized weakness, UTI, right lower extremity cellulitis, was evaluated at bedside and was found to be afebrile and in no acute distress. Patient has shown significant clinical improvement since arriving. She appears stronger and has better color and reports significant improvement in her bowel movements. She reports having a bowel movement this morning that was semisolid and not watery like before. Her urine culture reveals the growth of Klebsiella that is susceptible to the ceftriaxone we had her on so the patient was adequately covered. Her cellulitis has also significantly improved her right lower extremity is less erythematous and angry looking and tenderness have resolved. With these findings we will discharge patient home with additional days of oral vancomycin to continue treating her C. difficile. Procedures Performed: none Results and Findings: Pending Mircobiology Results 10/26/20 14:00 Stool Stool Culture - Preliminary No Pathogens Isolated 10/26/20 13:23 Blood Blood Culture - Preliminary NO GROWTH 24 HOURS 10/26/20 11:45 Blood Blood Culture - Preliminary NO GROWTH 24 HOURS Lab Pending Results 10/26/20 11:20: pCO2 48.0 H, pO2 76.3 L, HCO3 24.7, Total CO2 26.2 H, Base Excess -1.5, ABG pH 7.33 L, ABG O2 Sat (Measured) 94.3 10/26/20 11:29: Urine Color Yellow, Urine Appearance Clear, Urine pH 5.5, Ur Specific Notrees 1.025, Urine Protein 15 H, Urine Glucose (UA) Negative, Urine Ketones Negative, Urine Blood 50 H, Urine Nitrate Positive H, Urine Bilirubin Negative, Urine Urobilinogen Normal, Ur Leukocyte Esterase Negative, Urine RBC 5-10 H, Urine WBC 0-5, Ur Epithelial Cells Trace, Urine Bacteria 2+ H, Urine Culture Comments Culture to follow 10/26/20 11:45: WBC 16.3 H, RBC 3.68 L, Hgb 10.5 L, Hct 35.1 L, MCV 95.4, MCH 28.5, MCHC 29.9 L, RDW 14.7 H, Plt Count 123 L, MPV 10.1, Neutrophils % (Manual) 80 H, Band Neuts % (Manual) 4 H, Lymphocytes % (Manual) 5 L, Monocytes % (Manual) 4, Neutrophils # (Manual) 13.0 H, Lymphocytes # (Manual) 0.8 L, Monocytes # (Manual) 0.7, Atypic/Reactive Lymphs 7 H, Platelet Estimate Normal, RBC Morphology Normal 10/26/20 11:45: Sodium 143 H, Plasma Sodium 144 H, Potassium 3.8, Chloride 105, Carbon Dioxide 29.6, Anion Gap 12.2, BUN 26 H, Creatinine 1.16, Est GFR (Non-Af Amer) 48 L D, BUN/Creatinine Ratio 22.4 H, Random Glucose 158 H, Calcium 9.2, Calcium Adj for Albumin 9.5, Total Bilirubin 0.4, AST 19, ALT 35, Alkaline Phosphatase 150, Total Protein 6.6, Albumin 3.2 L 10/26/20 11:45: Lactic Acid, Venous 0.8 10/26/20 13:27: SARS-CoV-2 (PCR) Not detected 10/26/20 14:00: Stl C.difficile Tox A&B Positive H 10/27/20 07:15: Sodium 144 H, Plasma Sodium 145 H, Potassium 3.6, Chloride 111 H, Carbon Dioxide 28.1, Anion Gap 8.5, BUN 24 H, Creatinine 1.05, Est GFR (Non- Af Amer) 54 L, BUN/Creatinine Ratio 22.9 H, Random Glucose 141 H, Calcium 8.7, Calcium Adj for Albumin 9.7, Total Bilirubin 0.2, AST 20, ALT 27, Alkaline Phosphatase 119, Total Protein 5.3 L, Albumin 2.4 L 10/27/20 07:15: WBC 8.9 D, RBC 3.19 L, Hgb 9.2 L, Hct 31.0 L, MCV 97.2, MCH 28.8, MCHC 29.7 L, RDW 14.9 H, Plt Count 104 L, MPV 10.5, Immature Gran % (Auto) 0.40, Immature Gran # (Auto) 0.04 H, Neutrophils % 79.6 H, Lymphocytes % 8.1 L, Monocytes % 10.5 H, Eosinophils % 1.3, Basophils % 0.1, Nucleated RBC % 0.0, Ann trophils # 7.1 H, Lymphocytes # 0.72 L, Monocytes # 0.9, Eosinophils # 0.1, Absolute Basophils 0.0 10/28/20 06:39: Sodium 145 H, Plasma Sodium 145 H, Potassium 3.3 L, Chloride 111 H, Carbon Dioxide 29.6, Anion Gap 7.7, BUN 19, Creatinine 1.05, Est GFR (Non-Af Amer) 54 L, BUN/Creatinine Ratio 18.1, Random Glucose 112 H, Calcium 9.5, Calcium Adj for Albumin 10.4 H, Total Bilirubin 0.3, AST 16, ALT 24, Alkaline Phosphatase 113, Total Protein 5.5 L, Albumin 2.5 L Discharge Location: Home Disposition: Home Health Service [place] [facility] Agency: [facility] Condition: Fair Face to Face Encounter completed per [facility] Guidelines: No Discharge Activity: Activity as tolerated Discharge Diet: Consistent carbs Referrals: Dwaine Niño MD [Primary Care Provider] - Additional Patient Instructions (free text): [facility] ongoing, nursing please contact them at discharge. Prescriptions (Any new or edited meds): Cephalexin 500 mg PO BID 3 Days capsule Vancomycin HCl [Vancomycin] 125 mg PO Q6H #60 cap Transmission Status: Pending to [facility] Complete Home Medications List: Complete Home Medication List: Diphenoxylate HCl/Atropine [Lomotil 2.5-0.025 mg Tablet] 2 ea PO QID PRN 12/14/14 Mycophenolate Mofetil [Cellcept] 1,000 mg PO BID 12/14/14 Tacrolimus [Prograf] 2 mg PO BID 12/14/14 Baclofen 10 mg PO QID PRN 01/24/15 Levothyroxine Sodium [Synthroid] 100 mcg PO DAILY 04/03/15 HYDROcodone/ACETAMINOPHEN [Lorcet 5-325 mg Tablet] 1 ea PO Q6H PRN #40 tab 09/09/15 Multivitamins [Multivitamin Shawn] 1 cap PO DAILY #30 cap 04/11/15 aspirin 325 mg tablet,delayed release 325 mg PO DAILY 07/07/18 cholecalciferol (vitamin D3) 50 mcg (2,000 unit) capsule 2,000 unit PO DAILY 07/07/18 cranberry concentrate-ascorbic acid 140 mg-100 mg capsule 4,200 mg PO DAILY cap 07/07/18 ondansetron HCl 4 mg tablet 4 mg PO QID PRN 07/07/18 metoprolol tartrate 25 mg tablet 25 mg PO BID tab 10/26/18 Acetaminophen [Tylenol] 1 - 2 tab PO Q6H PRN 07/18/19 Insulin Detemir [Levemir] 28 unit SQ HS 07/18/19 Insulin Regular, Human [Novolin R] See Protocol SC AC 07/18/19 Saccharomyces Boulardii [Florastor] 250 mg PO BID 07/18/19 alprazolam 1 mg tablet 1 mg PO TID PRN #90 tab 07/13/20 aripiprazole 10 mg tablet 10 mg PO DAILY #30 tab 07/13/20 mirtazapine 30 mg tablet 30 mg PO HS #30 tab 07/13/20 sertraline 100 mg tablet 150 mg PO HS #45 tab 07/13/20 Amiodarone HCl [Pacerone] 100 mg PO DAILY 10/26/20 Calcium Citrate/Vitamin D3 [Calcium Citrate - Vit D Tablet] 1 ea PO BID 10/26/20 Cefuroxime Axetil [Cefuroxime] 250 mg PO BID 10/26/20 Cephalexin 500 mg PO BID 3 Days capsule 10/28/20 Vancomycin HCl [Vancomycin] 125 mg PO Q6H #60 cap 10/28/20 Forms: Patient Portal Registration
[2020-10-28] MEDS ORDERED: SERTRALINE HCL 50 MG TABLET PO SCH (21:00)
== END 2020-10-28 12:02 | disposition home health service (06) | DRG 372 ==
LOC: ER 10:47 → MS 10:47 → OBSVTOIN 13:19 → MS 14:46
PROVIDERS: ADMIT Family Medicine; ATTEND Family Medicine
DX: E87.0 Hyperosmolality and hypernatremia; Z94.0 Kidney transplant status; J44.9 Chronic obstructive pulmonary disease, unspecified; N18.9 Chronic kidney disease, unspecified; N39.0 Urinary tract infection, site not specified; A04.72 Enterocolitis due to Clostridium difficile, not specified as recurrent; L03.115 Cellulitis of right lower limb; G47.33 Obstructive sleep apnea (adult) (pediatric); F32.9 Major depressive disorder, single episode, unspecified; E11.22 Type 2 diabetes mellitus with diabetic chronic kidney disease; E86.0 Dehydration; I48.91 Unspecified atrial fibrillation; N17.9 Acute kidney failure, unspecified; I12.9 Hypertensive chronic kidney disease with stage 1 through stage 4 chronic kidney disease, or unspecified chronic kidney disease; F41.1 Generalized anxiety disorder; E78.5 Hyperlipidemia, unspecified; Z79.4 Long term (current) use of insulin

== ENCOUNTER 2020-12-10 11:00 | Inpatient (IN) ==
[2020-12-10] MEDS ORDERED: NORMAL SALINE 1,000 ML IV ONE (11:07)
--- NOTE | 2020-12-10 11:20 | ERNOTE ---
ER Female HPI Date of Service: 12/10/20 Stated Complaint: UTI/Weakness Presenting Symptoms: other - generalized weakness Time Seen by Provider: 12/10/20 11:07 Source: patient, EMS Exam Limitations: no limitations, clinical condition Immunizations: IMMUNIZATION HX Immunizations Up to Date Yes History of Influenza Vaccine Yes Hx Pneumococcal Vaccination Yes Allergies/Adverse Reactions: Allergies morphine Allergy (Intermediate, Verified 12/10/20 11:07) Itching nortriptyline Allergy (Mild, Verified 12/10/20 11:07) RASH sulfamethoxazole [From Bactrim] Adverse Reaction (Mild, Verified 12/10/20 11:07) severe diarrhea trimethoprim [From Bactrim] Adverse Reaction (Mild, Verified 12/10/20 11:07) severe diarrhea Home Medications: HOME MEDICATIONS Mycophenolate Mofetil [Cellcept] 1,000 mg PO BID 12/14/14 [Last Taken 02/13/17 20:00] Tacrolimus [Prograf] 2 mg PO BID 12/14/14 [Last Taken 02/13/17 20:00] Baclofen 10 mg PO QID PRN 01/24/15 [Last Taken 02/13/17 20:00] Levothyroxine Sodium [Synthroid] 0.1 mg PO DAILY 04/03/15 [Last Taken 02/13/17 08:00] HYDROcodone/ACETAMINOPHEN [Lorcet 5-325 mg Tablet] 1 ea PO Q6H PRN #40 tab 04/11/15 [Last Taken 02/13/17 20:00] Multivitamins [Multivitamin Shawn] 1 cap PO DAILY #30 cap 04/11/15 [Last Taken 02/13/17 08:00] aspirin 325 mg tablet,delayed release 325 mg PO DAILY 07/07/18 [Last Taken Unknown] cholecalciferol (vitamin D3) 50 mcg (2,000 unit) capsule 2,000 unit PO DAILY 07/07/18 [Last Taken Unknown] cranberry concentrate-ascorbic acid 140 mg-100 mg capsule 4,200 mg PO DAILY cap 07/07/18 [Last Taken Unknown] ondansetron HCl 4 mg tablet 4 mg PO QID PRN 07/07/18 [Last Taken Unknown] metoprolol tartrate 25 mg tablet 25 mg PO BID tab 10/26/18 [Last Taken Unknown] Acetaminophen [Tylenol] 1 - 2 tab PO Q6H PRN 07/18/19 [Last Taken Unknown] Insulin Detemir [Levemir] 28 unit SQ HS 07/18/19 [Last Taken Unknown] Insulin Regular, Human [Novolin R] See Protocol SC AC 07/18/19 [Last Taken Unknown] Amiodarone HCl [Pacerone] 100 mg PO DAILY 10/26/20 [Last Taken Unknown] Calcium Citrate/Vitamin D3 [Calcium Citrate - Vit D Tablet] 1 ea PO BID 10/26/20 [Last Taken Unknown] Vancomycin HCl [Vancomycin] 125 mg PO Q6H #60 cap 10/28/20 [Last Taken Unknown] aripiprazole 10 mg tablet 10 mg PO DAILY #30 tab 11/05/20 [Last Taken Unknown] mirtazapine 30 mg tablet 30 mg PO HS #30 tab 11/05/20 [Last Taken Unknown] sertraline 100 mg tablet 150 mg PO HS #45 tab 11/05/20 [Last Taken Unknown] Alprazolam 1 mg PO QID PRN 12/10/20 [Last Taken Unknown] Atorvastatin Calcium 10 mg PO 12/10/20 [Last Taken Unknown] Diphenoxylate HCl/Atropine [Lomotil Tablet] 2 ea PO QID PRN 12/10/20 [Last Taken Unknown] Fesoterodine Fumarate [Toviaz] 8 mg PO DAILY 12/10/20 [Last Taken Unknown] Saccharomyces Boulardii [Florastor] 250 mg PO BID 12/10/20 [Last Taken Unknown] - History of Present Illness Narrative: Patient presents to the ED via EMS for feeling weak all over. She was concerned about UTI. Has been dealing with C Diff and has been on vanco orally. Still with diarrhea, no blood in stool. Progressive generalized weakness. No CP or SOB. No vomiting. Nothing makes this better or worse. Timing: Present: constant, getting worse Quality: Present: other - generalize wakness Onset Location: Present: other - some occasional right sided abdominal pains Radiation: Present: none Activities at Onset: Present: none Prior Abdominal Problems: Present: similar symptoms Modifying Factors - (Improves): Present: other - nothing Modifying Factors - (Worsens): Present: other - nothing Associated Symptoms: Absent: fever/chills, vomiting Prior Treatment: Present: currently on antibiotics Review of Systems - Review of Systems Constitutional: Absent: fever ENT: Absent: sore throat Respiratory: Absent: shortness of breath Cardiology: Absent: chest pain Gastrointestinal/Abdominal: Present: See HPI Genitourinary: Present: See HPI Neurological: Present: weakness All Other Systems: All systems neg except as marked Medical History (Last Reviewed 12/10/20 @ 11:15 by Breezy Kemp MD) Generalized anxiety disorder (Chronic) Major depression (Chronic) Influenza vaccine refused patient states she will receive at pharm on later date. 06/04/18 Melanoma Onset Date: 2018 left lower extremity Neck pain Onset Date: Unknown sees pain clinic IC Acute pain of both shoulders Anxiety Arthropathy Atrial fibrillation Bipolar disorder Chronic headaches Chronic kidney disease Chronic pain syndrome Colitis Depression Diabetes mellitus GERD (gastroesophageal reflux disease) Heart disease Hemodialysis patient Hypercholesteremia Hypertension Hypothyroidism Insomnia due to other mental disorder Irritable bowel syndrome with diarrhea Major depression, recurrent Neck pain, chronic Panic attacks Vitamin D deficiency Cancer of kidney Fracture closed, humerus Hernia of abdominal wall Hip fracture Humeral fracture Intestinal obstruction Small bowel obstruction Visual disturbance Surgical History: Surgical History (Last Reviewed 12/10/20 @ 11:15 by Breezy Kemp MD) Status post surgical removal of malignant neoplasm of skin Onset Date: 2017 left lower leg-[place] Cataract unknown date Fracture of anatomical neck of right humerus History of arthroscopy of knee unknown date History of cholecystectomy unknown date History of colonoscopy 2016 History of esophagogastroduodenoscopy 2016 History of hernia repair unknown date History of hysterectomy unknown date History of resection of small bowel 06/26/2009 History of retained foreign body fully removed 06/26/2009 History of revision of total hip arthroplasty Left December 2014 Right Apr 2015 History of tonsillectomy as a child Kidney replaced by transplant Kidney replaced by transplant 01/17/2009 Presence of surgically created AV shunt for hemodialysis 2005 S/p cadaver renal transplant 2008 Family History: Family History (Last Reviewed 12/10/20 @ 11:15 by Breezy Kemp MD) Brother CVA (cerebral vascular accident) Heart disease Cancer Diabetes Dementia Father Heart disease Diabetes Alcohol abuse Sister Thyroid disease Irritable bowel syndrome (IBS) Mother Diabetes Daughter Diabetes Social History: (Last Reviewed 12/10/20 @ 11:15 by Breezy Kemp MD) Social History: skilled nursing: No Marital status: lives independently: Yes household members: spouse current occupational status: retired Highest level of school completed/degree received: high school graduate Service: No Tobacco: Smoking Status: Never smoker Alcohol: alcohol intake: never Substance Use: substance use type: does not use Dietary Habits: caffeine: Yes caffeine comment: occasional Type: other Physical Exam - Physical Exam General Appearance: Present: alert, other - generalized weakness, chronically ill appearing Head Exam: Present: normal inspection, no evidence of injury Eye Exam: Normal inspection: bilateral, PERRL: bilateral Ears, Nose, Throat: Present: normal ENT inspection, dry mucous membranes Neck: Present: normal inspection Respiratory: Present: no respiratory distress, normal breath sounds, lungs clear Cardiovascular/Chest: Present: regular rate, rhythm Gastrointestinal/Abdominal: Present: normal bowel sounds, soft, other - no tenderness over transplated kieney site Back Exam: Absent: CVA tenderness (R), CVA tenderness (L) Extremity Exam: Present: extremity edema, other - right greater than left LE redness, warm Neurological Exam: Present: alert, other - generalized weakness but no clear evidence of acute unilateral focal motor weakness Skin Exam: Present: normal color, warm/dry, other - cellulitis bilat LE, right greater than left. There is a reddened area right buttock/ cleaft area that is new per . Progress - Results and Orders Patient's Lab Results:: I have reviewed the patient's lab results. - Vital Signs Patient's Vital Signs:: I have reviewed the patient's vital signs. Vital Signs: Vital Signs 12/10/20 11:05 Temperature 36.4 C Pulse Rate 76 Respiratory Rate 10 L Blood Pressure 156/72 H O2 Sat by Pulse Oximetry 96 - EKG EKG #1 EKG: NSR EKG read: Interp. by me EKG Comments: NSR rate 74. Non-specific ST/T Wave changes, no clear evidence of STEMI noted. - X-Ray X-Ray #1 X-Ray: chest Interpretation: Interp. by me X-ray Comments: I personally reviewed the x-ray images as well as official radiology report. - Progress/Reassessment Chief Complaint: Genitourinary Problem Progress Note-Subjective: 12/10/20 12:41 arrived. Relates she cannot get out of bed and been confused off and on. Progressive over the last week. Here with new sore buttock, likely from the diarrhea and being in bed. D/W Case management and Dr Ortega. Will be admitted for further therapy. Patient and family agreeable. Departure Clinical Impression: UTI (urinary tract infection), Cellulitis, Colitis, Clostridium difficile, Generalized weakness, H/O kidney transplant, Gait instability - Departure Disposition: Still a patient Condition: Fair Referrals: Dwaine Niño MD [Primary Care Provider] -
[2020-12-10 11:38] LABS: Hematocrit 29.3 % (37.0-47.0); Mean Cell Volume 93.6 fl (78-100); Mean Corpuscular Hemoglobin 28.8 pg (27-31); Mean Corpuscular Hgb Conc 30.7 g/dl (32-36); Neutrophil # 10.1 K/mm3 (1.3-6.0); Neutrophil % 88.7 % (42-75.0); Platelet Count 131 K/mm3 (150-450); Red Blood Count 3.13 M/mm3 (4.2-5.4); Red Cell Distribution Width 15.6 % (11.5-14.0); White Blood Count 11.4 K/mm3 (4.0-10.5)
[2020-12-10 11:42] LABS: Urine Bilirubin Negative (NEGATIVE); Urine Ketone Negative (NEGATIVE); Urine Protein Negative (NEGATIVE); Urine Urobilinogen Normal (NORMAL)
[2020-12-10 11:51] LABS: Urine Appearance Cloudy (CLEAR); Urine Bacteria 3+; Urine Blood 5 /ul (NEGATIVE); Urine Color Yellow; Urine Nitrite Positive (NEGATIVE); Urine RBC 0-5 /hpf (0-5)
[2020-12-10] MEDS ORDERED: cefTRIAXone SODIUM 1,000 MG/100 ML BAG IV ONE (11:57)
[2020-12-10 12:03] LABS: Troponin I Less than 0.017 ng/mL (0.00-0.10)
[2020-12-10 12:05] LABS: ALT 13 U/L (19-67); AST 5 U/L (0-48); Albumin * 2.8 gm/dl (3.4-5.0); Alkaline Phosphatase * 125 U/L (50-170); Anion Gap 14.3 mmol/L (6.8-13.8); BUN/Creatinine Ratio 17.8 (9.0-21.6); Bilirubin, Total 0.1 mg/dL (0.0-1.1); Blood Urea Nitrogen 19 mg/dL (3-23); Ca. Corrected For Albumin 9.3 mg/dL (8.4-10.2); Calcium * 8.7 mg/dL (7.9-10.9); Carbon Dioxide 25.1 mmol/L (24-32.6); Chloride 109 mmol/L (97-106); Glucose * 224 mg/dL (70-110); Lipase 20 U/L (73-393); Magnesium 1.1 mg/dL (1.2-2.8); Potassium 3.4 mmol/L (3.4-4.6); Sodium 145 mmol/L (132-142); Total Protein 5.9 gm/dL (6.2-8.2)
--- NOTE | 2020-12-10 14:22 | HP ---
Chief Complaint - Chief Complaint Date of Service: 12/10/20 Time of Service: 13:37 Chief Complaint: Weakenss History of Present Illness: 75-year-old female with a past medical history of C. difficile colitis, CKD, bipolar disorder, atrial fibrillation, anxiety, kidney cancer status post transplant, depression, diabetes mellitus, GERD, anxiety, heart disease, hypertension, hypothyroidism, IBS with diarrhea presents from home with c omplaints of weakness. She states she has been taking medication for C. difficile diarrhea for the past several weeks. She has also had poor oral intake. She had 5 episodes of diarrhea this morning. She lives alone and ambulates with a walker. In the ER she was found to have mild leukocytosis of 11.4, hemoglobin of 9 which is near her baseline of 9.2-11.9, positive UA, sodium of 147, GFR 53 with baseline of 54-57, chest x-ray showed no acute cardiopulmonary abnormality. She has redness of bilateral lower extremities right worse than the left. She states her legs are always swollen denies any pain in her legs. She is being admitted for UTI and dehydration. She was started on ceftriaxone in the emergency room. Medical History (Last Reviewed 12/10/20 @ 11:15 by Breezy Kemp MD) Generalized anxiety disorder (Chronic) Major depression (Chronic) Influenza vaccine refused patient states she will receive at pharm on later date. 06/04/18 Melanoma Onset Date: 2018 left lower extremity Neck pain Onset Date: Unknown sees pain clinic IC Acute pain of both shoulders Anxiety Arthropathy Atrial fibrillation Bipolar disorder Chronic headaches Chronic kidney disease Chronic pain syndrome Colitis Depression Diabetes mellitus GERD (gastroesophageal reflux disease) Heart disease Hemodialysis patient Hypercholesteremia Hypertension Hypothyroidism Insomnia due to other mental disorder Irritable bowel syndrome with diarrhea Major depression, recurrent Neck pain, chronic Panic attacks Vitamin D deficiency Cancer of kidney Fracture closed, humerus Hernia of abdominal wall Hip fracture Humeral fracture Intestinal obstruction Small bowel obstruction Visual disturbance Surgical History: Surgical History (Last Reviewed 12/10/20 @ 11:15 by Breezy Kemp MD) Status post surgical removal of malignant neoplasm of skin Onset Date: 2018 left lower leg-[facility] Cataract unknown date Fracture of anatomical neck of right humerus History of arthroscopy of knee unknown date History of cholecystectomy unknown date History of colonoscopy 2016 History of esophagogastroduodenoscopy 2016 History of hernia repair unknown date History of hysterectomy unknown date History of resection of small bowel 06/26/2009 History of retained foreign body fully removed 06/26/2009 History of revision of total hip arthroplasty Left December 2014 Right Apr 2015 History of tonsillectomy as a child Kidney replaced by transplant Kidney replaced by transplant 01/17/2009 Presence of surgically created AV shunt for hemodialysis 2005 S/p cadaver renal transplant 2008 Family History: Family History (Last Reviewed 12/10/20 @ 11:15 by Breezy Kemp MD) Brother CVA (cerebral vascular accident) Heart disease Cancer Diabetes Dementia Father Heart disease Diabetes Alcohol abuse Sister Thyroid disease Irritable bowel syndrome (IBS) Mother Diabetes Daughter Diabetes Social History: (Last Reviewed 12/10/20 @ 11:15 by Breezy Kemp MD) Social History: senior care: No Marital status: lives independently: Yes household members: spouse current occupational status: retired Highest level of school completed/degree received: high school graduate Service: No Tobacco: Smoking Status: Never smoker Alcohol: alcohol intake: never Substance Use: substance use type: does not use Dietary Habits: caffeine: Yes caffeine comment: occasional Type: other Review Of Systems (GEN) - Review of Systems Generalized/Overall Review: Present: Weakness. Absent: Chills, Fever Respiratory: Absent: Shortness of Breath Cardiac: Absent: Chest Pain Abdominal: Present: Diarrhea. Absent: Abdominal Pain Misc: All systems neg except as marked Immunizations: IMMUNIZATION HX Immunizations Up to Date Yes History of Influenza Vaccine Yes Hx Pneumococcal Vaccination Yes Allergies/Adverse Reactions: Allergies Allergy/AdvReac Type Severity Reaction Status Date / Time morphine Allergy Intermediate Itching Verified 12/10/20 15:07 nortriptyline Allergy Mild RASH Verified 12/10/20 15:07 sulfamethoxazole AdvReac Mild severe Verified 12/10/20 15:07 [From Bactrim] diarrhea trimethoprim [From Bactrim] AdvReac Mild severe Verified 12/10/20 15:07 diarrhea Home Medications: HOME MEDICATIONS Mycophenolate Mofetil [Cellcept] 1,000 mg PO BID 12/14/14 [Last Taken 02/13/17 20:00] Tacrolimus [Prograf] 2 mg PO BID 12/14/14 [Last Taken 02/13/17 20:00] Baclofen 10 mg PO QID PRN 01/24/15 [Last Taken 02/13/17 20:00] Levothyroxine Sodium [Synthroid] 0.1 mg PO DAILY 04/03/15 [Last Taken 02/13/17 08:00] HYDROcodone/ACETAMINOPHEN [Lorcet 5-325 mg Tablet] 1 ea PO Q6H PRN #40 tab 04/11/15 [Last Taken 02/13/17 20:00] Multivitamins [Multivitamin Shawn] 1 cap PO DAILY #30 cap 04/11/15 [Last Taken 02/13/17 08:00] aspirin 325 mg tablet,delayed release 325 mg PO DAILY 07/07/18 [Last Taken Unknown] cholecalciferol (vitamin D3) 50 mcg (2,000 unit) capsule 2,000 unit PO DAILY 07/07/18 [Last Taken Unknown] cranberry concentrate-ascorbic acid 140 mg-100 mg capsule 4,200 mg PO DAILY cap 07/07/18 [Last Taken Unknown] ondansetron HCl 4 mg tablet 4 mg PO QID PRN 07/07/18 [Last Taken Unknown] metoprolol tartrate 25 mg tablet 25 mg PO BID tab 10/26/18 [Last Taken Unknown] Acetaminophen [Tylenol] 1 - 2 tab PO Q6H PRN 07/18/19 [Last Taken Unknown] Insulin Detemir [Levemir] 28 unit SQ HS 07/18/19 [Last Taken Unknown] Insulin Regular, Human [Novolin R] See Protocol SC AC 07/18/19 [Last Taken Unknown] Amiodarone HCl [Pacerone] 100 mg PO DAILY 10/26/20 [Last Taken Unknown] Calcium Citrate/Vitamin D3 [Calcium Citrate - Vit D Tablet] 1 ea PO BID 10/26/20 [Last Taken Unknown] Vancomycin HCl [Vancomycin] 125 mg PO Q6H #60 cap 10/28/20 [Last Taken Unknown] aripiprazole 10 mg tablet 10 mg PO DAILY #30 tab 11/05/20 [Last Taken Unknown] mirtazapine 30 mg tablet 30 mg PO HS #30 tab 11/05/20 [Last Taken Unknown] sertraline 100 mg tablet 150 mg PO HS #45 tab 11/05/20 [Last Taken Unknown] Alprazolam 1 mg PO QID PRN 12/10/20 [Last Taken Unknown] Atorvastatin Calcium 10 mg PO 12/10/20 [Last Taken Unknown] Diphenoxylate HCl/Atropine [Lomotil Tablet] 2 ea PO QID PRN 12/10/20 [Last Taken Unknown] Fesoterodine Fumarate [Toviaz] 8 mg PO DAILY 12/10/20 [Last Taken Unknown] Saccharomyces Boulardii [Florastor] 250 mg PO BID 12/10/20 [Last Taken Unknown] Exam - Exam Vital Signs: Vital Signs - Last Taken Temp 36.4 C 12/10/20 11:05 Pulse 75 12/10/20 14:06 Resp 30 H 12/10/20 14:06 BP 151/67 H 12/10/20 14:06 Pulse Ox 94 12/10/20 14:06 Constitutional: Present: Alert, Cooperative, Well developed, Well nourished, No distress, Elderly ENT Exam: Present: hearing grossly normal, moist mucous membranes Eye Exam: bilateral eye: normal inspection, PERRL, EOMI Neck: Present: non-tender, supple. Absent: lymphadenopathy (R), lymphadenopathy (L) Back Exam: Present: normal inspection, no CVA tenderness, no vertebral tenderness Respiratory: Present: lungs clear, no respiratory distress, no accessory muscle use, No wheezing. Absent: crackles, rhonchi Cardiovascular/Chest: Present: normal peripheral pulses, regular rate, rhythm, no murmur, edema - 1+ pitting, left worse than right Peripheral Pulses: dorsalis-pedis (R): 1+, dorsalis-pedis (L): 1+ Abdomen: Present: Normal bowel sounds, soft, nontender Extremity: Present: lower extremity edema - 1+ pitting, left worse than right Skin Exam: Present: other - Right leg: Erythema up to the knee, nontender to palpation Left leg: Mild erythema anterior leg Neurologic: Present: alert, normal mood/affect, other - Right lateral flexion of her head Appearance: Present: appropriate appearance, appropriate insight Eye contact: Present: cooperative Thoughts: Present: normal thought pattern, normal mood /affect Diagnostic Studies: Abnormal Lab Results 12/10/20 12/10/20 12/10/20 Range/Units 11:15 11:30 11:30 WBC 11.4 H (4.0-10.5) K/mm3 RBC 3.13 L (4.2-5.4) M/mm3 Hgb 9.0 L (12.5-16.0) gm/dL Hct 29.3 L (37.0-47.0) % MCHC 30.7 L (32-36) g/dl RDW 15.6 H (11.5-14.0) % Plt Count 131 L (150-450) K/mm3 Immature Gran # (Auto) 0.04 H (0.000-0.0310) K/mm3 Neutrophils % 88.7 H (42-75.0) % Lymphocytes % 4.1 L (20-51) % Neutrophils # 10.1 H (1.3-6.0) K/mm3 Lymphocytes # 0.47 L (1.5-3.5) k/mm3 Sodium 145 H (132-142) mmol/L Plasma Sodium 147 H (130-142) mmol/L Chloride 109 H (97-106) mmol/L Anion Gap 14.3 H (6.8-13.8) mmol/L Est GFR (Non-Af Amer) 53 L (60-130) mL/min Random Glucose 224 H (70-110) mg/dL Magnesium 1.1 L (1.2-2.8) mg/dL ALT 13 L (19-67) U/L Total Protein 5.9 L (6.2-8.2) gm/dL Albumin 2.8 L (3.4-5.0) gm/dl Lipase 20 L (73-393) U/L Urine Blood 5 H (NEGATIVE) /ul Urine Nitrate Positive H (NEGATIVE) Ur Leukocyte Esterase 25 H (NEGATIVE) /ul Urine WBC 5-10 H (0-5) /hpf Urine Bacteria 3+ H (NONE) Laboratory Results WBC 11.4 K/mm3 (4.0-10.5) H 12/10/20 11:30 RBC 3.13 M/mm3 (4.2-5.4) L 12/10/20 11:30 Hgb 9.0 gm/dL (12.5-16.0) L 12/10/20 11:30 Hct 29.3 % (37.0-47.0) L 12/10/20 11:30 MCV 93.6 fl (78-100) 12/10/20 11:30 MCH 28.8 pg (27-31) 12/10/20 11:30 MCHC 30.7 g/dl (32-36) L 12/10/20 11:30 RDW 15.6 % (11.5-14.0) H 12/10/20 11:30 Plt Count 131 K/mm3 (150-450) L 12/10/20 11:30 MPV 10.0 fl (8-12.5) 12/10/20 11:30 Immature Gran % (Auto) 0.40 % (0.001-0.429) 12/10/20 11:30 Immature Gran # (Auto) 0.04 K/mm3 (0.000-0.0310) H 12/10/20 11:30 Neutrophils % 88.7 % (42-75.0) H 12/10/20 11:30 Lymphocytes % 4.1 % (20-51) L 12/10/20 11:30 Monocytes % 6.2 % (0.0-9) 12/10/20 11:30 Eosinophils % 0.4 % (0.0-3.0) 12/10/20 11:30 Basophils % 0.2 % (0.0-1.0) 12/10/20 11:30 Nucleated RBC % 0.0 k/mm3 (0-1) 12/10/20 11:30 Neutrophils # 10.1 K/mm3 (1.3-6.0) H 12/10/20 11:30 Lymphocytes # 0.47 k/mm3 (1.5-3.5) L 12/10/20 11:30 Monocytes # 0.7 k/mm3 (0.0-1.0) 12/10/20 11:30 Eosinophils # 0.1 k/mm3 (0.0-0.7) 12/10/20 11:30 Absolute Basophils 0.0 k/mm3 (0.0-0.1) 12/10/20 11:30 Sodium 145 mmol/L (132-142) H 12/10/20 11:30 Plasma Sodium 147 mmol/L (130-142) H 12/10/20 11:30 Potassium 3.4 mmol/L (3.4-4.6) 12/10/20 11:30 Chloride 109 mmol/L (97-106) H 12/10/20 11:30 Carbon Dioxide 25.1 mmol/L (24-32.6) 12/10/20 11:30 Anion Gap 14.3 mmol/L (6.8-13.8) H 12/10/20 11:30 BUN 19 mg/dL (3-23) D 12/10/20 11:30 Creatinine 1.07 mg/dL (0.4-1.4) 12/10/20 11:30 Est GFR (Non-Af Amer) 53 mL/min (60-130) L 12/10/20 11:30 BUN/Creatinine Ratio 17.8 (9.0-21.6) 12/10/20 11:30 Random Glucose 224 mg/dL (70-110) H 12/10/20 11:30 Lactic Acid, Venous 1.9 mmol/L (0.4-2.0) 12/10/20 11:30 Calcium 8.7 mg/dL (7.9-10.9) 12/10/20 11:30 Calcium Adj for Albumin 9.3 mg/dL (8.4-10.2) 12/10/20 11:30 Magnesium 1.1 mg/dL (1.2-2.8) L 12/10/20 11:30 Total Bilirubin 0.1 mg/dL (0.0-1.1) 12/10/20 11:30 AST 5 U/L (0-48) 12/10/20 11:30 ALT 13 U/L (19-67) L 12/10/20 11:30 Alkaline Phosphatase 125 U/L (50-170) 12/10/20 11:30 Troponin I Less than 0.017 ng/mL (0.00-0.10) 12/10/20 11:30 Total Protein 5.9 gm/dL (6.2-8.2) L 12/10/20 11:30 Albumin 2.8 gm/dl (3.4-5.0) L 12/10/20 11:30 Lipase 20 U/L (73-393) L 12/10/20 11:30 Urine Color Yellow 12/10/20 11:15 Urine Appearance Cloudy (CLEAR) 12/10/20 11:15 Urine pH 5.0 pH (5.0-7.0) 12/10/20 11:15 Ur Specific [place] 1.020 SP.GR. (1.005-1.010) 12/10/20 11:15 Urine Protein Negative mg/dL (NEGATIVE) 12/10/20 11:15 Urine Glucose (UA) Negative mg/dL (NEGATIVE) 12/10/20 11:15 Urine Ketones Negative mg/dL (NEGATIVE) 12/10/20 11:15 Urine Blood 5 /ul (NEGATIVE) H 12/10/20 11:15 Urine Nitrate Positive (NEGATIVE) H 12/10/20 11:15 Urine Bilirubin Negative mg/dl (NEGATIVE) 12/10/20 11:15 Urine Urobilinogen Normal EU/dl (NORMAL) 12/10/20 11:15 Ur Leukocyte Esterase 25 /ul (NEGATIVE) H 12/10/20 11:15 Urine RBC 0-5 /hpf (0-5) 12/10/20 11:15 Urine WBC 5-10 /hpf (0-5) H 12/10/20 11:15 Ur Epithelial Cells 0-5 /hpf (0-5) 12/10/20 11:15 Urine Bacteria 3+ (NONE) H 12/10/20 11:15 Urine Culture Comments Culture to follow 12/10/20 11:15 SARS-CoV-2 (PCR) Not detected (NotDetected) 12/10/20 12:40 Assessment/Plan - Narrative Narrative: 75-year-old female with a past medical history of C. difficile colitis, CKD, bipolar disorder, atrial fibrillation, anxiety, kidney cancer status post transplant, depression, diabetes mellitus, GERD, anxiety, heart disease, hypertension, hypothyroidism, IBS with diarrhea presents from home with complaints of weakness. She states she has been taking medication for C. difficile diarrhea for the past several weeks. She has also had poor oral intake. She had 5 episodes of diarrhea this morning. She lives alone and ambulates with a walker. In the ER she was found to have mild leukocytosis of 11.4, hemoglobin of 9 which is near her baseline of 9.2-11.9, positive UA, sodium of 147, GFR 53 with baseline of 54-57, chest x-ray showed no acute cardiopulmonary abnormality. She has redness of bilateral lower extremities right worse than the left. She states her legs are always swollen denies any pain in her legs. She is being admitted for UTI and dehydration. She was started on ceftriaxone and IV fluids in the emergency room. Plan #1 continue with ceftriaxone day 1 #2 Encourage oral hydration #3 CBC and CMP in the morning #4 resume home medications for comorbidities - Assessment/Plan (1) Hypernatremia Problem: Acute (2) Urinary tract infection Problem: Acute Qualifiers: (3) Colitis, Clostridium difficile Problem: Acute (4) H/O kidney transplant Problem: Acute (5) Generalized weakness Problem: Acute (6) Gait instability Problem: Acute (7) Atrial fibrillation Problem: Chronic (8) Hyperlipidemia Problem: Chronic (9) Hypothyroidism Problem: Chronic (10) Hypertension Problem: Chronic
[2020-12-10] MEDS ORDERED: ACETAMINOPHEN 325 MG TABLET PO PRN (16:49)
[2020-12-10] MEDS ORDERED: ONDANSETRON HCL 4 MG TABLET PO PRN (16:49)
[2020-12-10] MEDS ORDERED: HYDROcodone/ACETAMINOPHEN 1 EACH TABLET PO PRN (16:49)
[2020-12-10] MEDS ORDERED: BACLOFEN 10 MG TABLET PO PRN (16:49)
[2020-12-10] MEDS: ROSUVASTATIN CALCIUM 5 MG TABLET PO SCH (17:39)
[2020-12-10] MEDS: INSULIN GLARGINE,HUM.REC.ANLOG 100 UNITS/ML VIAL SC SCH (21:18)
[2020-12-10] MEDS: MYCOPHENOLATE MOFETIL 500 MG TABLET PO SCH (21:19)
[2020-12-10] MEDS: SERTRALINE HCL 50 MG TABLET PO SCH (21:20)
[2020-12-10] MEDS: TACROLIMUS ANHYDROUS 0.5 MG CAPSULE PO SCH (21:20)
[2020-12-10] MEDS: SACCHAROMYCES BOULARDII 250 MG CAPSULE PO SCH (21:20)
[2020-12-10] MEDS: METOPROLOL TARTRATE 25 MG TABLET PO SCH (21:21)
[2020-12-10] MEDS: ALPRAZolam 1 MG TABLET PO PRN (21:55)
[2020-12-11] MEDS: ALPRAZolam 1 MG TABLET PO PRN ×2 (01:07→20:50)
[2020-12-11 06:35] LABS: Hematocrit 31.6 % (37.0-47.0); Hemoglobin 9.6 gm/dL (12.5-16.0); Mean Cell Volume 93.5 fl (78-100); Mean Corpuscular Hemoglobin 28.4 pg (27-31); Mean Corpuscular Hgb Conc 30.4 g/dl (32-36); Mean Platelet Volume 9.6 fl (8-12.5); Neutrophil # 11.2 K/mm3 (1.3-6.0); Neutrophil % 87.2 % (42-75.0); Platelet Count 128 K/mm3 (150-450); Red Blood Count 3.38 M/mm3 (4.2-5.4); Red Cell Distribution Width 15.5 % (11.5-14.0); White Blood Count 12.8 K/mm3 (4.0-10.5)
[2020-12-11] MEDS: LEVOTHYROXINE SODIUM 100 MCG TABLET PO SCH (06:50)
[2020-12-11 06:55] LABS: Anion Gap 12.9 mmol/L (6.8-13.8); BUN/Creatinine Ratio 12.6 (9.0-21.6); Bilirubin, Total 0.2 mg/dL (0.0-1.1); Ca. Corrected For Albumin 9.1 mg/dL (8.4-10.2); Calcium * 8.6 mg/dL (7.9-10.9); Carbon Dioxide 26.2 mmol/L (24-32.6); Potassium 3.1 mmol/L (3.4-4.6); Total Protein 6.1 gm/dL (6.2-8.2)
[2020-12-11] MEDS: CALCIUM CARBONATE/VITAMIN D3 1 TAB TABLET PO SCH ×2 (09:04→20:52)
[2020-12-11] MEDS: MULTIVITAMINS 1 CAP CAPSULE PO SCH (09:04)
[2020-12-11] MEDS: TACROLIMUS ANHYDROUS 0.5 MG CAPSULE PO SCH ×2 (09:04→20:54)
[2020-12-11] MEDS: SACCHAROMYCES BOULARDII 250 MG CAPSULE PO SCH ×2 (09:04→20:52)
[2020-12-11] MEDS: TOLTERODINE TARTRATE 4 MG CAPSULE PO SCH (09:04)
[2020-12-11] MEDS: VANCOMYCIN HCL 125 MG CAPSULE PO SCH ×3 (09:04→20:51)
[2020-12-11] MEDS: ASPIRIN 325 MG TABLET.DR PO SCH (09:04)
[2020-12-11] MEDS: ARIPiprazole 10 MG TABLET PO SCH (09:04)
[2020-12-11] MEDS: CHOLECALCIFEROL 1,000 UNIT CAPSULE PO SCH (09:04)
[2020-12-11] MEDS: CRANBERRY PO SCH (09:05)
[2020-12-11] MEDS: AMIODARONE HCL 200 MG TABLET PO SCH (09:05)
[2020-12-11] MEDS: MYCOPHENOLATE MOFETIL 500 MG TABLET PO SCH ×2 (09:05→20:52)
[2020-12-11] MEDS: METOPROLOL TARTRATE 25 MG TABLET PO SCH ×2 (09:05→20:53)
[2020-12-11] MEDS: ASCORBIC ACID PO SCH (09:05)
[2020-12-11] MEDS: POTASSIUM BICARBONATE/CIT AC 25 MEQ TABLET.EFF PO SCH (11:24)
[2020-12-11] MEDS: INSULIN REGULAR, HUMAN 100 UNITS/ML VIAL SC SCH ×2 (11:56→17:36)
--- NOTE | 2020-12-11 12:20 | PN ---
Subjective - Date and Time Seen Date: 12/11/20 Time: 10:13 Subjective Narrative: She states she feels a little better today. She had 5-6 episodes of diarrhea this morning. She is tolerating her diet. She denies abdominal pain. Objective - Review of Systems Generalized/Overall Review: Reports: Weakness. Denies: Chills, Fever Respiratory: Denies: Shortness of Breath Cardiac: Denies: Chest Pain Abdominal: Reports: Diarrhea. Denies: Abdominal Pain Misc: All systems neg except as marked - Vitals Vitals: Last Vital Signs Temp 37.1 C 12/11/20 06:47 Pulse 73 12/11/20 09:05 Resp 22 H 12/11/20 06:47 BP 134/83 12/11/20 09:05 Pulse Ox 92 L 12/11/20 06:47 - Abnormal Lab Findings Abnormal Lab Findings: Abnormal Lab Results 12/11/20 12/11/20 Range/Units 06:24 06:24 WBC 12.8 H (4.0-10.5) K/mm3 RBC 3.38 L (4.2-5.4) M/mm3 Hgb 9.6 L (12.5-16.0) gm/dL Hct 31.6 L (37.0-47.0) % MCHC 30.4 L (32-36) g/dl RDW 15.5 H (11.5-14.0) % Plt Count 128 L (150-450) K/mm3 Immature Gran # (Auto) 0.05 H (0.000-0.0310) K/mm3 Neutrophils % 87.2 H (42-75.0) % Lymphocytes % 5.4 L (20-51) % Neutrophils # 11.2 H (1.3-6.0) K/mm3 Lymphocytes # 0.69 L (1.5-3.5) k/mm3 Sodium 146 H (132-142) mmol/L Plasma Sodium 147 H (130-142) mmol/L Potassium 3.1 L (3.4-4.6) mmol/L Chloride 110 H (97-106) mmol/L Random Glucose 163 H (70-110) mg/dL ALT 13 L (19-67) U/L Total Protein 6.1 L (6.2-8.2) gm/dL Albumin 3.0 L (3.4-5.0) gm/dl - Exam Constitutional: Present: Alert, Cooperative, Well developed, Well nourished, No distress, Elderly ENT Exam: Present: hearing grossly normal Neck: Present: non-tender, supple, other - Neck is flexed forward and to the right. Absent: lymphadenopathy (R), lymphadenopathy (L) Respiratory: Present: lungs clear, no respiratory distress, no accessory muscle use, No wheezing Cardiovascular/Chest: Present: normal peripheral pulses, regular rate, rhythm, no edema Abdomen: Present: Normal bowel sounds, soft, nontender Extremity: Present: no pedal edema Skin Exam: Present: normal color - Erythema has markedly improved in bilateral lower extremities, warm/dry Neurologic: Present: alert, normal mood/affect Appearance: Present: appropriate appearance, appropriate insight Eye contact: Present: cooperative Thoughts: Present: normal thought pattern, normal mood /affect Assessment/Plan Plan Narrative: 75-year-old female with a past medical history of C. difficile colitis, CKD, bipolar disorder, atrial fibrillation, anxiety, kidney cancer status post transplant, depression, diabetes mellitus, GERD, anxiety, heart disease, hypertension, hypothyroidism, IBS with diarrhea presents from home with complaints of weakness. She states she has been taking medication for C. difficile diarrhea for the past several weeks. She has also had poor oral intake. She had 5 episodes of diarrhea this morning. She lives alone and ambulates with a walker. In the ER she was found to have mild leukocytosis of 11.4, hemoglobin of 9 which is near her baseline of 9.2-11.9, positive UA, sodium of 147, GFR 53 with baseline of 54-57, chest x-ray showed no acute cardiopulmonary abnormality. She has redness of bilateral lower extremities right worse than the left. She states her legs are always swollen denies any pain in her legs. She is being admitted for UTI and dehydration. She was started on ceftriaxone and IV fluids in the emergency room. She continues to have diarrhea this morning. She states this is her third episode of C. difficile this year. She was started on this current dose of vanc omycin on December 07, 2020 by her primary care physician Dr. Niño. I spoke with Dr. Rascon, infectious disease at the [facility] today regarding his recommendation for treating her recurrent C. difficile and he is in agreement with continuing the vancomycin taper. He states she may benefit from a gastroenterology consult for a fecal transplant once she has been discharged. Urine culture is positive for gram-negative bacilli. Awaiting culture and sensitivities, continue with ceftriaxone. Potassium dropped to 3.1. Plan #1 continue with ceftriaxone day 2 #2 Encourage oral hydration #3 CBC and CMP in the morning #4 resume home medications for comorbidities #5 continue with vancomycin taper and probiotic #6 replete potassium as needed - Problems/Diagnosis (1) Hypernatremia Problem: Acute (2) Urinary tract infection Problem: Acute Qualifiers: (3) Colitis, Clostridium difficile Problem: Acute (4) H/O kidney transplant Problem: Acute (5) Generalized weakness Problem: Acute (6) Gait instability Problem: Acute (7) Atrial fibrillation Problem: Chronic (8) Hyperlipidemia Problem: Chronic (9) Hypothyroidism Problem: Chronic (10) Hypertension Problem: Chronic (11) Hypokalemia due to excessive gastrointestinal loss of potassium Problem: Acute
[2020-12-11] MEDS: ENOXAPARIN SODIUM 40 MG/0.4 ML SYRG SC SCH (14:04)
[2020-12-11] MEDS: ROSUVASTATIN CALCIUM 5 MG TABLET PO SCH (17:36)
[2020-12-11] MEDS: SERTRALINE HCL 50 MG TABLET PO SCH (20:51)
[2020-12-11] MEDS: MIRTAZAPINE 15 MG TABLET PO SCH (20:54)
[2020-12-11] MEDS: INSULIN GLARGINE,HUM.REC.ANLOG 100 UNITS/ML VIAL SC SCH (20:55)
[2020-12-12] MEDS: VANCOMYCIN HCL 125 MG CAPSULE PO SCH ×4 (01:35→20:01)
[2020-12-12] MEDS: ALPRAZolam 1 MG TABLET PO PRN ×2 (03:36→20:10)
[2020-12-12 06:46] LABS: Hematocrit 33.1 % (37.0-47.0); Hemoglobin 10.1 gm/dL (12.5-16.0); Mean Cell Volume 92.5 fl (78-100); Mean Corpuscular Hemoglobin 28.2 pg (27-31); Mean Corpuscular Hgb Conc 30.5 g/dl (32-36); Mean Platelet Volume 10.1 fl (8-12.5); Platelet Count 166 K/mm3 (150-450); Red Blood Count 3.58 M/mm3 (4.2-5.4); Red Cell Distribution Width 15.5 % (11.5-14.0); White Blood Count 15.1 K/mm3 (4.0-10.5)
[2020-12-12 06:51] LABS: Total Cells Counted 100
[2020-12-12 06:56] LABS: Albumin * 3.1 gm/dl (3.4-5.0); Bilirubin, Total 0.3 mg/dL (0.0-1.1); Ca. Corrected For Albumin 9.2 mg/dL (8.4-10.2); Calcium * 8.8 mg/dL (7.9-10.9); Carbon Dioxide 28.4 mmol/L (24-32.6); Potassium 3.4 mmol/L (3.4-4.6); Total Protein 6.5 gm/dL (6.2-8.2)
[2020-12-12 07:19] LABS: Lymphocyte 3 % (20-51); Monocyte 7 % (0-9); Neutrophil 90 % (42-75); Neutrophil # 13.6 K/mm3 (1.3-6.0)
[2020-12-12] MEDS: INSULIN REGULAR, HUMAN 100 UNITS/ML VIAL SC SCH ×3 (07:20→17:06)
[2020-12-12 07:21] LABS: Platelet Estimate Normal (NORMAL); RBC Morphology Normal (NORMAL)
[2020-12-12] MEDS: LEVOTHYROXINE SODIUM 100 MCG TABLET PO SCH (07:22)
[2020-12-12] MEDS ORDERED: LOSARTAN POTASSIUM 50 MG TABLET PO SCH (09:00)
[2020-12-12] MEDS: ASCORBIC ACID PO SCH (09:33)
[2020-12-12] MEDS: CRANBERRY PO SCH (09:33)
[2020-12-12] MEDS: MYCOPHENOLATE MOFETIL 500 MG TABLET PO SCH ×2 (09:52→20:01)
[2020-12-12] MEDS: TACROLIMUS ANHYDROUS 0.5 MG CAPSULE PO SCH ×2 (09:54→20:00)
[2020-12-12] MEDS: AMIODARONE HCL 200 MG TABLET PO SCH (09:56)
[2020-12-12] MEDS: CALCIUM CARBONATE/VITAMIN D3 1 TAB TABLET PO SCH ×2 (09:57→20:01)
[2020-12-12] MEDS: ASPIRIN 325 MG TABLET.DR PO SCH (09:57)
[2020-12-12] MEDS: POTASSIUM BICARBONATE/CIT AC 25 MEQ TABLET.EFF PO SCH (09:57)
[2020-12-12] MEDS: SACCHAROMYCES BOULARDII 250 MG CAPSULE PO SCH ×2 (09:57→20:04)
[2020-12-12] MEDS: CHOLECALCIFEROL 1,000 UNIT CAPSULE PO SCH (09:57)
[2020-12-12] MEDS: MULTIVITAMINS 1 CAP CAPSULE PO SCH (09:57)
[2020-12-12] MEDS: ARIPiprazole 10 MG TABLET PO SCH (09:57)
[2020-12-12] MEDS: TOLTERODINE TARTRATE 4 MG CAPSULE PO SCH (09:58)
[2020-12-12] MEDS: METOPROLOL TARTRATE 25 MG TABLET PO SCH ×2 (09:58→20:03)
--- NOTE | 2020-12-12 10:46 | PN ---
Subjective - Date and Time Seen Date: 12/12/20 Time: 08:48 Subjective Narrative: She feels better today but continues to have diarrhea. She had 6 episodes of diarrhea overnight. She denies abdominal pain, chest pain or shortness of breath. She is tolerating her diet. Objective - Review of Systems Generalized/Overall Review: Denies: Fever Respiratory: Denies: Shortness of Breath Cardiac: Denies: Chest Pain Abdominal: Reports: Diarrhea. Denies: Abdominal Pain Misc: All systems neg except as marked - Vitals Vitals: Last Vital Signs Temp 37.4 C 12/12/20 06:27 Pulse 84 12/12/20 09:58 Resp 30 H 12/12/20 06:27 BP 171/83 H 12/12/20 09:58 Pulse Ox 96 12/12/20 06:27 - Abnormal Lab Findings Abnormal Lab Findings: Abnormal Lab Results 12/12/20 12/12/20 Range/Units 06:24 06:24 WBC 15.1 H (4.0-10.5) K/mm3 RBC 3.58 L (4.2-5.4) M/mm3 Hgb 10.1 L (12.5-16.0) gm/dL Hct 33.1 L (37.0-47.0) % MCHC 30.5 L (32-36) g/dl RDW 15.5 H (11.5-14.0) % Neutrophils % (Manual) 90 H (42-75) % Lymphocytes % (Manual) 3 L (20-51) % Neutrophils # (Manual) 13.6 H (1.3-6.0) K/mm3 Lymphocytes # (Manual) 0.5 L (1.5-3.5) k/mm3 Monocytes # (Manual) 1.1 H (0.0-1.0) k/mm3 Sodium 145 H (132-142) mmol/L Plasma Sodium 146 H (130-142) mmol/L Chloride 108 H (97-106) mmol/L Random Glucose 155 H (70-110) mg/dL ALT 13 L (19-67) U/L Albumin 3.1 L (3.4-5.0) gm/dl - Exam Constitutional: Present: Alert, Cooperative, Well developed, Well nourished, No distress, Elderly ENT Exam: Present: hearing grossly normal Neck: Present: non-tender, supple. Absent: lymphadenopathy (R), lymphadenopathy (L) Respiratory: Present: lungs clear, no accessory muscle use, No wheezing. Absent: crackles, rhonchi Cardiovascular/Chest: Present: normal peripheral pulses, regular rate, rhythm, no edema, no murmur Abdomen: Present: Normal bowel sounds, soft, nontender Extremity: Present: no pedal edema Skin Exam: Present: normal color, warm/dry Neurologic: Present: alert, normal mood/affect Appearance: Present: appropriate appearance, appropriate insight Eye contact: Present: cooperative Thoughts: Present: normal thought pattern Assessment/Plan Plan Narrative: 75-year-old female with a past medical history of C. difficile colitis, CKD, bipolar disorder, atrial fibrillation, anxiety, kidney cancer status post transplant, depression, diabetes mellitus, GERD, anxiety, heart disease, hypertension, hypothyroidism, IBS with diarrhea presents from home with complaints of weakness. She states she has been taking medication for C. difficile diarrhea for the past several weeks. She has also had poor oral intake. She had 5 episodes of diarrhea this morning. She lives alone and ambulates with a walker. In the ER she was found to have mild leukocytosis of 11.4, hemoglobin of 9 which is near her baseline of 9.2-11.9, positive UA, sodium of 147, GFR 53 with baseline of 54-57, chest x-ray showed no acute cardiopulmonary abnormality. She has redness of bilateral lower extremities right worse than the left. She states her legs are always swollen denies any pain in her legs. She is being admitted for UTI and dehydration. She was started on ceftriaxone and IV fluids in the emergency room. She continues to have diarrhea this morning. She states this is her third episode of C. difficile this year. She was started on this current dose of vancomycin on December 07, 2020 by her primary care physician Dr. Niño. I spoke with Dr. Rascon, infectious disease at the [facility] today regarding his recommendation for treating her recurrent C. difficile and he is in agreement with continuing the vancomycin taper. He states she may benefit from a gastroenterology consult for a fecal transplant once she has been discharged. WBCs have gone up to from 12.8 to 15.1, potassium is normalized at 3.4. Urine culture is growing Klebsiella pneumoniae but a sensitive to ceftriaxone. I will continue with vancomycin and ceftriaxone. Her blood pressure is elevated so I will start her on losartan 25 mg. She is working with physical therapy and is ambulating with a walker. Plan #1 continue with ceftriaxone day 3 #2 Encourage oral hydration #3 CBC and CMP in the morning #4 Continue home medications for comorbidities #5 continue with vancomycin taper and probiotic #6 replete potassium as needed - Problems/Diagnosis (1) Urinary tract infection Problem: Acute Qualifiers: (2) Colitis, Clostridium difficile Problem: Acute (3) Hypernatremia Problem: Acute (4) H/O kidney transplant Problem: Acute (5) Generalized weakness Problem: Acute (6) Gait instability Problem: Acute (7) Atrial fibrillation Problem: Chronic (8) Hyperlipidemia Problem: Chronic (9) Hypothyroidism Problem: Chronic (10) Hypertension Problem: Chronic (11) Hypokalemia due to excessive gastrointestinal loss of potassium Problem: Acute
[2020-12-12] MEDS: ENOXAPARIN SODIUM 40 MG/0.4 ML SYRG SC SCH (12:55)
[2020-12-12] MEDS: ROSUVASTATIN CALCIUM 5 MG TABLET PO SCH (17:07)
[2020-12-12] MEDS: SERTRALINE HCL 50 MG TABLET PO SCH (20:00)
[2020-12-12] MEDS: MIRTAZAPINE 15 MG TABLET PO SCH (20:02)
[2020-12-12] MEDS: INSULIN GLARGINE,HUM.REC.ANLOG 100 UNITS/ML VIAL SC SCH (20:08)
[2020-12-13] MEDS: VANCOMYCIN HCL 125 MG CAPSULE PO SCH ×2 (01:35→09:18)
[2020-12-13 06:32] LABS: Hematocrit 30.4 % (37.0-47.0); Hemoglobin 9.3 gm/dL (12.5-16.0); Mean Cell Volume 93.8 fl (78-100); Mean Corpuscular Hemoglobin 28.7 pg (27-31); Mean Corpuscular Hgb Conc 30.6 g/dl (32-36); Mean Platelet Volume 9.6 fl (8-12.5); Neutrophil # 5.3 K/mm3 (1.3-6.0); Neutrophil % 72.7 % (42-75.0); Platelet Count 155 K/mm3 (150-450); Red Blood Count 3.24 M/mm3 (4.2-5.4); Red Cell Distribution Width 15.6 % (11.5-14.0); White Blood Count 7.3 K/mm3 (4.0-10.5)
[2020-12-13] MEDS: LEVOTHYROXINE SODIUM 100 MCG TABLET PO SCH (06:40)
[2020-12-13 06:41] LABS: Albumin * 2.6 gm/dl (3.4-5.0); Anion Gap 9.2 mmol/L (6.8-13.8); Bilirubin, Total 0.2 mg/dL (0.0-1.1); Ca. Corrected For Albumin 9.8 mg/dL (8.4-10.2); Carbon Dioxide 32.5 mmol/L (24-32.6); Potassium 3.7 mmol/L (3.4-4.6); Total Protein 5.7 gm/dL (6.2-8.2)
[2020-12-13] MEDS: INSULIN REGULAR, HUMAN 100 UNITS/ML VIAL SC SCH (06:55)
[2020-12-13] MEDS ORDERED: LOSARTAN POTASSIUM 50 MG TABLET PO SCH (09:00)
[2020-12-13] MEDS: TACROLIMUS ANHYDROUS 0.5 MG CAPSULE PO SCH (09:17)
[2020-12-13] MEDS: MYCOPHENOLATE MOFETIL 500 MG TABLET PO SCH (09:17)
[2020-12-13] MEDS: AMIODARONE HCL 200 MG TABLET PO SCH (09:17)
[2020-12-13] MEDS: MULTIVITAMINS 1 CAP CAPSULE PO SCH (09:18)
[2020-12-13] MEDS: ARIPiprazole 10 MG TABLET PO SCH (09:18)
[2020-12-13] MEDS: POTASSIUM BICARBONATE/CIT AC 25 MEQ TABLET.EFF PO SCH (09:18)
[2020-12-13] MEDS: ASPIRIN 325 MG TABLET.DR PO SCH (09:18)
[2020-12-13] MEDS: CALCIUM CARBONATE/VITAMIN D3 1 TAB TABLET PO SCH (09:18)
[2020-12-13] MEDS: SACCHAROMYCES BOULARDII 250 MG CAPSULE PO SCH (09:18)
[2020-12-13] MEDS: TOLTERODINE TARTRATE 4 MG CAPSULE PO SCH (09:19)
[2020-12-13] MEDS: ASCORBIC ACID PO SCH (09:19)
[2020-12-13] MEDS: CRANBERRY PO SCH (09:19)
[2020-12-13] MEDS: CHOLECALCIFEROL 1,000 UNIT CAPSULE PO SCH (09:19)
[2020-12-13] MEDS: METOPROLOL TARTRATE 25 MG TABLET PO SCH (09:19)
--- NOTE | 2020-12-13 09:21 | DS ---
(1) Urinary tract infection Problem: Acute Qualifiers: (2) Colitis, Clostridium difficile Problem: Acute (3) Hypernatremia Problem: Acute (4) H/O kidney transplant Problem: Acute (5) Generalized weakness Problem: Acute (6) Gait instability Problem: Acute (7) Atrial fibrillation Problem: Chronic (8) Hyperlipidemia Problem: Chronic (9) Hypothyroidism Problem: Chronic (10) Hypertension Problem: Chronic (11) Hypokalemia due to excessive gastrointestinal loss of potassium Problem: Acute (12) Stage II pressure ulcer of buttock Diagnosis(s): Present on admission to the hospital. Problem: Acute Qualifiers: Laterality: left Qualified Code(s): L89.322 - Pressure ulcer of left buttock, stage 2 Hospital Course: 75-year-old female with a past medical history of C. difficile colitis, CKD, bipolar disorder, atrial fibrillation, anxiety, kidney cancer status post transplant, depression, diabetes mellitus, GERD, anxiety, heart disease, hypertension, hypothyroidism, IBS with diarrhea presents from home with complaints of weakness. She states she has been taking medication for C. difficile diarrhea for the past several weeks. She has also had poor oral intake. She had 5 episodes of diarrhea this morning. She lives alone and ambulates with a walker. In the ER she was found to have mild leukocytosis of 11.4, hemoglobin of 9 which is near her baseline of 9.2-11.9, positive UA, sodium of 147, GFR 53 with baseline of 54-57, chest x-ray showed no acute cardiopulmonary abnormality. She has redness of bilateral lower extremities right worse than the left. She states her legs are always swollen denies any pain in her legs. She is being admitted for UTI and dehydration. She was started on ceftriaxone and IV fluids in the emergency room. She continues to have diarrhea this morning. She states this is her third episode of C. difficile this year. She was started on this current dose of vancomycin on December 07, 2020 by her primary care physician Dr. Niño. I spoke with Dr. Rascon, infectious disease at the [facility] today regarding his recommendation for treating her recurrent C. difficile and he is in agreement with continuing the vancomycin taper. He states she may benefit from a gastroenterology consult for a fecal transplant once she has been discharged. She has a stage II pressure ulcer on her left buttock that was present on admission to the hospital. WBCs have normalized down to 7.3, potassium is normalized at 3.7. Urine culture is growing Klebsiella pneumoniae but a sensitive to ceftriaxone. She has completed 3 days of ceftriaxone. I will send her home on cefuroxime 250 mg twice daily for 3 more days. She will continue with the vancomycin taper which was already prescribed by her primary care physician Dr. Niño. Her blood pressure was elevated during her hospitalization and I have started her on losartan 50 mg daily. She will need follow-up with her primary care provider within the next 1 to 2 weeks. Giselle Martino is homebound due to C. difficile colitis. The need for chcf is for wound care, monitoring of healing and medication education and management due to new meds. The need for physical therapy is for strengthening, endurance issues, mobility issues issues, ADL teaching to be safe and range of motion. The need for home health care skilled services is directly related to the time spent [id number] with the person. Procedures Performed: none Results and Findings: Pending Mircobiology Results 12/10/20 11:47 Blood Blood Culture - Preliminary NO GROWTH AFTER 48 HOURS 12/10/20 11:30 Blood Blood Culture - Preliminary NO GROWTH AFTER 48 HOURS Lab Pending Results 12/10/20 11:15: Urine Color Yellow, Urine Appearance Cloudy, Urine pH 5.0, Ur Specific [place] 1.020, Urine Protein Negative, Urine Glucose (UA) Negative, Urine Ketones Negative, Urine Blood 5 H, Urine Nitrate Positive H, Urine Bilirubin Negative, Urine Urobilinogen Normal, Ur Leukocyte Esterase 25 H, Urine RBC 0-5, Urine WBC 5-10 H, Ur Epithelial Cells 0-5, Urine Bacteria 3+ H, Urine Culture Comments Culture to follow 12/10/20 11:30: WBC 11.4 H, RBC 3.13 L, Hgb 9.0 L, Hct 29.3 L, MCV 93.6, MCH 28.8, MCHC 30.7 L, RDW 15.6 H, Plt Count 131 L, MPV 10.0, Immature Gran % (Auto) 0.40, Immature Gran # (Auto) 0.04 H, Neutrophils % 88.7 H, Lymphocytes % 4.1 L, Monocytes % 6.2, Eosinophils % 0.4, Basophils % 0.2, Nucleated RBC % 0.0, Neutrophils # 10.1 H, Lymphocytes # 0.47 L, Monocytes # 0.7, Eosinophils # 0.1, Absolute Basophils 0.0 12/10/20 11:30: Sodium 145 H, Plasma Sodium 147 H, Potassium 3.4, Chloride 109 H, Carbon Dioxide 25.1, Anion Gap 14.3 H, BUN 19 D, Creatinine 1.07, Est GFR (Non-Af Amer) 53 L, BUN/Creatinine Ratio 17.8, Random Glucose 224 H, Calcium 8 .7, Calcium Adj for Albumin 9.3, Magnesium 1.1 L, Total Bilirubin 0.1, AST 5, ALT 13 L, Alkaline Phosphatase 125, Troponin I Less than 0.017, Total Protein 5.9 L, Albumin 2.8 L, Lipase 20 L 12/10/20 11:30: Lactic Acid, Venous 1.9 12/10/20 12:40: SARS-CoV-2 (PCR) Not detected 12/11/20 06:24: WBC 12.8 H, RBC 3.38 L, Hgb 9.6 L, Hct 31.6 L, MCV 93.5, MCH 28.4, MCHC 30.4 L, RDW 15.5 H, Plt Count 128 L, MPV 9.6, Immature Gran % (Auto) 0.40, Immature Gran # (Auto) 0.05 H, Neutrophils % 87.2 H, Lymphocytes % 5.4 L, Monocytes % 6.4, Eosinophils % 0.4, Basophils % 0.2, Nucleated RBC % 0.0, Neutrophils # 11.2 H, Lymphocytes # 0.69 L, Monocytes # 0.8, Eosinophils # 0.1, Absolute Basophils 0.0 12/11/20 06:24: Sodium 146 H, Plasma Sodium 147 H, Potassium 3.1 L, Chloride 110 H, Carbon Dioxide 26.2, Anion Gap 12.9, BUN 11, Creatinine 0.87, Est GFR (Non-Af Amer) 67 D, BUN/Creatinine Ratio 12.6, Random Glucose 163 H, Calcium 8.6, Calcium Adj for Albumin 9.1, Total Bilirubin 0.2, AST 7, ALT 13 L, Alkaline Phosphatase 139, Total Protein 6.1 L, Albumin 3.0 L 12/12/20 06:24: WBC 15.1 H, RBC 3.58 L, Hgb 10.1 L, Hct 33.1 L, MCV 92.5, MCH 28.2, MCHC 30.5 L, RDW 15.5 H, Plt Count 166, MPV 10.1, Neutrophils % (Manual) 90 H, Lymphocytes % (Manual) 3 L, Monocytes % (Manual) 7, Neutrophils # (Manual) 13.6 H, Lymphocytes # (Manual) 0.5 L, Monocytes # (Manual) 1.1 H, Platelet Estimate Normal, RBC Morphology Normal 12/12/20 06:24: Sodium 145 H, Plasma Sodium 146 H, Potassium 3.4, Chloride 108 H, Carbon Dioxide 28.4, Anion Gap 12.0, BUN 8, Creatinine 0.89, Est GFR (Non-Af Amer) 66, BUN/Creatinine Ratio 9.0, Random Glucose 155 H, Calcium 8.8, Calcium Adj for Albumin 9.2, Total Bilirubin 0.3, AST 6, ALT 13 L, Alkaline Phosphatase 149, Total Protein 6.5, Albumin 3.1 L 12/13/20 06:21: WBC 7.3 D, RBC 3.24 L, Hgb 9.3 L, Hct 30.4 L, MCV 93.8, MCH 28.7, MCHC 30.6 L, RDW 15.6 H, Plt Count 155, MPV 9.6, Immature Gran % (Auto) 0.40, Immature Gran # (Auto) 0.03, Neutrophils % 72.7, Lymphocytes % 11.2 L, Monocytes % 11.6 H, Eosinophils % 3.8 H, Basophils % 0.3, Nucleated RBC % 0.0, Neutrophils # 5.3, Lymphocytes # 0.82 L, Monocytes # 0.9, Eosinophils # 0.3, Absolute Basophils 0.0 12/13/20 06:21: Sodium 147 H, Plasma Sodium 147 H, Potassium 3.7, Chloride 109 H, Carbon Dioxide 32.5, Anion Gap 9.2, BUN 11, Creatinine 1.00, Est GFR (Non-Af Amer) 57 L, BUN/Creatinine Ratio 11.0, Random Glucose 78 D, Calcium 9.0, Calcium Adj for Albumin 9.8, Total Bilirubin 0.2, AST 5, ALT 12 L, Alkaline Phosphatase 124, Total Protein 5.7 L, Albumin 2.6 L Discharge Location: Home Disposition: [facility]: [facility] Home Health Condition: Fair Discharge Activity: Activity as tolerated Discharge Diet: General/regular food Referrals: Dwaine Niño MD [Primary Care Provider] - Problem Oriented Discharge Instructions to Patient/Family: Clostridioides Difficile Infection, [id number], Urinary Tract Infection, Adult, [id number], Cellulitis, Adult, Vura-[id number] Additional Patient Instructions (free text): F/U appointment with ThursdayDecember 26 @ 11:00 am [facility] ongoing. Please call and fax discharge information. Prescriptions (Any new or edited meds): Cefuroxime Axetil [Cefuroxime] 250 mg PO BID #6 tab Transmission Status: Received by [facility] Losartan Potassium [Cozaar] 50 mg PO DAILY #20 tab Transmission Status: Received by [facility] Complete Home Medications List: Complete Home Medication List: Mycophenolate Mofetil [Cellcept] 1,000 mg PO BID 12/14/14 Tacrolimus [Prograf] 2 mg PO BID 12/14/14 Baclofen 10 mg PO QID PRN 01/24/15 Levothyroxine Sodium [Synthroid] 0.1 mg PO DAILY 04/03/15 HYDROcodone/ACETAMINOPHEN [Lorcet 5-325 mg Tablet] 1 ea PO Q6H PRN #40 tab 04/17 Multivitamins [Multivitamin Shawn] 1 cap PO DAILY #30 cap 04/11/15 aspirin 325 mg tablet,delayed release 325 mg PO DAILY 07/07/18 cholecalciferol (vitamin D3) 50 mcg (2,000 unit) capsule 2,000 unit PO DAILY 07/07/18 cranberry concentrate-ascorbic acid 140 mg-100 mg capsule 4,200 mg PO DAILY cap 07/07/18 ondansetron HCl 4 mg tablet 4 mg PO QID PRN 07/07/18 metoprolol tartrate 25 mg tablet 25 mg PO BID tab 10/26/18 Acetaminophen [Tylenol] 1 - 2 tab PO Q6H PRN 07/18/19 Insulin Detemir [Levemir] 28 unit SQ HS 07/18/19 Insulin Regular, Human [Novolin R] See Protocol SC AC 07/18/19 Amiodarone HCl [Pacerone] 100 mg PO DAILY 10/26/20 Calcium Citrate/Vitamin D3 [Calcium Citrate - Vit D Tablet] 1 ea PO BID 10/26/20 Vancomycin HCl [Vancomycin] 125 mg PO Q6H #60 cap 10/28/20 aripiprazole 10 mg tablet 10 mg PO DAILY #30 tab 11/05/20 mirtazapine 30 mg tablet 30 mg PO HS #30 tab 11/05/20 sertraline 100 mg tablet 150 mg PO HS #45 tab 11/05/20 Alprazolam 1 mg PO QID PRN 12/10/20 Diphenoxylate HCl/Atropine [Lomotil 2.5-0.025 mg Tablet] 2 ea PO QID PRN 12/10/20 Fesoterodine Fumarate [Toviaz] 8 mg PO DAILY 12/10/20 Saccharomyces Boulardii [Florastor] 250 mg PO BID 12/10/20 Cefuroxime Axetil [Cefuroxime] 250 mg PO BID #6 tab 12/13/20 Losartan Potassium [Cozaar] 50 mg PO DAILY #20 tab 12/13/20 Forms: Patient Portal Registration
[2020-12-13 11:06] VITALS: BP 145/65
== END 2020-12-13 11:55 | disposition home health service (06) | DRG 690 ==
LOC: ER 11:00 → MS 11:00
PROVIDERS: ADMIT Internal Medicine; ATTEND Internal Medicine
DX: Z94.0 Kidney transplant status; R53.1 Weakness; E03.9 Hypothyroidism, unspecified; E11.9 Type 2 diabetes mellitus without complications; I48.20 Chronic atrial fibrillation, unspecified; E87.6 Hypokalemia; E78.5 Hyperlipidemia, unspecified; N39.0 Urinary tract infection, site not specified; I10 Essential (primary) hypertension; R26.9 Unspecified abnormalities of gait and mobility; E87.0 Hyperosmolality and hypernatremia; B96.1 Klebsiella pneumoniae [K. pneumoniae] as the cause of diseases classified elsewhere; L89.322 Pressure ulcer of left buttock, stage 2; A04.72 Enterocolitis due to Clostridium difficile, not specified as recurrent; Z79.4 Long term (current) use of insulin; E86.0 Dehydration